=== PATIENT | female | born 1975 | race Caucasian/White ===

== ENCOUNTER 2016-05-12 22:37 | Inpatient (IN) ==
[2016-05-12] MEDS ORDERED: *HR* LORazepam 1 MG TABLET PO PRN (23:50)
[2016-05-12] MEDS ORDERED: Ibuprofen 400 MG TABLET PO PRN (23:50)
[2016-05-12] MEDS ORDERED: Mag Hydrox/Al Hydrox/Simeth 30 ML UDC PO PRN (23:50)
[2016-05-12] MEDS ORDERED: *HR* LORazepam 2 MG/ML VIAL IM PRN (23:50)
[2016-05-12] MEDS ORDERED: MOM Conc 10 ML UD.LIQ PO PRN (23:50)
[2016-05-13] MEDS: Haloperidol Lactate 5 MG/ML VIAL IM PRN (02:50)
[2016-05-13] MEDS: traZODone 50 MG TABLET PO PRN ×2 (03:26→20:46)
[2016-05-13] MEDS ORDERED: Naloxone 0.4 MG/ML INJ IVP PRN (03:43)
[2016-05-13] MEDS ORDERED: *HR* LORazepam 2 MG/ML VIAL IM PRN (03:46)
[2016-05-13 04:52] LABS: Basophils # 0.1 K/mcL (0.0-0.2); Basophils % 0.9 %; Eosinophils # 0.3 K/mcL (0.0-0.6); Eosinophils % 4.1 %; Hematocrit 38.7 % (35.3-44.9); Hemoglobin 12.7 g/dL (11.5-15.4); Immature Granulocytes % 0.3 % (0-4); Lymphocytes # 2.6 K/mcL (0.6-4.6); Lymphocytes % 37.6 %; Mean Corpuscular HGB Conc 32.8 g/dL (31.6-35.5); Mean Corpuscular Hemoglobin 28.9 pg (28.0-33.3); Mean Corpuscular Volume 88.2 fL (83.0-100.0); Mean Platelet Volume 9.3 fL (9.4-12.4); Monocytes # 0.5 K/mcL (0.0-1.3); Monocytes % 7.7 %; Neutrophils # 3.4 K/mcL (1.6-8.9); Platelet Count 182 K/mcL (140-400); Red Blood Count 4.39 M/mcL (3.82-4.97); Red Cell Distribution Width 13.5 % (11.5-14.5); Segmented Neutrophils % 49.4 %
[2016-05-13 05:04] LABS: Alanine Aminotransferase 10 Units/L (0-55); Albumin 3.3 g/dL (3.5-5.0); Albumin/Globulin Ratio 1.1 (1.1-2.2); Alkaline Phosphatase 36 Units/L (38-126); Aspartate Amino Transferase 14 Units/L (5-34); BUN/Creatinine Ratio 13 (6-26); Bilirubin,Total 0.3 mg/dL (0.2-1.2); Blood Urea Nitrogen 14 mg/dL (7-20); Calcium 8.8 mg/dL (8.6-10.8); Carbon Dioxide 17 mEq/L (19-29); Chloride 113 mEq/L (98-109); Creatine Kinase 57 Units/L (29-168); Globulin 3.1 g/dL (2.4-3.5); Glucose 101 mg/dL (70-99); Osmolality,Calculated 291 (280-300); Potassium 3.7 mEq/L (3.5-4.5); Sodium 140 mEq/L (136-145); Total Protein 6.4 g/dL (6.0-8.3); eGFR For African Americans > 60 (> 60); eGFR For Non-African Americans 58 (> 60)
[2016-05-13 05:24] LABS: Thyroid Stimulating Hormone 1.315 mcIU/mL (0.350-4.840)
[2016-05-13 05:54] LABS: Bilirubin,Urine Negative (Negative); Blood,Urine Trace (Negative); Clarity,Urine Cloudy (Clear); Color,Urine Yellow (Yellow); Glucose,Urine (UA) Normal (Normal); Ketones,Urine Negative (Negative); Leukocyte Esterase,Urine Large (Negative); Nitrite,Urine Negative (Negative); Protein,Urine Trace mg/dL (Neg-Trace); Specific Gravity,Urine 1.024 (1.010-1.025); Urobilinogen,Urine Normal (Normal)
[2016-05-13 05:57] LABS: Bacteria,Urine Moderate per hpf (None-Few); Squamous Epithelial Cell,Urine Many per lpf (None-Few); WBC,Urine TNTC per hpf (0-3)
[2016-05-13 06:03] LABS: Amphetamine Screen,Urine Negative ng/mL (Cutoff=1000); Barbiturate Screen,Urine Negative ng/mL (Cutoff=200); Benzodiazepines Screen,Urine Positive ng/mL (Cutoff=200); Cannabinoid Screen,Urine Negative ng/mL (Cutoff = 50); Cocaine Screen,Urine Negative ng/mL (Cutoff= 300); Opiate Screen,Urine Negative ng/mL (Cutoff=300); Phencyclidine Screen,Urine Positive ng/mL (Cutoff=25)
[2016-05-13 06:13] LABS: Mucus,Urine Moderate (Few)
[2016-05-13 06:15] LABS: Prolactin 12.59 ng/mL (5.18-26.53)
[2016-05-13] MEDS: Vitamin B Complex/Vit C/Vit E 1 EACH TABLET PO SCH (08:58)
[2016-05-13] MEDS: Nicotine 21 MG PATCH.TD24 TD SCH (08:58)
[2016-05-13] MEDS: clonazePAM 1 MG TABLET PO SCH ×3 (08:59→20:46)
[2016-05-13] MEDS: Folic Acid 1 MG TABLET PO SCH (08:59)
[2016-05-13] MEDS: Thiamine (B-1) 100 MG TABLET PO SCH (08:59)
[2016-05-13] MEDS: hydrOXYzine pamoate 25 MG CAPSULE PO PRN (10:17)
--- NOTE | 2016-05-13 11:52 | Psychiatry History & Physical ---
Date of Encounter: 05/13/16 Time of Encounter: 12:30 History of Present Illness Patient Stated Chief Complaint: suicidal Medicare Admission Attestation: For traditional Medicare patients the provided hospital inpatient services are reasonable and necessary and in the case of services not specified as inpatient -only under 42 CFR 419.22 (n), that they are appropriately provided as inpatient services in accordance 42 CFR 412.3. For [facility] the patient may reasonably be expected to be discharged or transferred to a hospital within 96 hours after admission to the Critical [facility]. Admitted From: Emergency Dept History of Present Illness: Ms. Pak is a 41 year old female with long history of psychiatric treatment for major depression bipolar and PTSD and substance abuse. Patient presented to emergency room with suicidal ideation and depression she stressed out by several stressors including mother's ill with cancer and she is having some family issues difficulties . She was reporting poor sleep also complained that she was given Wellbutrin by a psychiatrist and she did not tolerate it and she really recommended her mortgage more depressed. Also has a history of seizures versus pseudoseizures and she believes that she has been detained to take her medication as ordered. Patient had multiple psychiatric admissions and outpatient treatments she attempted suicide" attempt record over 50 times since she was a teenager also after admission to 180 patient attempted to strangle herself with a pillowcase and she was saved and evaluated medically and she is without any complications when she was asked why he did this she has a simplistic with "because I do not want to live. Then she said I cannot live without my mother she does everything for me. Past Med Surg Social Fam HX - Past Medical History Medical history: asthma, COPD, DVT, pulmonary embolus, other - Past Psychiatric History Psychiatric history: Reports: anxiety, bipolar, depression, PTSD, prior suicide attempt, previous psychiatric hospitalization Family psychiatric history: Unknown Family History of Suicide: Unknown - Past Surgical History Surgical History: hysterectomy, other - Social History Smoking Status: Current every day smoker Smokeless Tobacco Status: No Alcohol use: none Drug use: none - Family History Mother Living Status: Still Living Hx Family Respiratory Disorders: Yes (lung cancer) Father Living Status: Hx Family Respiratory Disorders: Yes (lung cancer) Medications & Allergies Albuterol Sulfate [Proair Respiclick] 2 puff IH Q4H PRN 03/25/15 [History] Beclomethasone Diprop 80mcg [QVAR 80 mcg] 1 puff IH BIDR PRN 03/25/15 [History] ClonazePAM [Klonopin] 1 mg PO BID 03/25/15 [History] Haloperidol [Haldol] 10 mg PO BID 03/25/15 [History] HydrOXYzine Pamoate 50 mg PO TID 03/25/15 [History] Levothyroxine [Synthroid] 150 mcg PO QAM 03/25/15 [History] Prazosin [Minipress] 1 mg PO HS 03/25/15 [History] Quetiapine Fumarate [Seroquel] 800 mg PO HS 03/25/15 [History] Sertraline [Zoloft] 50 mg PO BID 03/25/15 [History] Topiramate [Topamax] 200 mg PO BID 03/25/15 [History] SUMAtriptan Succinate [Imitrex] 6 mg SQ PRN PRN 12/21/15 [History] Allergies duloxetine [From Cymbalta] Allergy (Verified 03/25/15 22:16) Difficulty Breathing Hives moxifloxacin [From Avelox] Allergy (Verified 03/25/15 22:16) Hives Penicillins Allergy (Verified 03/25/15 22:16) Difficulty Breathing Hives Review of Systems Psychiatric: Reports: depression, anxiety, abnormal sleep pattern, suicidal ideation, hopelessness, mood swings Mental Status Exam Patient orientation: Yes Person, Yes Time, Yes Place Level of alertness: Alert Patient appearance: Appropriate, Well Groomed Behavior: calm, cooperative, guarded Psychomotor activity: Normal Eye contact: Maintains Eye Contact Mood description: Depressed, Anxious, Labile, Irritable Affect description: congruent with mood, full range, blunted Speech pattern: Normal rate, Normal rhythm, Normal tone, Limited Speech volume: Normal Thought process: Linear, Goal Oriented Thought content: Yes Suicidal ideation, Yes Preoccupation Perceptual disturbances: No Auditory hallucinations, No Visual hallucinations Attention span: Unable to Focus Memory description: Grossly Intact Patient reliability: Not Reliable Historian Intelligence estimate: Average Judgment: Fair Insight: Partial Results - Vital Signs Vital signs: Temp Pulse Resp BP 98.2 F 84 14 107/75 05/12/16 22:37 05/12/16 22:37 05/12/16 22:37 05/12/16 22:37 - Drug Levels and Toxicology Drug Levels and Toxicology: Drug Levels and Toxicity 05/13/16 04:00 Urine Opiates Screen Negative Ur Barbiturates Screen Negative Ur Phencyclidine Scrn Positive H Ur Amphetamines Screen Negative U Benzodiazepines Scrn Positive H Urine Cocaine Screen Negative U Marijuana (THC) Screen Negative - Labs Labs: Laboratory Last Values WBC 6.9 K/mcL (4.3-11.1) 05/13/16 04:29 RBC 4.39 M/mcL (3.82-4.97) 05/13/16 04:29 Hgb 12.7 g/dL (11.5-15.4) 05/13/16 04:29 Hct 38.7 % (35.3-44.9) 05/13/16 04:29 MCV 88.2 fL (83.0-100.0) 05/13/16 04:29 MCH 28.9 pg (28.0-33.3) 05/13/16 04:29 MCHC 32.8 g/dL (31.6-35.5) 05/13/16 04:29 RDW 13.5 % (11.5-14.5) 05/13/16 04:29 Plt Count 182 K/mcL (140-400) 05/13/16 04:29 MPV 9.3 fL (9.4-12.4) L 05/13/16 04:29 Immature Gran % 0.3 % (0-4) 05/13/16 04:29 Seg Neutrophils % 49.4 % 05/13/16 04:29 Lymphocytes % 37.6 % 05/13/16 04:29 Monocytes % 7.7 % 05/13/16 04:29 Eosinophils % 4.1 % 05/13/16 04:29 Basophils % 0.9 % 05/13/16 04:29 Neutrophils # 3.4 K/mcL (1.6-8.9) 05/13/16 04:29 Lymphocytes # 2.6 K/mcL (0.6-4.6) 05/13/16 04:29 Monocytes # 0.5 K/mcL (0.0-1.3) 05/13/16 04:29 Eosinophils # 0.3 K/mcL (0.0-0.6) 05/13/16 04:29 Basophils # 0.1 K/mcL (0.0-0.2) 05/13/16 04:29 Sodium 140 mEq/L (136-145) 05/13/16 04:29 Potassium 3.7 mEq/L (3.5-4.5) 05/13/16 04:29 Chloride 113 mEq/L (98-109) H 05/13/16 04:29 Carbon Dioxide 17 mEq/L (19-29) L 05/13/16 04:29 BUN 14 mg/dL (7-20) 05/13/16 04:29 Creatinine 1.04 mg/dL (0.57-1.11) 05/13/16 04:29 Est GFR ( Amer) > 60 (> 60) 05/13/16 04:29 Est GFR (Non-Af Amer) 58 (> 60) L 05/13/16 04:29 BUN/Creatinine Ratio 13 (6-26) 05/13/16 04:29 Glucose 101 mg/dL (70-99) H 05/13/16 04:29 Calculated Osmolality 291 (280-300) 05/13/16 04:29 Calcium 8.8 mg/dL (8.6-10.8) 05/13/16 04:29 Total Bilirubin 0.3 mg/dL (0.2-1.2) 05/13/16 04:29 AST 14 Units/L (5-34) 05/13/16 04:29 ALT 10 Units/L (0-55) 05/13/16 04:29 Alkaline Phosphatase 36 Units/L (38-126) L 05/13/16 04:29 Creatine Kinase 57 Units/L (29-168) 05/13/16 04:29 Serum Total Protein 6.4 g/dL (6.0-8.3) 05/13/16 04:29 Albumin 3.3 g/dL (3.5-5.0) L 05/13/16 04:29 Globulin 3.1 g/dL (2.4-3.5) 05/13/16 04:29 Albumin/Globulin Ratio 1.1 (1.1-2.2) 05/13/16 04:29 TSH 1.315 mcIU/mL (0.350-4.840) 05/13/16 04:29 Prolactin 12.59 ng/mL (5.18-26.53) 05/13/16 04:29 Random Cortisol 5.8 mcg/dl 05/13/16 04:29 Urine Color Yellow (Yellow) 05/13/16 04:00 Urine Clarity Cloudy (Clear) A 05/13/16 04:00 Urine pH 6.0 pH Units (5.0-8.0) 05/13/16 04:00 Ur Specific [place] 1.024 (1.010-1.025) 05/13/16 04:00 Urine Protein Trace mg/dL (Neg-Trace) 05/13/16 04:00 Urine Glucose (UA) Normal mg/dL (Normal) 05/13/16 04:00 Urine Ketones Negative mg/dL (Negative) 05/13/16 04:00 Urine Blood Trace (Negative) H 05/13/16 04:00 Urine Nitrite Negative (Negative) 05/13/16 04:00 Urine Bilirubin Negative (Negative) 05/13/16 04:00 Urine Urobilinogen Normal mg/dL (Normal) 05/13/16 04:00 Ur Leukocyte Esterase Large (Negative) H 05/13/16 04:00 Urine Microscopic RBC 5-15 per hpf (0-3) H 05/13/16 04:00 Urine Microscopic WBC TNTC per hpf (0-3) H 05/13/16 04:00 Ur Squamous Epith Cells Many per lpf (None-Few) H 05/13/16 04:00 Urine Bacteria Moderate per hpf (None-Few) H 05/13/16 04:00 Hyaline Casts Test Not Performed 05/13/16 04:00 Urine Mucus Moderate (Few) H 05/13/16 04:00 Ur Culture Indicated? YES (NO) A 05/13/16 04:00 Urine Opiates Screen Negative ng/mL (Lzbibx=395) 05/13/16 04:00 Ur Barbiturates Screen Negative ng/mL (Qtbdgn=582) 05/13/16 04:00 Ur Phencyclidine Scrn Positive ng/mL (Cutoff=25) H 05/13/16 04:00 Ur Amphetamines Screen Negative ng/mL (Fgncll=2406) 05/13/16 04:00 U Benzodiazepines Scrn Positive ng/mL (Mdrwgz=286) H 05/13/16 04:00 Urine Cocaine Screen Negative ng/mL (Cutoff= 300) 05/13/16 04:00 U Marijuana (THC) Screen Negative ng/mL (Cutoff = 50) 05/13/16 04:00 - Impressions Impressions Chest X-Ray 05/13/16 08:00 IMPRESSION: No acute cardiopulmonary process. D/ / 05/13/2016 09:05:52 Anna Zavaleta MD / [facility] Interpreting Provider: Anna Zavaleta MD Head CT 05/13/16 08:00 IMPRESSION: No acute intracranial abnormality. D/ / Kristen Nayak MD / Kristen Nayak MD Interpreting Provider: Kristen Nayak MD Assessment and Plan (1) Bipolar 1 disorder Current visit: No Status: Chronic Plan: Admit inpatient for safety and stabilization, Close observation, Suicide Precautions per unit protocol, Encourage participation in unit milieu, Group Therapy, Monitor sleep, Monitor appetite Additional Plan: will discontinue wellbutrin.pt has history of seizures. Risks, benefits, side effects, alternatives discussed w/pt: Yes Patient agreeable to treatment: Yes
--- NOTE | 2016-05-13 11:54 | Internal Medicine Consult Note ---
Date of Encounter: 05/13/16 Time of Encounter: 11:49 Internal Medicine - CN: HPI - Data of Consult Patient: new to practice Requesting Physician: Rick Metz MD - Consult Narrative Reason for consult: seizure like activity History of present illness: Ms. Pak is a 41 year old female with history of pesudo seizures, followed by Dr. Rice , neurology as outpatient. hospitalist service has been consulted for seizure-like activity that was noted last night. As per the description of the night nurse, patient was found in the room around 2 AM at night where she was found to have jerking movements of her bilateral arms and was found cyanotic as she had tied her neck with the pillow cover. After the nursing untied her neck, she was able to come back to her baseline and was fully conscious and oriented to time this and person. rafy abnormal movement lasted for ~3mins as per rafy nurse. She did not have any loss of consciousness or no bowel and bladder incontinence. As per the patient and these episodes, and the once a week, brought about by anxiety and stress and is not on any medications given the nature of pseudo seizures. Patient evaluated at the bedside this morning, denies any complaints, no dizziness, headache or abnormal movements. neurology has been consulted.CT head was done that is negative for any acute pathology. - Constitutional Constitutional: as per HPI - EENT Ears: as per HPI Nose, mouth and throat: as per HPI - Breasts Breasts: as per HPI - Cardiovascular Cardiovascular ROS IM: as per HPI - Respiratory Respiratory: as per HPI - Gastrointestinal Gastrointestinal: as per HPI - Genitourinary Genitourinary: as per HPI Menstruation: as per HPI - Musculoskeletal Musculoskeletal ROS IM: as per HPI - Integumentary Integumentary IM: as per HPI - Neurological Neurological ROS: as per HPI - Psychiatric Psychiatric: as per HPI - Endocrine Endocrine IM: as per HPI - Hematologic/Lymphatic Hematologic/Lymphatic: as per HPI Past Med Surg Social Fam HX - Past Medical History Medical history: asthma, COPD, DVT, pulmonary embolus, other Psychiatric history: anxiety, bipolar, depression - Past Surgical History Surgical History: hysterectomy, other - Social History Smoking Status: Current every day smoker Smokeless Tobacco Status: No Alcohol use: none Drug use: none - Family History Mother Living Status: Still Living Hx Family Respiratory Disorders: Yes (lung cancer) Father Living Status: Hx Family Respiratory Disorders: Yes (lung cancer) Internal Medicine - CN: Meds Albuterol Sulfate [Proair Respiclick] 2 puff IH Q4H PRN 03/25/15 [History] Beclomethasone Diprop 80mcg [QVAR 80 mcg] 1 puff IH BIDR PRN 03/25/15 [History] ClonazePAM [Klonopin] 1 mg PO BID 03/25/15 [History] Haloperidol [Haldol] 10 mg PO BID 03/25/15 [History] HydrOXYzine Pamoate 50 mg PO TID 03/25/15 [History] Levothyroxine [Synthroid] 150 mcg PO QAM 03/25/15 [History] Prazosin [Minipress] 1 mg PO HS 03/25/15 [History] Quetiapine Fumarate [Seroquel] 800 mg PO HS 03/25/15 [History] Sertraline [Zoloft] 50 mg PO BID 03/25/15 [History] Topiramate [Topamax] 200 mg PO BID 03/25/15 [History] SUMAtriptan Succinate [Imitrex] 6 mg SQ PRN PRN 12/21/15 [History] Allergies duloxetine [From Cymbalta] Allergy (Verified 03/25/15 22:16) Difficulty Breathing Hives moxifloxacin [From Avelox] Allergy (Verified 03/25/15 22:16) Hives Penicillins Allergy (Verified 03/25/15 22:16) Difficulty Breathing Hives Internal Medicine - CN: Exam - Constitutional Vitals: Temp Pulse Resp BP 98.2 F 84 14 107/75 05/12/16 22:37 05/12/16 22:37 05/12/16 22:37 05/12/16 22:37 General appearance IM: Present: disheveled, A&O X 3, no acute distress Exam: neck- supple chest- b/l clear,n o added sounds CVS-s1 and s2, no m/r/g abd-soft, non tender, bs are present ext- no edema neuro- no focal deficits, alert and orientedx3. Internal Medicine - CN: Reslt - Labs CBC & Chem 7: 05/13/16 04:29 05/13/16 04:29 Labs: Short CBC 05/13/16 Range/Units 04:29 WBC 6.9 (4.3-11.1) K/mcL Hgb 12.7 (11.5-15.4) g/dL Hct 38.7 (35.3-44.9) % Plt Count 182 (140-400) K/mcL Neutrophils # 3.4 (1.6-8.9) K/mcL BMP 05/13/16 04:29 Sodium 140 Potassium 3.7 Chloride 113 H Carbon Dioxide 17 L BUN 14 Creatinine 1.04 Glucose 101 H Calcium 8.8 Liver Function 05/13/16 Range/Units 04:29 Total Bilirubin 0.3 (0.2-1.2) mg/dL AST 14 (5-34) Units/L ALT 10 (0-55) Units/L Alkaline Phosphatase 36 L (38-126) Units/L Albumin 3.3 L (3.5-5.0) g/dL Urine 05/13/16 Range/Units 04:00 Urine Color Yellow (Yellow) Urine Clarity Cloudy A (Clear) Urine pH 6.0 (5.0-8.0) pH Units Ur Specific [place] 1.024 (1.010-1.025) Urine Protein Trace (Neg-Trace) mg/dL Urine Glucose (UA) Normal (Normal) mg/dL - Impressions Impressions Chest X-Ray 05/13/16 08:00 IMPRESSION: No acute cardiopulmonary process. D/ / 05/13/2016 09:05:52 Anna Zavaleta MD / [facility] Interpreting Provider: Anna Zavaleta MD Head CT 05/13/16 08:00 IMPRESSION: No acute intracranial abnormality. D/ / Kristen Nayak MD / Kristen Nayak MD Interpreting Provider: Kristen Nayak MD - Assessment and Plan (1) Pseudoseizure Current Visit: Yes Status: Acute Assessment and plan: the episode last night was most likely 2/2 pseudoseizure. as per the patient she attempted to kill herself and was extremely anxious and stressful last night which is most likely the cause of her pseudo seizure. patinet follows with Dr. Rice as OP as is not on any meds. at the time of my assesment, patient is back to her baseline CT head is negative for any acute pathology. neurology has been consulted. will follow recommendtaion for any further intervention at this time. no new medication at this time. continue one to one observation for suicide precautions. rest of the management as per primary service. (2) Suicidal ideation Current Visit: Yes Status: Acute Consult Discharge Plan - Plan Referrals: NO,PCP [Primary Care Provider] -
--- NOTE | 2016-05-13 15:52 | Neurology - Consult Note ---
<Pablo Marin - Last Filed: 05/13/16 16:05> Date of Encounter: 05/13/16 Time of Encounter: 15:49 Assessment and Plan (1) Pseudoseizure Current Visit: Yes Status: Acute - history of pseudoseizure, follows as an outpatient with Dr. Rice, not on medication - recently started on Wellbutrin and otherwise has been taking regular medications without any alterations - she admits to 1-2/week psuedoseizures - per documentation from nurse recall around 2AM this morning seizure-like activity occurred after trying to hang herself with pillowcase, she had jerking movements but no urinary incontinence or tongue trauma, unfortunately patient unable to recall event - currently has no physical complaints, paresthesia, neck pain, or difficulty in breathing. Gait was observed and normal. Muscle strength normal. Equal pulses and anterior cervical neck appears normal without any expanding hematoma or mass - EEG performed and reviewed with Dr. Montano, viewed as normal without epileptic activity - recommend follow up with Dr. Rice and psychiatrist after discharge History of Present Illness Chief complaint: Seizure HPI: Ms. Pak is a 41 year old female history depression, bipolar, migraines, and pseudoseizures admitted to 1A unit for suicidal ideation. Patient was found after attempting to hang herself with pillowcase in her 1A room to exhibit seizure like activity. Per documentation it was described as bilateral jerky movements with stiffening that was reported to have lasted 3 minutes. She denies any physical complaints. She would not found to have any urinary incontinence or trauma such as tongue laceration. Denies any paresthesias or neck pain. She has migraines and follows with Dr. Rice where she receives Imitrex injections. EEG in the past revealed no epileptic seizure activity. Recently started on Wellbutrin 1 month ago for psychiatric illness and may be contributing to her current SI. Otherwise no new medications that would lower seizure threshold. Denies recent illness, travel, changes in medications. Past Med Surg Social Fam HX - Past Medical History Medical history: asthma, COPD, DVT, pulmonary embolus, other Psychiatric history: anxiety, bipolar, depression, PTSD, prior suicide attempt, previous psychiatric hospitalization - Past Surgical History Surgical History: hysterectomy, other - Social History Smoking Status: Current every day smoker Smokeless Tobacco Status: No Alcohol use: none Drug use: none - Family History Mother Living Status: Still Living Hx Family Respiratory Disorders: Yes (lung cancer) Father Living Status: Hx Family Respiratory Disorders: Yes (lung cancer) Medications and Allergies Albuterol Sulfate [Proair Respiclick] 2 puff IH Q4H PRN 03/25/15 [History] Beclomethasone Diprop 80mcg [QVAR 80 mcg] 1 puff IH BIDR PRN 03/25/15 [History] ClonazePAM [Klonopin] 1 mg PO BID 03/25/15 [History] Haloperidol [Haldol] 10 mg PO BID 03/25/15 [History] HydrOXYzine Pamoate 50 mg PO TID 03/25/15 [History] Levothyroxine [Synthroid] 150 mcg PO QAM 03/25/15 [History] Prazosin [Minipress] 1 mg PO HS 03/25/15 [History] Quetiapine Fumarate [Seroquel] 800 mg PO HS 03/25/15 [History] Sertraline [Zoloft] 50 mg PO BID 03/25/15 [History] Topiramate [Topamax] 200 mg PO BID 03/25/15 [History] SUMAtriptan Succinate [Imitrex] 6 mg SQ PRN PRN 12/21/15 [History] Allergies duloxetine [From Cymbalta] Allergy (Verified 03/25/15 22:16) Difficulty Breathing Hives moxifloxacin [From Avelox] Allergy (Verified 03/25/15 22:16) Hives Penicillins Allergy (Verified 03/25/15 22:16) Difficulty Breathing Hives All Systems: A 10-system review of systems was performed and is negative for pertinent findings except as documented above in the HPI. - Constitutional Constitutional ROS IM: no fever(s) - Cardiovascular Cardiovascular ROS IM: as per HPI - Respiratory Respiratory IM: as per HPI - Gastrointestinal Gastrointestinal: as per HPI - Genitourinary Genitourinary ROS: as per HPI - Musculoskeletal Musculoskeletal ROS IM: as per HPI - Integumentary Integumentary IM: as per HPI - Neurological Neurological ROS: headache(s), no abnormal gait, no abnormal hearing, no dizziness, no syncope - Psychiatric Psychiatric general PM: depression, suicidal ideation Physical Examination - Vital Signs Vital Signs: Initial Vital Signs Temp Pulse Resp BP 98.2 F 84 14 107/75 05/12/16 22:37 05/12/16 22:37 05/12/16 22:37 05/12/16 22:37 - Constitutional General appearance: comfortable - Neurologic Sensorimotor examination: intact Detailed motor examination: grossly full strength in all extremities, full strength in all major muscle groups Motor examination - right side: 5/5: deltoids, biceps, triceps, wrist flexion, wrist extension, roll reclaimer, hip flexors, tibialis Anterior, quadriceps, toe extension (EHL), plantarflexion Motor examination - left side: 5/5: deltoids, biceps, triceps, wrist flexion, wrist extension, hip flexors, roll reclaimer, quadriceps, tibialis Anterior, toe extension (EHL), plantarflexion Detailed sensory examination: intact, light touch Reflex and gait examination: intact Mental Status Examination: awake, alert, oriented to person, oriented to place, oriented to time, follows commands appropriately, answers questions appropriately, no aphasia Cranial nerve examination: PERRL, EOMI, visual gordon intact, corneal reflexes brisk symmetrically, sensory to face intact, mastication intact, no facial asymmetry is present, no dysarthria, hearing is intact symmetrically, soft palate elevates bilaterally upon phonation, flexes SCM and trapezius muscles symmetrically with full power, tongue protrudes midline, no atrophy or facial fasiculations present Results - Laboratory Findings CBC and BMP: 05/13/16 04:29 05/13/16 04:29 Abnormal lab findings: Abnormal lab results MPV 9.3 fL (9.4-12.4) L 05/13/16 04:29 Chloride 113 mEq/L (98-109) H 05/13/16 04:29 Carbon Dioxide 17 mEq/L (19-29) L 05/13/16 04:29 Est GFR (Non-Af Amer) 58 (> 60) L 05/13/16 04:29 Glucose 101 mg/dL (70-99) H 05/13/16 04:29 Alkaline Phosphatase 36 Units/L (38-126) L 05/13/16 04:29 Albumin 3.3 g/dL (3.5-5.0) L 05/13/16 04:29 Urine Clarity Cloudy (Clear) A 05/13/16 04:00 Urine Blood Trace (Negative) H 05/13/16 04:00 Ur Leukocyte Esterase Large (Negative) H 05/13/16 04:00 Urine Microscopic RBC 5-15 per hpf (0-3) H 05/13/16 04:00 Urine Microscopic WBC TNTC per hpf (0-3) H 05/13/16 04:00 Ur Squamous Epith Cells Many per lpf (None-Few) H 05/13/16 04:00 Urine Bacteria Moderate per hpf (None-Few) H 05/13/16 04:00 Urine Mucus Moderate (Few) H 05/13/16 04:00 Ur Culture Indicated? YES (NO) A 05/13/16 04:00 Ur Phencyclidine Scrn Positive ng/mL (Cutoff=25) H 05/13/16 04:00 U Benzodiazepines Scrn Positive ng/mL (Wyimoj=667) H 05/13/16 04:00 Consult Discharge Plan - Plan Referrals: [facility] [Outside] - 05/18/16 10:00 am (The above appointment is with [facility] for counseling. You will also see [facility] psychiatric prescriber, on 05/25/2016 @ 4:00pm.) <Jose A Montano E - Last Filed: 05/13/16 18:16> Date of Encounter: 05/13/16 Time of Encounter: 18:07 Assessment and Plan (1) Pseudoseizure Current Visit: Yes Status: Acute Case was discussed with Dr. Marin. I agree with his impressions and plan as stated, History of Present Illness HPI: Ms. Pak is a 41 year old female with a known history of pseudoseizure seen for the same. She was admitted for suicidal ideations, and an actual suicidal attempt last night. She is back to her normal baseline. The case was discussed with Dr. Marin. She was seen and examined independently. I agree with his history as stated. All Systems: A 10-system review of systems was performed and is negative for pertinent findings except as documented above in the HPI. Physical Examination - Vital Signs Vital Signs: Initial Vital Signs Temp Pulse Resp BP 98.2 F 84 14 107/75 05/12/16 22:37 05/12/16 22:37 05/12/16 22:37 05/12/16 22:37 Results - Laboratory Findings CBC and BMP: 05/13/16 04:29 05/13/16 04:29 Abnormal lab findings: Abnormal lab results MPV 9.3 fL (9.4-12.4) L 05/13/16 04:29 Chloride 113 mEq/L (98-109) H 05/13/16 04:29 Carbon Dioxide 17 mEq/L (19-29) L 05/13/16 04:29 Est GFR (Non-Af Amer) 58 (> 60) L 05/13/16 04:29 Glucose 101 mg/dL (70-99) H 05/13/16 04:29 Alkaline Phosphatase 36 Units/L (38-126) L 05/13/16 04:29 Albumin 3.3 g/dL (3.5-5.0) L 05/13/16 04:29 Urine Clarity Cloudy (Clear) A 05/13/16 04:00 Urine Blood Trace (Negative) H 05/13/16 04:00 Ur Leukocyte Esterase Large (Negative) H 05/13/16 04:00 Urine Microscopic RBC 5-15 per hpf (0-3) H 05/13/16 04:00 Urine Microscopic WBC TNTC per hpf (0-3) H 05/13/16 04:00 Ur Squamous Epith Cells Many per lpf (None-Few) H 05/13/16 04:00 Urine Bacteria Moderate per hpf (None-Few) H 05/13/16 04:00 Urine Mucus Moderate (Few) H 05/13/16 04:00 Ur Culture Indicated? YES (NO) A 05/13/16 04:00 Ur Phencyclidine Scrn Positive ng/mL (Cutoff=25) H 05/13/16 04:00 U Benzodiazepines Scrn Positive ng/mL (Dmhwbt=920) H 05/13/16 04:00
--- NOTE | 2016-05-13 15:57 | EEG/EMG/Oth Biometrics Report ---
EEG Procedure Report EEG Procedure: Routine EEG Procedure Note: This is a report of a 21 channel bipolar and referential montage EEG. A posterior dominant rhythm of 9-9-1/2 Hz moderate voltage alpha frequencies identified symmetrically in the posterior head regions. This rhythm attenuates symmetrically with eye opening. Superimposed beta frequencies are identified in the anterior leads symmetrically. Hyperventilation is not performed in the recording. Periods of drowsiness and stage II sleep are identified as reference by dropout of the posterior dominant rhythm and emergence of vertex activity, K complexes, and sleep spindles. Photic stimulation is performed and does not produce a driving response. EKG rhythm strip reveals what appears to be a left bundle branch block, with low -voltage potentials at 70 beats per minute. Impressions: This EEG recording is within normal limits. There is no evidence of epileptiform activity identified during the study. Comment: A normal EEG does not preclude a diagnosis of seizures or epilepsy. If the clinical suspicion for seizure activity is high, serial EEGs or perhaps a prolonged recording may increase the yield. Please correlate clinically. The documentation in the history of HPI and plan were at least partially created by [employer] recognition technology by Dr. Montano. Errors in grammar, wording or other phrases may exist. If errors are found after the documentation signed, they will be addressed individually in the addendum section of this document when appropriate.
[2016-05-13] MEDS ORDERED: traZODone 50 MG TABLET PO ONE (23:00)
[2016-05-14] MEDS: traZODone 50 MG TABLET PO PRN (01:15)
[2016-05-14] MEDS: Haloperidol Lactate 5 MG/ML VIAL IM PRN (02:31)
[2016-05-14] MEDS ORDERED: SUMAtriptan 6 MG/0.5 ML SQ PRN (09:00)
[2016-05-14] MEDS: clonazePAM 1 MG TABLET PO SCH ×2 (09:33→15:43)
[2016-05-14] MEDS: Nicotine 21 MG PATCH.TD24 TD SCH ×2 (09:35→13:51)
[2016-05-14] MEDS: Folic Acid 1 MG TABLET PO SCH (09:35)
[2016-05-14] MEDS: Vitamin B Complex/Vit C/Vit E 1 EACH TABLET PO SCH (09:35)
[2016-05-14] MEDS: Thiamine (B-1) 100 MG TABLET PO SCH (09:36)
--- NOTE | 2016-05-14 12:55 | Psychiatry Progress Note ---
Date of Encounter: 05/14/16 Time of Encounter: 12:54 Subjective Interval history: Patient is here for follow-up. Nursing staff continue to monitor patient's safety. She was seen by neurology consult and had an EEG reported none. Epileptic seizure. Or pseudoseizures. She continued to report suicidal ideation her mood is slightly improving she complain of poor sleep . her home medication are being verified by the nursing staff. Review of Systems Psychiatric: Reports: depression, anxiety, abnormal sleep pattern, suicidal ideation, hopelessness, mood swings Objective: Exam Patient orientation: Yes Person, Yes Time, Yes Place Level of alertness: Alert Patient appearance: Appropriate, Well Groomed Behavior: calm, cooperative, guarded Psychomotor activity: Normal Eye contact: Maintains Eye Contact Mood description: Depressed, Anxious, Labile, Irritable Affect description: congruent with mood, full range, blunted Speech pattern: Normal rate, Normal rhythm, Normal tone, Limited Speech volume: Normal Thought process: Linear, Goal Oriented Thought content: Yes Suicidal ideation, Yes Preoccupation Perceptual disturbances: No Auditory hallucinations, No Visual hallucinations Judgment: Fair Insight: Partial Results - Vital Signs Vital Signs: Temp Pulse Resp BP 97.8 F 76 16 102/65 05/14/16 09:00 05/14/16 09:00 05/14/16 09:00 05/14/16 09:00 - Impressions ITS Impressions Chest X-Ray 05/13/16 08:00 IMPRESSION: No acute cardiopulmonary process. D/ / 05/13/2016 09:05:52 Anna Zavaleta MD / [facility] Interpreting Provider: Anna Zavaleta MD Head CT 05/13/16 08:00 IMPRESSION: No acute intracranial abnormality. D/ / Kristen Nayak MD / Kristen Nayak MD Interpreting Provider: Kristen Nayak MD Assessment and Plan (1) Bipolar 1 disorder Current visit: No Status: Chronic Risks, benefits, side effects, alternatives discussed w/pt: Yes Patient agreeable to treatment: Yes Consult Discharge Plan - Plan Referrals: [facility] [Outside] - 05/18/16 10:00 am (The above appointment is with Stevenson for counseling. You will also see Cuong psychiatric prescriber, on 05/25/2016 @ 4:00pm.)
[2016-05-14] MEDS ORDERED: clonazePAM 0.5 MG TABLET PO PRN (15:32)
[2016-05-15] MEDS: Topiramate 100 MG TABLET PO SCH (08:27)
[2016-05-15] MEDS: Nicotine 21 MG PATCH.TD24 TD SCH (08:27)
[2016-05-15] MEDS: Thiamine (B-1) 100 MG TABLET PO SCH (08:28)
[2016-05-15] MEDS: Vitamin B Complex/Vit C/Vit E 1 EACH TABLET PO SCH (08:28)
[2016-05-15] MEDS: Folic Acid 1 MG TABLET PO SCH (08:28)
--- NOTE | 2016-05-15 10:42 | Psychiatry Progress Note ---
Date of Encounter: 05/15/16 Time of Encounter: 10:15 Subjective Interval history: Patient is seen for follow-up. Nursing staff reports she slept 8 hours. Her medication were ordered and adjusted including Seroquel and Topamax. She refuses to participate in activities and seclude herself in her room. She continued to voice suicidal ideation. Mood and affect are improving. She is compliant with medication and anxious about discharge. Review of Systems Psychiatric: Reports: depression, anxiety, abnormal sleep pattern, suicidal ideation, hopelessness Objective: Exam Patient orientation: Yes Person, Yes Time, Yes Place Level of alertness: Alert Patient appearance: Appropriate, Well Groomed Behavior: calm, cooperative, guarded Psychomotor activity: Normal Eye contact: Maintains Eye Contact Mood description: Depressed, Anxious, Labile Affect description: congruent with mood, full range Speech pattern: Normal rate, Normal rhythm, Normal tone, Limited Speech volume: Normal Thought process: Linear, Goal Oriented Thought content: Yes Suicidal ideation, Yes Preoccupation Perceptual disturbances: No Auditory hallucinations, No Visual hallucinations Judgment: Fair Insight: Partial Results - Vital Signs Vital Signs: Temp Pulse Resp BP 98.2 F 85 16 103/70 05/15/16 08:52 05/15/16 08:52 05/15/16 08:52 05/15/16 08:52 - Impressions ITS Impressions Chest X-Ray 05/13/16 08:00 IMPRESSION: No acute cardiopulmonary process. D/ / 05/13/2016 09:05:52 Anna Zavaleta MD / [facility] Interpreting Provider: Anna Zavaleta MD Head CT 05/13/16 08:00 IMPRESSION: No acute intracranial abnormality. D/ / Kristen Nayak MD / Kristen Nayak MD Interpreting Provider: Kristen Nayak MD Assessment and Plan (1) Bipolar 1 disorder Current visit: No Status: Chronic Plan: Continue hospitalization, Close observation, Suicide Precautions per unit protocol, Encourage participation in unit milieu, Group Therapy, Monitor sleep, Monitor appetite Risks, benefits, side effects, alternatives discussed w/pt: Yes Patient agreeable to treatment: Yes Consult Discharge Plan - Plan Referrals: [facility] [Outside] - 05/18/16 10:00 am (The above appointment is with Stevenson for counseling. You will also see Cuong psychiatric prescriber, on 05/25/2016 @ 4:00pm.)
[2016-05-15] MEDS: hydrOXYzine pamoate 25 MG CAPSULE PO PRN (21:49)
[2016-05-15] MEDS: traZODone 50 MG TABLET PO PRN (23:28)
[2016-05-16] MEDS: Nicotine 21 MG PATCH.TD24 TD SCH (08:17)
[2016-05-16] MEDS: Folic Acid 1 MG TABLET PO SCH (08:17)
[2016-05-16] MEDS: Vitamin B Complex/Vit C/Vit E 1 EACH TABLET PO SCH (08:17)
[2016-05-16] MEDS: Topiramate 100 MG TABLET PO SCH (08:18)
[2016-05-16] MEDS: Thiamine (B-1) 100 MG TABLET PO SCH (08:18)
--- NOTE | 2016-05-16 12:42 | Psychiatry Progress Note ---
Date of Encounter: 05/16/16 Time of Encounter: 02:00 Subjective Interval history: pt seen for follow up. She is denying suicidal ideation or poor sleep improved and participate in activities and interested in discharge. Review of Systems Psychiatric: Reports: depression, anxiety, abnormal sleep pattern Objective: Exam Patient orientation: Yes Person, Yes Time, Yes Place Level of alertness: Alert Patient appearance: Appropriate, Well Groomed Behavior: calm, cooperative, guarded Psychomotor activity: Normal Eye contact: Maintains Eye Contact Mood description: Depressed, Anxious, Labile Affect description: congruent with mood, full range Speech pattern: Normal rate, Normal rhythm, Normal tone, Limited Speech volume: Normal Thought process: Linear, Goal Oriented Thought content: Yes Preoccupation Perceptual disturbances: No Auditory hallucinations, No Visual hallucinations Judgment: Fair Insight: Partial Results - Vital Signs Vital Signs: Temp Pulse Resp BP 98 F 91 16 103/71 05/16/16 09:00 05/16/16 09:00 05/16/16 09:00 05/16/16 09:00 - Impressions ITS Impressions Chest X-Ray 05/13/16 08:00 IMPRESSION: No acute cardiopulmonary process. D/ / 05/13/2016 09:05:52 Anna Zavaleta MD / [facility] Interpreting Provider: Anna Zavaleta MD Head CT 05/13/16 08:00 IMPRESSION: No acute intracranial abnormality. D/ / Kristen Nayak MD / Kristen Nayak MD Interpreting Provider: Kristen Nayak MD Assessment and Plan (1) Bipolar 1 disorder Status: Chronic Plan: Continue hospitalization, Close observation, Suicide Precautions per unit protocol, Encourage participation in unit milieu, Group Therapy, Monitor sleep, Monitor appetite Risks, benefits, side effects, alternatives discussed w/pt: Yes Patient agreeable to treatment: Yes (2) Suicidal ideation Status: Acute Plan: Continue hospitalization, Close observation, Encourage participation in unit milieu, Group Therapy, Monitor sleep, Monitor appetite Risks, benefits, side effects, alternatives discussed w/pt: Yes Patient agreeable to treatment : Yes Consult Discharge Plan - Plan Instructions: Mood Disorders (DC) Referrals: [facility] [Outside] - 05/25/16 4:00 pm (The above appointment is with Cuong psychiatric prescriber. You tamir also see Graham for counseling on 06/01/2016 @ 4:00pm.) Prescriptions: Quetiapine Fumarate [Seroquel] 25 mg PO 0800,1400 #60 tablet Quetiapine Fumarate [Seroquel] 600 mg PO HS #30 tablet Sertraline [Zoloft] 100 mg PO HS #30 tablet
--- NOTE | 2016-05-16 13:09 | Psychiatry Progress Note ---
Date of Encounter: 05/16/16 Time of Encounter: 13:00 Subjective Interval history: Patient seen for follow-up. Nurses have pressure continued to make statements about suicidal ideation otherwise she participates in activities and has been compliant with medication. She reports occasional insomnia and ask for Seroquel to be increased. She continued to endorse suicidal ideation and currently she is off one on one observation but continued to be monitored for suicidal precautions. Review of Systems Psychiatric: Reports: depression, anxiety, abnormal sleep pattern, suicidal ideation, hopelessness Objective: Exam Patient orientation: Yes Person, Yes Time, Yes Place Level of alertness: Alert Patient appearance: Appropriate, Well Groomed Behavior: calm, cooperative, guarded Psychomotor activity: Normal Eye contact: Maintains Eye Contact Mood description: Depressed, Anxious, Labile Affect description: congruent with mood, full range Speech pattern: Normal rate, Normal rhythm, Normal tone, Limited Speech volume: Normal Thought process: Linear, Goal Oriented Thought content: Yes Suicidal ideation, Yes Preoccupation Perceptual disturbances: No Auditory hallucinations, No Visual hallucinations Judgment: Fair Insight: Partial Results - Vital Signs Vital Signs: Temp Pulse Resp BP 98 F 91 16 103/71 05/16/16 09:00 05/16/16 09:00 05/16/16 09:00 05/16/16 09:00 - Impressions ITS Impressions Chest X-Ray 05/13/16 08:00 IMPRESSION: No acute cardiopulmonary process. D/ / 05/13/2016 09:05:52 Anna Zavaleta MD / [facility] Interpreting Provider: Anna Zavaleta MD Head CT 05/13/16 08:00 IMPRESSION: No acute intracranial abnormality. D/ / Kristen Nayak MD / Kris[facility] Nayak MD Interpreting Provider: Kristen Nayak MD Assessment and Plan (1) Bipolar 1 disorder Current visit: No Status: Chronic Plan: Continue hospitalization, Close observation, Suicide Precautions per unit protocol, Encourage participation in unit milieu, Group Therapy, Monitor sleep, Monitor appetite Risks, benefits, side effects, alternatives discussed w/pt: Yes Patient agreeable to treatment: Yes Consult Discharge Plan - Plan Referrals: [facility] [Outside] - 05/18/16 10:00 am (The above appointment is with Stevenson for counseling. You will also see Cuong psychiatric prescriber, on 05/25/2016 @ 4:00pm.)
[2016-05-16] MEDS: hydrOXYzine pamoate 25 MG CAPSULE PO PRN (20:29)
[2016-05-17] MEDS: traZODone 50 MG TABLET PO PRN (01:21)
[2016-05-17] MEDS: Nicotine 21 MG PATCH.TD24 TD SCH (08:24)
[2016-05-17] MEDS: Vitamin B Complex/Vit C/Vit E 1 EACH TABLET PO SCH (08:25)
[2016-05-17] MEDS: Folic Acid 1 MG TABLET PO SCH (08:25)
[2016-05-17] MEDS: Thiamine (B-1) 100 MG TABLET PO SCH (08:25)
[2016-05-17] MEDS: Topiramate 100 MG TABLET PO SCH (08:26)
[2016-05-17] MEDS: hydrOXYzine pamoate 25 MG CAPSULE PO PRN (15:39)
[2016-05-17 16:37] LABS: Bilirubin,Urine Negative (Negative); Blood,Urine Negative (Negative); Clarity,Urine Clear (Clear); Color,Urine Yellow (Yellow); Glucose,Urine (UA) Normal (Normal); Ketones,Urine Negative (Negative); Leukocyte Esterase,Urine Large (Negative); Nitrite,Urine Negative (Negative); Protein,Urine Negative (Neg-Trace); Specific Gravity,Urine 1.015 (1.010-1.025); Urobilinogen,Urine Normal (Normal)
[2016-05-17 16:41] LABS: Bacteria,Urine Few per hpf (None-Few); Hyaline Casts,Urine None Seen per lpf (None-Few); RBC,Urine 0-3 per hpf (0-3); Squamous Epithelial Cell,Urine Many per lpf (None-Few); WBC,Urine 15-30 per hpf (0-3)
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
[2016-05-18] MEDS: Nicotine 21 MG PATCH.TD24 TD SCH (08:19)
[2016-05-18] MEDS: Vitamin B Complex/Vit C/Vit E 1 EACH TABLET PO SCH (08:20)
[2016-05-18] MEDS: Folic Acid 1 MG TABLET PO SCH (08:20)
[2016-05-18] MEDS: Thiamine (B-1) 100 MG TABLET PO SCH (08:20)
[2016-05-18] MEDS: Topiramate 100 MG TABLET PO SCH (08:20)
[2016-05-18] MEDS: hydrOXYzine pamoate 25 MG CAPSULE PO PRN ×3 (09:53→22:00)
--- NOTE | 2016-05-18 12:50 | Psychiatry Progress Note ---
Date of Encounter: 05/18/16 Time of Encounter: 12:30 Subjective Interval history: Ms. Pak told me today "I slept pretty good last night". She denied being suicidal. She stated that she was having no problems with the Haldol having been stopped as well as all the Klonopin PRN being stopped. She stated she still felt a little anxious during the day and that the low dose of Vistaril helped some but was wanting to talk again about a possible low dose of Seroquel during the day to help the agitation and/or anxiety. I talked her previously about this and repeated what I said in regards to taking 25 mg of Seroquel one or 2 times during the day. Seroquel helps to relax her at night and sleep better and she is hopeful it will help her anxiety during the day and not make her to sedated. She stated that she would like to try that to see if it helped further with the anxiety. She denied any auditory/visual hallucinations. She stated she still had sporadic thoughts of suicide but had no plan. She denied any homicidal ideation. Her depression is getting better. She is interacting more on the unit and eating appropriately; not feeling hopeless and helpless. We discussed possible discharge plans in the next 24 to 48 hours. She said she would like to try the adjustment in the Seroquel first and then plan for discharge. Note: I also discussed with her the urinary symptoms she was having and reviewed with her, her urine analysis. It was nitrite negative and had been sent for culture and sensitivity, but it appeared she did not have a urinary tract infection. We will wait further for the C&S results. Plan: Add a low dose Seroquel 25 mg po q 0800' and q1400' targeting her agitation and anxiety during the day. Review of Systems Psychiatric: Reports: depression, anxiety Objective: Exam Patient orientation: Yes Person, Yes Time, Yes Place Level of alertness: Alert Patient appearance: Appropriate, Well Groomed Behavior: cooperative Psychomotor activity: Abnormal movements (mild hand tremor bilateral still present but less prominant) Eye contact: Maintains Eye Contact Mood description: Anxious, Other (hypervigilant in thought regarding anxiety) Affect description: congruent with mood, full range Speech pattern: Normal rate, Normal rhythm, Normal tone, Appropriate Speech volume: Normal Thought process: Linear, Goal Oriented Judgment: Fair Insight: Partial (Improving) Results - Vital Signs Vital Signs: Temp Pulse Resp BP 98.6 F 91 16 103/72 05/18/16 08:15 05/18/16 08:15 05/18/16 08:15 05/18/16 08:15 - Labs Labs: Laboratory Results - last 24 hr 05/17/16 16:25 Urine Color Yellow Urine Clarity Clear Urine pH 7.0 Ur Specific [place] 1.015 Urine Protein Negative Urine Glucose (UA) Normal Urine Ketones Negative Urine Blood Negative Urine Nitrite Negative Urine Bilirubin Negative Urine Urobilinogen Normal Ur Leukocyte Esterase Large H Urine Microscopic RBC 0-3 Urine Microscopic WBC 15-30 H Ur Squamous Epith Cells Many H Urine Bacteria Few Hyaline Casts None Seen Ur Culture Indicated? YES A - Impressions ITS Impressions Chest X-Ray 05/13/16 08:00 IMPRESSION: No acute cardiopulmonary process. D/ / 05/13/2016 09:05:52 Anna Zavaleta MD / [facility] Interpreting Provider: Anna Zavaleta MD Head CT 05/13/16 08:00 IMPRESSION: No acute intracranial abnormality. D/ / Kristen Nayak MD / Kristen Nayak MD Interpreting Provider: Kristen Nayak MD Assessment and Plan (1) Benzodiazepine withdrawal Current visit: Yes Status: Acute Plan: Close observation Risks, benefits, side effects, alternatives discussed w/pt: Yes (2) Bipolar 1 disorder Current visit: Yes Status: Chronic Plan: Continue hospitalization, Close observation, Suicide Precautions per unit protocol, Encourage participation in unit milieu, Group Therapy, Monitor sleep, Monitor appetite Risks, benefits, side effects, alternatives discussed w/pt: Yes (Continue medication adjustments) Patient agreeable to treatment: Yes Consult Discharge Plan - Plan Referrals: [facility] [Outside] - 05/18/16 10:00 am (The above appointment is with Cuong, psychiatric prescriber, on 05/25/2016 @ 4:00pm. You tamir also see Graham for counseling on 06/01/2016 @ 4:00pm.)
[2016-05-19] MEDS: Topiramate 100 MG TABLET PO SCH (08:00)
[2016-05-19] MEDS: hydrOXYzine pamoate 25 MG CAPSULE PO PRN ×2 (08:01→20:14)
[2016-05-19] MEDS: Folic Acid 1 MG TABLET PO SCH (08:01)
[2016-05-19] MEDS: Nicotine 21 MG PATCH.TD24 TD SCH (08:01)
[2016-05-19] MEDS: Thiamine (B-1) 100 MG TABLET PO SCH (08:01)
[2016-05-19] MEDS: Vitamin B Complex/Vit C/Vit E 1 EACH TABLET PO SCH (08:01)
--- NOTE | 2016-05-19 14:17 | Psychiatry Progress Note ---
Date of Encounter: 05/19/16 Time of Encounter: 13:35 Subjective Interval history: I asked the patient how she was feeling today. She told me "I am anxious about going home". I ask her why she was anxious about going home and she told me that things are managed better here and she had people to talk to all the time. She denied that there were any safety issues at home. She just understood that there is more of a support system here. In regards to the addition of the Seroquel low dose, that she is now taking in the morning in the mid-afternoon, she told me that it helped a great deal with her anxiety and agitation. She said that she took it with the Vistaril and together they did a very good job. She felt much better during the day, better able to function and no sedation. She stated she slept well last night. She is eating fine. Her depression and anxiety have lifted considerably, "its all much better". She stated she still had passive suicidal thoughts, but had no intention or desire to act on them. I asked her what helped when she had those infrequent thoughts, she stated that she went and talked to nursing or the recreational therapist and that helped. I asked her when she got home and had those thoughts what she would do, she stated that she would talk to her therapist outpatient or she would go to one of her children's homes, or to her friends and talk to them so she would not be alone. I discussed further her discharge plans being set for tomorrow, and her follow up appointments. She will be given a 30 day supply of medications. She said that she was ready to go and understood she was going and she would be fine. Review of Systems Psychiatric: Reports: depression, anxiety Objective: Exam Patient orientation: Yes Person, Yes Time, Yes Place Level of alertness: Alert Patient appearance: Appropriate, Well Groomed Behavior: cooperative Psychomotor activity: Normal (No hand tremor) Eye contact: Maintains Eye Contact Mood description: Anxious Affect description: congruent with mood, full range Speech pattern: Normal rate, Normal rhythm, Normal tone, Appropriate Speech volume: Normal Thought process: Linear, Goal Oriented Judgment: Good Insight: Partial (Improving) Results - Vital Signs Vital Signs: Temp Pulse Resp BP 98.6 F 81 16 102/71 05/19/16 09:00 05/19/16 09:00 05/19/16 09:00 05/19/16 09:00 - Labs Labs: Laboratory Results - last 24 hr 05/19/16 11:46 POC Glucose 100 H - Impressions ITS Impressions Chest X-Ray 05/13/16 08:00 IMPRESSION: No acute cardiopulmonary process. D/ / 05/13/2016 09:05:52 Anna Zavaleta MD / [facility] Interpreting Provider: Anna Zavaleta MD Head CT 05/13/16 08:00 IMPRESSION: No acute intracranial abnormality. D/ / Kristen Nayak MD / Kristen Nayak MD Interpreting Provider: Kristen Nayak MD Assessment and Plan (1) Benzodiazepine withdrawal Current visit: Yes Status: Acute Plan: Close observation Risks, benefits, side effects, alternatives discussed w/pt: Yes (2) Bipolar 1 disorder Current visit: Yes Status: Chronic Plan: Continue hospitalization, Close observation, Suicide Precautions per unit protocol, Encourage participation in unit milieu, Group Therapy, Monitor sleep, Monitor appetite Risks, benefits, side effects, alternatives discussed w/pt: Yes (Continue medication adjustments) Patient agreeable to treatment: Yes Consult Discharge Plan - Plan Referrals: [facility] [Outside] - 05/18/16 10:00 am (The above appointment is with Cuong psychiatric prescriber, on 05/25/2016 @ 4:00pm. You tamir also see Graham for counseling on 06/01/2016 @ 4:00pm.)
[2016-05-20] MEDS: hydrOXYzine pamoate 25 MG CAPSULE PO PRN ×2 (00:47→12:22)
[2016-05-20] MEDS: traZODone 50 MG TABLET PO PRN (00:47)
[2016-05-20] MEDS: Topiramate 100 MG TABLET PO SCH (08:28)
[2016-05-20] MEDS: Nicotine 21 MG PATCH.TD24 TD SCH (08:29)
[2016-05-20] MEDS: Vitamin B Complex/Vit C/Vit E 1 EACH TABLET PO SCH (08:29)
[2016-05-20] MEDS: Thiamine (B-1) 100 MG TABLET PO SCH (08:29)
[2016-05-20] MEDS: Folic Acid 1 MG TABLET PO SCH (08:29)
[2016-05-20 08:36] VITALS: BP 107/72
--- NOTE | 2016-05-20 11:22 | Discharge Summary ---
Date of Encounter: 05/20/16 Time of Encounter: 11:00 Diagnosis - Discharge Diagnosis (1) Benzodiazepine withdrawal Status: Acute Qualifiers: Complication of substance-induced condition: uncomplicated Qualified Code(s ): F13.230 - Sedative, hypnotic or anxiolytic dependence with withdrawal, uncomplicated (2) Bipolar 1 disorder Status: Chronic Medications - Discharge Medications Prescriptions: Quetiapine Fumarate [Seroquel] 25 mg PO 0800,1400 #60 tablet Quetiapine Fumarate [Seroquel] 600 mg PO HS #30 tablet Sertraline [Zoloft] 100 mg PO HS #30 tablet Levothyroxine [Synthroid] 150 mcg PO QAM 03/25/15 [History] SUMAtriptan Succinate [Imitrex] 6 mg SQ PRN PRN 12/21/15 [History] Albuterol Sulfate [Albuterol Inhaler] 2 puff IH [id number] PRN #0 inhaler 05/20/16 [Rx] HydrOXYzine Pamoate 25 mg PO TID PRN #0 capsule 05/20/16 [Rx] Prazosin [Minipress] 1 mg PO HS capsule 05/20/16 [Rx] Quetiapine Fumarate [Seroquel] 25 mg PO 0800,1400 #60 tablet 05/20/16 [Rx] Quetiapine Fumarate [Seroquel] 600 mg PO HS #30 tablet 05/20/16 [Rx] Sertraline [Zoloft] 100 mg PO HS #30 tablet 05/20/16 [Rx] Topiramate [Topamax] 200 mg PO DAILY tablet 05/20/16 [Rx] Allergies duloxetine [From Cymbalta] Allergy (Verified 03/25/15 22:16) Difficulty Breathing Hives moxifloxacin [From Avelox] Allergy (Verified 03/25/15 22:16) Hives Penicillins Allergy (Verified 03/25/15 22:16) Difficulty Breathing Hives Results Procedures and tests throughout hospitalization: Completed Lab Orders Category Date Time Status Complete Blood Count [HEME] AM 0400 Lab 05/13/16 04:29 Completed Comprehensive Metabolic Panel AM 0400 Lab 05/13/16 04:29 Completed Cortisol,Random AM 0400 Lab 05/13/16 04:29 Completed Prolactin AM 0400 Lab 05/13/16 04:29 Completed Thyroid [place] AM 0400 Lab 05/13/16 04:29 Completed UA w. reflex culture [Urinalysis Reflex Cult & Micro] [ Lab 05/17/16 16:25 Completed URIN] Routine Urinalysis Reflex Cult & Micro [URIN] AM 0400 Lab 05/13/16 04:00 Completed cpk [Creatine Kinase] AM 0400 Lab 05/13/16 04:29 Completed rapid urine drug screen [Drug Screen, Urine] [UCHEM] AM Lab 05/13/16 04:00 Completed 0400 Completed Imaging Orders Category Date Time Status CT head/brain wo con [CT] Routine Cat Scan 05/13/16 08:00 Completed CXR, PA/Lateral [XR chest 2V] [XR] Routine Exams 05/13/16 08:00 Completed Completed Microbiology Orders Category Date Time Status Culture,Urine [RM] Routine Lab 05/13/16 04:00 Completed Culture,Urine [RM] Routine Lab 05/17/16 16:25 Completed Provider Date of admission: 05/12/16 22:37 Primary care physician: PCP NO Consults: 05/13/16 09:00 Consult to Neurology [CONS] Routine Consulting Provider: [facility] Reason for Consult: MDD/bipolar disorder with suicidal ideation and attempt presents with history 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 Please evaluate and advise. Time Notified: 03:40 Call Completed: No 05/13/16 14:12 Consult to Interpret Exam [CONS] Routine Consulting Provider: Bill Rice Consult to Interpret Exam: Interpret EEG Discharging clinician: Jose Wade Assessment and Plan - Patient/Caregiver Discharge Instructions Activity: resume usual activities as tolerated Diet: regular diet - Follow up Plan Follow up with: [facility] [Outside] - 05/25/16 4:00 pm (The above appointment is with [facility] psychiatric prescriber. You tamir also see Graham for counseling on 06/01/2016 @ 4:00pm.) Functional capacity at discharge: independent ambulation Overall status at discharge: Stable Disposition: Home, Self-Care Hospital Course Hospital course: Ms. Pak is a 41 year old female states that she is a little anxious about going home but feels better and more stable. Her mood and thoughts have greatly improved from when she was admitted. She denies any side effects of medications, she denies any suicidal or homicidal ideation, she denies any auditory/visual hallucinations. She states that the low-dose Seroquel during the day is helped with her anxiety. She does not feel sedated and is able to function appropriately. She is not having any issues or problems being off the Klonopin and is through any potential withdrawal that she may have been having. She states the adjustments with her medications, with the increase in Seroquel, has helped her mood and be able to sleep at night. She states the Vistaril 25 mg helps too with anxiety during the day. But she will talk to her outpatient doctor in follow up if the dose needs to be increased. She is currently taking Topamax one time a day instead of 2 times a day and feels fine with that. She denies any safety issues at home. She states that if she has thoughts of wanting to hurt yourself again, she will talk to somebody in her family or go see her outpatient therapist for an appointment before it gets too bad. She feels calm and not depressed, and is therefore not suicidal. She will work with her therapist outpatient basis to develop better coping skills to deal with her depression and anxiety as issues in life come up. Time spent discussing smoking cessation with patient: 3 to 10 minutes Does patient wish to continue nicotine replacement upon disc: No - Time Spent with Patient Total time spent providing and/or coordinating discharge services: 20 min Less than 30 minutes Quality - Multiple Antipsychotics Patient discharged on 2 or more antipsychotic medications: No Procedures - Procedures Procedures: Medication Management, Crisis Stabilization, Supportive Therapy Mental Status Exam - Mental Status Exam Patient orientation: Yes Person, Yes Time, Yes Place Level of alertness: Alert Patient appearance: Appropriate, Well Groomed Behavior: calm, cooperative Psychomotor activity: Normal (No hand tremor) Eye contact: Maintains Eye Contact Mood description: Anxious (mild) Affect description: congruent with mood, full range Speech pattern: Normal rate, Normal rhythm, Normal tone, Appropriate Speech Volume: Normal Thought process: Linear, Goal Oriented Thought Content: Yes Intact Perceptual Disturbances: Yes Auditory hallucinations, No Visual hallucinations Judgment: Good Insight: Partial (Improving)
== END 2016-05-20 13:25 | disposition home or self-care (01) | DRG 776 ==
LOC: SUATTDRO 22:37 → 1ANU 22:37
PROVIDERS: ADMIT Psychiatry & Neurology Psychiatry; ATTEND Psychiatry & Neurology Psychiatry

== ENCOUNTER 2017-07-28 19:23 | Inpatient (IN) ==
--- NOTE | 2017-07-28 20:36 | Emergency Department Note ---
Disposition Clinical Impression: Suicidal ideation, Tardive dyskinesia UTI (urinary tract infection) Qualifiers: Urinary tract infection type: site unspecified Hematuria presence: without hematuria Qualified Code(s): N39.0 - Urinary tract infection, site not specified Hypothyroid Qualifiers: Hypothyroidism type: unspecified Qualified Code(s): E03.9 - Hypothyroidism, unspecified Disposition: Admitted As Inpatient Condition: Fair Time of Disposition: 04:59 Psych HPI - General Chief Complaint: ED General Medical Stated Complaint: Thyroid Issue Time Seen by Provider: 07/28/17 20:12 Source: patient, family Mode of arrival: ambulatory Limitations: no limitations Nursing Notes Reviewed: Yes Vital Signs Reviewed: Yes - History of Present Illness HPI Narrative: 42-year-old female history of tardive dyskinesia on multiple psychiatric medications with thyroid disease presents for evaluation of "thyroid tissue". Patient states that she was seen in by her family who is concerned about her thyroid. Patient states that she has been severely depressed since the loss of her mother. Patient states that she has been noncompliant with her psychiatric medications and verbalizes that she does wish to kill herself. Patient currently denies any overdose. Patient denies any fevers. Patient has multiple complaints stating that she has had intermittent headache as well as abdominal pain. Patient also states she has been constipated. Patient states she has been losing weight and has had a decreased appetite. Patient states she has not been on her thyroid medications for proximally for months. Denies any alcohol or drugs. - Related Data Home Medications Medication Instructions Recorded Confirmed Levothyroxine [Synthroid] 125 mcg PO QAM 03/25/15 07/29/17 SUMAtriptan Succinate [Imitrex] 6 mg SQ PRN PRN 12/21/15 05/13/16 Previous Rx's Medication Instructions Recorded Albuterol Sulfate [Albuterol 2 puff IH [id number] PRN #0 inhaler 05/20/16 Inhaler] Prazosin [Minipress] 1 mg PO HS capsule 05/20/16 Quetiapine Fumarate [Seroquel] 25 mg PO 0800,1400 #60 tablet 05/20/16 Quetiapine Fumarate [Seroquel] 600 mg PO HS #30 tablet 05/20/16 Sertraline [Zoloft] 100 mg PO HS #30 tablet 05/20/16 Topiramate [Topamax] 200 mg PO DAILY tablet 05/20/16 hydrOXYzine pamoate [HydrOXYzine 25 mg PO TID PRN #0 capsule 05/20/16 Pamoate] Divalproex (24 HR) [Depakote ER 250 mg PO BID #60 tab.er.24h 07/17/16 (24 HR)] cephALEXin [Keflex] 500 mg PO BID 5 Days #10 capsule 03/05/17 Cefuroxime PO [Ceftin] 250 mg PO Q12HR #14 tablet 04/28/17 metroNIDAZOLE [Flagyl] 500 mg PO BID #10 tablet 04/28/17 HYDROcodone/Acet 5/325 mg [[place] 1 tab PO Q6H PRN #12 tab 04/29/17 5-325 mg] metroNIDAZOLE [Flagyl] 500 mg PO TID #30 tablet 04/29/17 Ciprofloxacin HCl [Cipro] 500 mg PO BID #20 tablet 05/07/17 Ondansetron ODT [Zofran ODT] 4 mg SL Q6HR PRN #30 tab.rapdis 05/07/17 Tramadol HCl [Ultram] 50 mg PO TID PRN #10 tab 05/07/17 metroNIDAZOLE [Flagyl] 500 mg PO BID #20 tablet 05/07/17 Allergies Allergy/AdvReac Type Severity Reaction Status Date / Time duloxetine [From Cymbalta] Allergy Difficulty Verified 07/28/17 19:38 Breathing moxifloxacin [From Avelox] Allergy Hives Verified 07/28/17 19:38 Penicillins Allergy Difficulty Verified 07/28/17 19:38 Breathing All systems ED: reviewed and negative except as stated. Constitutional: Denies: fever Cardiovascular: Denies: chest pain Respiratory: Reports: cough. Denies: dyspnea Gastrointestinal: Reports: abdominal pain, constipation. Denies: nausea, vomiting Past Medical History - Past Medical History Source: patient Medical history: Reports: asthma, COPD, DVT, pulmonary embolus Surgical history: Reports: hysterectomy, other Psychiatric history: Reports: anxiety, bipolar, depression, PTSD, prior suicide attempt, previous psychiatric hospitalization BIOLOGY LECTURER history: Reports: no BIOLOGY LECTURER history, bilateral tubal ligation - Social History Smoking Status: Current every day smoker Smokeless Tobacco Status: No Alcohol use: Reports: none Drug use: Reports: none Physical Exam - General Limitations: no limitations General appearance: alert, in no apparent distress, appears intoxicated, anxious , other (Tarda dyskinesia with dyskinesia movements of all extremities) - Head Head exam: atraumatic, normocephalic, normal inspection - Eye Eye exam: Present: normal appearance, PERRL, EOMI. Absent: miosis, mydriasis - ENT ENT exam: normal exam - Neck Neck exam: Present: normal inspection - Chest Chest inspection: Present: normal inspection, symmetric chest wall rise - Respiratory Respiratory exam: Present: normal lung sounds bilaterally - Cardiovascular Cardiovascular exam: Present: regular rate, normal rhythm. Absent: systolic murmur - Abdominal Exam Abdominal exam: Present: soft - Extremities Exam Extremities exam: Present: normal inspection - Back Exam Back exam: Present: normal inspection - Neurological Exam Neurological exam: Present: alert, oriented X3, CN II-XII intact - Skin Skin exam: Present: warm Course - Reevaluation(s) Reevaluation #1: Patient's resting comfortably. No acute distress. Patient's urine does show signs of urinary tract infection however looking back at the [facility] if the patient has had negative urine cultures in the past. Patient will be started on antibiotics until a negative urine culture. Time: 22:01 Reevaluation #2: Ordered the patient home [facility]. Time: 03:02 Reevaluation #3: Patient seen and reevaluated. Patient's dystonic reactions appear to improve slightly from initial triage. Patient states that she has been having these rapid movements for over a year which appear to intermittently get worse at times. Patient states that she has been having a cough but her breathing is at baseline. Patient has a hoarse voice with a dry mouth and tongue because she has difficulty closing her mouth and her tongue is always moving. Patient can carry on a conversation at bedside. Patient does not appear to be in any acute respiratory distress. However given the fact that the patient has been complaining of a cold a chest x-ray will be ordered. Time: 03:30 Additional Reevaluation(s): 0 436: Patient's resting comfortably. No needs at this time. Awaiting psychiatry's evaluation. - Consultations Consultation #1: 1a Notified. Time: 23:06 Consultation #2: Psychiatry nurses have been at bedside evaluating the patient. There are concerns about the patient's breathing however the patient's breathing is at baseline. Do not feel that we are going to be able to ultimately control the patient's movement disorder as this is chronic for over a year. Time: 03:33 Consultation #3: [facility] stated they will admit the patient. Time: 04:55 Vital Signs Temperature 98.1 F 07/28/17 19:38 Pulse Rate 123 07/28/17 19:38 Respiratory Rate 16 07/28/17 19:38 Blood Pressure 129/51 07/28/17 19:38 O2 Sat by Pulse Oximetry 97 07/28/17 19:38 Temperature 98.1 F 07/28/17 19:38 Pulse Rate 100 07/29/17 03:05 Respiratory Rate 18 07/29/17 03:05 Blood Pressure 128/60 07/29/17 03:05 O2 Sat by Pulse Oximetry 97 07/29/17 03:05 Oxygen Delivery Oxygen Delivery Room Air Psych - MDM Narrative Medical decision making narrative: Patient presents with multiple complaints. Patient states that she has a known diagnosis of thyroid disease. Patient states he has not been taking her thyroid medication. Patient was given her prescribed thyroid medication after confirmation from pharmacy of most recent dosing. States she has been noncompliant with her psychiatric meds in the past as well. Patient verbalizes that she is depressed with multiple family issues. Patient states that she does not care to live states that sometimes she takes more medications than she needs. States that she has not been eating and has had significant weight loss. Patient denies any drugs or alcohol. There was several concerns the patient is suicidal given her degree depression with anorexia. Patient has also been verbally combative with family members over the phone. With the patient permission, daughter was updated on plan of care. Patient was also noted to have a possible urinary tract infection. Patient was given Macrobid. Patient does have baseline dyskinesias. Patient was given antihistamine after ensuring that her QTC was not prolonged. Patient would benefit from psychiatric evaluation. Patient is pink slipped as there is concerns for suicidality with direct verbalization per the patient of intention to kill her self. Also concerns the patient is not caring for herself with noncompliant medications with disregard for her current health. - Lab Data Result diagrams: 07/28/17 21:13 07/28/17 21:13 Lab Results 07/28/17 07/28/17 07/28/17 Range/Units 20:51 20:51 20:51 WBC (4.3-11.1) K/mcL RBC (3.82-4.97) M/mcL Hgb (11.5-15.4) g/dL Hct (35.3-44.9) % MCV (83.0-100.0) fL MCH (28.0-33.3) pg MCHC (31.6-35.5) g/dL RDW (11.5-14.5) % Plt Count (140-400) K/mcL MPV (9.4-12.4) fL Immature Gran % (0-4) % Seg Neutrophils % % Lymphocytes % % Monocytes % % Eosinophils % % Basophils % % Neutrophils # (1.6-8.9) K/mcL Lymphocytes # (0.6-4.6) K/mcL Monocytes # (0.0-1.3) K/mcL Eosinophils # (0.0-0.6) K/mcL Basophils # (0.0-0.2) K/mcL Sodium (136-145) mEq/L Potassium (3.5-5.1) mEq/L Chloride (98-107) mEq/L Carbon Dioxide (23-29) mEq/L BUN (6-20) mg/dL Creatinine (0.60-1.20) mg/dL Est GFR ( Amer) (> 60) Est GFR (Non-Af Amer) (> 60) BUN/Creatinine Ratio (6-26) Glucose (70-105) mg/dL Calculated Osmolality (280-300) Calcium (8.6-10.3) mg/dL Total Bilirubin (0.3-1.0) mg/dL Direct Bilirubin (0.0-0.2) mg/dL Indirect Bilirubin (0.0-1.2) mg/dL AST (13-39) Units/L ALT (7-52) Units/L Alkaline Phosphatase (34-104) Units/L Serum Total Protein (6.4-8.9) g/dL Albumin (3.5-5.7) g/dL Globulin (2.4-3.5) g/dL Albumin/Globulin Ratio (1.1-2.2) Lipase (11-82) Units/L TSH (0.340-5.600) mcIU/mL Free T4 (0.70-2.00) ng/dl Total T3 (0.87-1.78) ng/mL Ur Specimen Adequacy See below A Urine Color Yellow (Yellow) Urine Clarity Turbid A (Clear) Urine pH 6.0 (5.0-8.0) pH Units Ur Specific [place] 1.028 H (1.010-1.025) Urine Protein 30 H (Neg-Trace) mg/dL Urine Glucose (UA) Normal (Normal) mg/dL Urine Ketones Negative (Negative) mg/dL Urine Blood Moderate H (Negative) Urine Nitrite Negative (Negative) Urine Bilirubin Negative (Negative) Urine Urobilinogen Normal (Normal) mg/dL Ur Leukocyte Esterase Moderate H (Negative) Urine Microscopic RBC 0-3 (0-3) per hpf Urine Microscopic WBC TNTC H (0-3) per hpf Ur Squamous Epith Cells Many H (None-Few) per lpf Urine Bacteria Moderate H (None-Few) per hpf Hyaline Casts Test Not Performed Urine Yeast Test Not Performed Ur Culture Indicated? NO. (NO) Urine Test Negative (Negative) Salicylates (15.0-30.0) mg/dL Urine Opiates Screen Negative (Tbsrfl=084) ng/mL Acetaminophen (10-20) mcg/mL Ur Barbiturates Screen Negative (Toitnp=292) ng/mL Valproic Acid (50-100) mcg/mL Ur Phencyclidine Scrn Negative (Cutoff=25) ng/mL Ur Amphetamines Screen Negative (Pqbsdv=3735) ng/mL U Benzodiazepines Scrn Negative (Jxuztz=378) ng/mL Urine Cocaine Screen Negative (Cutoff= 300) ng/mL U Marijuana (THC) Screen Negative (Cutoff = 50) ng/mL Ethyl Alcohol (Less than 10) mg/dL 07/28/17 07/28/17 07/28/17 Range/Units 21:13 21:13 21:13 WBC 7.7 (4.3-11.1) K/mcL RBC 3.83 (3.82-4.97) M/mcL Hgb 11.6 (11.5-15.4) g/dL Hct 35.1 L (35.3-44.9) % MCV 91.6 (83.0-100.0) fL MCH 30.3 (28.0-33.3) pg MCHC 33.0 (31.6-35.5) g/dL RDW 13.1 (11.5-14.5) % Plt Count 210 (140-400) K/mcL MPV 8.9 L (9.4-12.4) fL Immature Gran % 0.4 (0-4) % Seg Neutrophils % 52.2 % Lymphocytes % 33.2 % Monocytes % 7.7 % Eosinophils % 5.6 % Basophils % 0.9 % Neutrophils # 4.0 (1.6-8.9) K/mcL Lymphocytes # 2.6 (0.6-4.6) K/mcL Monocytes # 0.6 (0.0-1.3) K/mcL Eosinophils # 0.4 (0.0-0.6) K/mcL Basophils # 0.1 (0.0-0.2) K/mcL Sodium 136 (136-145) mEq/L Potassium 3.5 (3.5-5.1) mEq/L Chloride 111 H (98-107) mEq/L Carbon Dioxide 26 (23-29) mEq/L BUN 13 (6-20) mg/dL Creatinine 0.86 (0.60-1.20) mg/dL Est GFR ( Amer) > 60 (> 60) Est GFR (Non-Af Amer) > 60 (> 60) BUN/Creatinine Ratio 15 (6-26) Glucose 105 (70-105) mg/dL Calculated Osmolality 282 (280-300) Calcium 8.9 (8.6-10.3) mg/dL Total Bilirubin 0.3 (0.3-1.0) mg/dL Direct Bilirubin 0.1 (0.0-0.2) mg/dL Indirect Bilirubin 0.2 (0.0-1.2) mg/dL AST 18 (13-39) Units/L ALT 12 (7-52) Units/L Alkaline Phosphatase 29 L (34-104) Units/L Serum Total Protein 6.4 (6.4-8.9) g/dL Albumin 3.8 (3.5-5.7) g/dL Globulin 2.6 (2.4-3.5) g/dL Albumin/Globulin Ratio 1.5 (1.1-2.2) Lipase 9 L (11-82) Units/L TSH 55.620 H (0.340-5.600) mcIU/mL Free T4 0.47 L (0.70-2.00) ng/dl Total T3 0.81 L (0.87-1.78) ng/mL Ur Specimen Adequacy Urine Color (Yellow) Urine Clarity (Clear) Urine pH (5.0-8.0) pH Units Ur Specific [place] (1.010-1.025) Urine Protein (Neg-Trace) mg/dL Urine Glucose (UA) (Normal) mg/dL Urine Ketones (Negative) mg/dL Urine Blood (Negative) Urine Nitrite (Negative) Urine Bilirubin (Negative) Urine Urobilinogen (Normal) mg/dL Ur Leukocyte Esterase (Negative) Urine Microscopic RBC (0-3) per hpf Urine Microscopic WBC (0-3) per hpf Ur Squamous Epith Cells (None-Few) per lpf Urine Bacteria (None-Few) per hpf Hyaline Casts Urine Yeast Ur Culture Indicated? (NO) Urine Test (Negative) Salicylates (15.0-30.0) mg/dL Urine Opiates Screen (Zpxwlz=219) ng/mL Acetaminophen (10-20) mcg/mL Ur Barbiturates Screen (Bssrop=461) ng/mL Valproic Acid (50-100) mcg/mL Ur Phencyclidine Scrn (Cutoff=25) ng/mL Ur Amphetamines Screen (Zbbkmj=9309) ng/mL U Benzodiazepines Scrn (Tgusnv=569) ng/mL Urine Cocaine Screen (Cutoff= 300) ng/mL U Marijuana (THC) Screen (Cutoff = 50) ng/mL Ethyl Alcohol (Less than 10) mg/dL 07/28/17 Range/Units 21:13 WBC (4.3-11.1) K/mcL RBC (3.82-4.97) M/mcL Hgb (11.5-15.4) g/dL Hct (35.3-44.9) % MCV (83.0-100.0) fL MCH (28.0-33.3) pg MCHC (31.6-35.5) g/dL RDW (11.5-14.5) % Plt Count (140-400) K/mcL MPV (9.4-12.4) fL Immature Gran % (0-4) % Seg Neutrophils % % Lymphocytes % % Monocytes % % Eosinophils % % Basophils % % Neutrophils # (1.6-8.9) K/mcL Lymphocytes # (0.6-4.6) K/mcL Monocytes # (0.0-1.3) K/mcL Eosinophils # (0.0-0.6) K/mcL Basophils # (0.0-0.2) K/mcL Sodium (136-145) mEq/L Potassium (3.5-5.1) mEq/L Chloride (98-107) mEq/L Carbon Dioxide (23-29) mEq/L BUN (6-20) mg/dL Creatinine (0.60-1.20) mg/dL Est GFR ( Amer) (> 60) Est GFR (Non-Af Amer) (> 60) BUN/Creatinine Ratio (6-26) Glucose (70-105) mg/dL Calculated Osmolality (280-300) Calcium (8.6-10.3) mg/dL Total Bilirubin (0.3-1.0) mg/dL Direct Bilirubin (0.0-0.2) mg/dL Indirect Bilirubin (0.0-1.2) mg/dL AST (13-39) Units/L ALT (7-52) Units/L Alkaline Phosphatase (34-104) Units/L Serum Total Protein (6.4-8.9) g/dL Albumin (3.5-5.7) g/dL Globulin (2.4-3.5) g/dL Albumin/Globulin Ratio (1.1-2.2) Lipase (11-82) Units/L TSH (0.340-5.600) mcIU/mL Free T4 (0.70-2.00) ng/dl Total T3 (0.87-1.78) ng/mL Ur Specimen Adequacy Urine Color (Yellow) Urine Clarity (Clear) Urine pH (5.0-8.0) pH Units Ur Specific [place] (1.010-1.025) Urine Protein (Neg-Trace) mg/dL Urine Glucose (UA) (Normal) mg/dL Urine Ketones (Negative) mg/dL Urine Blood (Negative) Urine Nitrite (Negative) Urine Bilirubin (Negative) Urine Urobilinogen (Normal) mg/dL Ur Leukocyte Esterase (Negative) Urine Microscopic RBC (0-3) per hpf Urine Microscopic WBC (0-3) per hpf Ur Squamous Epith Cells (None-Few) per lpf Urine Bacteria (None-Few) per hpf Hyaline Casts Urine Yeast Ur Culture Indicated? (NO) Urine Test (Negative) Salicylates < 2.5 L (15.0-30.0) mg/dL Urine Opiates Screen (Nmajek=084) ng/mL Acetaminophen < 10 L (10-20) mcg/mL Ur Barbiturates Screen (Eaeywd=142) ng/mL Valproic Acid < 4 L (50-100) mcg/mL Ur Phencyclidine Scrn (Cutoff=25) ng/mL Ur Amphetamines Screen (Epsbgp=5101) ng/mL U Benzodiazepines Scrn (Vukonh=482) ng/mL Urine Cocaine Screen (Cutoff= 300) ng/mL U Marijuana (THC) Screen (Cutoff = 50) ng/mL Ethyl Alcohol < 10 (Less than 10) mg/dL - Radiology Data Radiology results reviewed: Yes I reviewed the patient's radiology results. Chest X-Ray 07/29/17 03:28 IMPRESSION: No pneumonia or any other acute cardiopulmonary abnormality. D/ / Dragan Pedersen / Dragan Pedersen Interpreting Provider: Dragan Pedersen - EKG Data EKG attestation: Yes I reviewed and interpreted this EKG. 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) DVT prophylaxis (Acute) Factor 5 Leiden mutation, heterozygous (Chronic) Pulmonary embolus (Acute) Bipolar 1 disorder (Chronic) Abdominal pain (Inactive) Abdominal pain (Inactive) Bacterial vaginitis (Inactive) Colitis (Inactive) Colitis (Inactive) Constipation (Inactive) Tardive dyskinesia (Inactive) Tremor of hands and face (Inactive) UTI (urinary tract infection) (Inactive) Urinary tract infection (Inactive) No Social History Section defined Any abnormal vital signs prior to transfer?: No Current Vitals: Last Vital Signs Temp 98.1 F 07/28/17 19:38 Pulse 100 07/29/17 03:05 Resp 18 07/29/17 03:05 BP 128/60 07/29/17 03:05 Pulse Ox 97 07/29/17 03:05 Is the patient intoxicated or cognitively impaired?: No Psychiatric Lab Panel: Drug Levels and Toxicity 07/28/17 07/28/17 20:51 21:13 Urine Opiates Screen Negative Acetaminophen < 10 L Ur Barbiturates Screen Negative Ur Phencyclidine Scrn Negative Ur Amphetamines Screen Negative U Benzodiazepines Scrn Negative Urine Cocaine Screen Negative U Marijuana (THC) Screen Negative Ethyl Alcohol < 10 Any abnormalities on the physical exam?: No Any abnormal labs?: No Abnormal Labs: Abnormal lab results Hct 35.1 % (35.3-44.9) L 07/28/17 21:13 MPV 8.9 fL (9.4-12.4) L 07/28/17 21:13 Chloride 111 mEq/L (98-107) H 07/28/17 21:13 Alkaline Phosphatase 29 Units/L (34-104) L 07/28/17 21:13 Lipase 9 Units/L (11-82) L 07/28/17 21:13 TSH 55.620 mcIU/mL (0.340-5.600) H 07/28/17 21:13 Free T4 0.47 ng/dl (0.70-2.00) L 07/28/17 21:13 Total T3 0.81 ng/mL (0.87-1.78) L 07/28/17 21:13 Ur Specimen Adequacy See below A 07/28/17 20:51 Urine Clarity Turbid (Clear) A 07/28/17 20:51 Ur Specific [place] 1.028 (1.010-1.025) H 07/28/17 20:51 Urine Protein 30 mg/dL (Neg-Trace) H 07/28/17 20:51 Urine Blood Moderate (Negative) H 07/28/17 20:51 Ur Leukocyte Esterase Moderate (Negative) H 07/28/17 20:51 Urine Microscopic WBC TNTC per hpf (0-3) H 07/28/17 20:51 Ur Squamous Epith Cells Many per lpf (None-Few) H 07/28/17 20:51 Urine Bacteria Moderate per hpf (None-Few) H 07/28/17 20:51 Salicylates < 2.5 mg/dL (15.0-30.0) L 07/28/17 21:13 Acetaminophen < 10 mcg/mL (10-20) L 07/28/17 21:13 Valproic Acid < 4 mcg/mL (50-100) L 07/28/17 21:13 Does the patient require durable medical equiptment?: No Is the patient ambulatory?: No Is the patient a fall risk?: No Has the patient been medically cleared?: Yes Any acute medical condition require Tx prior to transfer?: No S.B.A.R. - S.B.A.R. Situation: Demographics Background: Presenting Complaint Assessment: Vital Signs, Course and respsone to treatment, Patient/Family Expectation Recommendation: Barrier(s) to disposition, Recommendation based on pending studies, treatments, or consults S.B.A.R. Report Given to: 1A
[2017-07-28 21:04] LABS: Bilirubin,Urine Negative (Negative); Blood,Urine Moderate (Negative); Clarity,Urine Turbid (Clear); Color,Urine Yellow (Yellow); Glucose,Urine (UA) Normal (Normal); Ketones,Urine Negative (Negative); Leukocyte Esterase,Urine Moderate (Negative); Nitrite,Urine Negative (Negative); Protein,Urine 30 mg/dL (Neg-Trace); Specific Gravity,Urine 1.028 (1.010-1.025); Urobilinogen,Urine Normal (Normal)
[2017-07-28 21:06] LABS: Bacteria,Urine Moderate per hpf (None-Few); RBC,Urine 0-3 per hpf (0-3); Squamous Epithelial Cell,Urine Many per lpf (None-Few); WBC,Urine TNTC per hpf (0-3)
--- NOTE | 2017-07-28 21:12 | Emergency Department Note ---
Disposition Clinical Impression: Suicidal ideation, Tardive dyskinesia UTI (urinary tract infection) Qualifiers: Urinary tract infection type: site unspecified Hematuria presence: without hematuria Qualified Code(s): N39.0 - Urinary tract infection, site not specified Hypothyroid Qualifiers: Hypothyroidism type: unspecified Qualified Code(s): E03.9 - Hypothyroidism, unspecified Disposition: Admitted As Inpatient Condition: Fair Referrals: Edelmira Mann CNP [Primary Care Provider] - General Adult HPI - General Chief complaint: ED General Medical Stated complaint: Thyroid Issue Time Seen by Provider: 07/28/17 20:12 Source: patient, family Mode of arrival: ambulatory Limitations: no limitations - History of Present Illness Pain Scale: 7 - Related Data Home Medications Medication Instructions Recorded Confirmed Levothyroxine [Synthroid] 125 mcg PO QAM 03/25/15 07/29/17 SUMAtriptan Succinate [Imitrex] 6 mg SQ PRN PRN 12/21/15 05/13/16 Previous Rx's Medication Instructions Recorded Albuterol Sulfate [Albuterol 2 puff IH [id number] PRN #0 inhaler 05/20/16 Inhaler] Prazosin [Minipress] 1 mg PO HS capsule 05/20/16 Quetiapine Fumarate [Seroquel] 25 mg PO 0800,1400 #60 tablet 05/20/16 Quetiapine Fumarate [Seroquel] 600 mg PO HS #30 tablet 05/20/16 Sertraline [Zoloft] 100 mg PO HS #30 tablet 05/20/16 Topiramate [Topamax] 200 mg PO DAILY tablet 05/20/16 hydrOXYzine pamoate [HydrOXYzine 25 mg PO TID PRN #0 capsule 05/20/16 Pamoate] Divalproex (24 HR) [Depakote ER 250 mg PO BID #60 tab.er.24h 07/17/16 (24 HR)] cephALEXin [Keflex] 500 mg PO BID 5 Days #10 capsule 03/05/17 Cefuroxime PO [Ceftin] 250 mg PO Q12HR #14 tablet 04/28/17 metroNIDAZOLE [Flagyl] 500 mg PO BID #10 tablet 04/28/17 HYDROcodone/Acet 5/325 mg [[place] 1 tab PO Q6H PRN #12 tab 04/29/17 5-325 mg] metroNIDAZOLE [Flagyl] 500 mg PO TID #30 tablet 04/29/17 Ciprofloxacin HCl [Cipro] 500 mg PO BID #20 tablet 05/07/17 Ondansetron ODT [Zofran ODT] 4 mg SL Q6HR PRN #30 tab.rapdis 05/07/17 Tramadol HCl [Ultram] 50 mg PO TID PRN #10 tab 05/07/17 metroNIDAZOLE [Flagyl] 500 mg PO BID #20 tablet 05/07/17 Allergies Allergy/AdvReac Type Severity Reaction Status Date / Time duloxetine [From Cymbalta] Allergy Difficulty Verified 07/28/17 19:38 Breathing moxifloxacin [From Avelox] Allergy Hives Verified 07/28/17 19:38 Penicillins Allergy Difficulty Verified 07/28/17 19:38 Breathing Constitutional: Denies: fever Cardiovascular: Denies: chest pain Respiratory: Reports: cough. Denies: dyspnea Gastrointestinal: Reports: abdominal pain, constipation. Denies: nausea, vomiting Past Medical History - Past Medical History Medical history: Reports: asthma, COPD, DVT, pulmonary embolus Surgical history: Reports: hysterectomy, other Psychiatric history: Reports: anxiety, bipolar, depression, PTSD, prior suicide attempt, previous psychiatric hospitalization CUT OUT STITCHER history: Reports: no CUT OUT STITCHER history, bilateral tubal ligation - Social History Smoking Status: Current every day smoker Smokeless Tobacco Status: No Alcohol use: Reports: none Drug use: Reports: none Physical Exam - General Limitations: no limitations General appearance: alert, in no apparent distress, appears intoxicated, anxious , other (Tarda dyskinesia) Course Vital Signs Temperature 98.1 F 07/28/17 19:38 Pulse Rate 123 07/28/17 19:38 Respiratory Rate 16 07/28/17 19:38 Blood Pressure 129/51 07/28/17 19:38 O2 Sat by Pulse Oximetry 97 07/28/17 19:38 Temperature 98.1 F 07/28/17 19:38 Pulse Rate 100 07/29/17 03:05 Respiratory Rate 18 07/29/17 03:05 Blood Pressure 128/60 07/29/17 03:05 O2 Sat by Pulse Oximetry 97 07/29/17 03:05 Oxygen Delivery Oxygen Delivery Room Air Medical Decision Making - Lab Data Result diagrams: 07/28/17 21:13 07/28/17 21:13 Lab Results 07/28/17 07/28/17 07/28/17 Range/Units 20:51 20:51 20:51 WBC (4.3-11.1) K/mcL RBC (3.82-4.97) M/mcL Hgb (11.5-15.4) g/dL Hct (35.3-44.9) % MCV (83.0-100.0) fL MCH (28.0-33.3) pg MCHC (31.6-35.5) g/dL RDW (11.5-14.5) % Plt Count (140-400) K/mcL MPV (9.4-12.4) fL Immature Gran % (0-4) % Seg Neutrophils % % Lymphocytes % % Monocytes % % Eosinophils % % Basophils % % Neutrophils # (1.6-8.9) K/mcL Lymphocytes # (0.6-4.6) K/mcL Monocytes # (0.0-1.3) K/mcL Eosinophils # (0.0-0.6) K/mcL Basophils # (0.0-0.2) K/mcL Sodium (136-145) mEq/L Potassium (3.5-5.1) mEq/L Chloride (98-107) mEq/L Carbon Dioxide (23-29) mEq/L BUN (6-20) mg/dL Creatinine (0.60-1.20) mg/dL Est GFR ( Amer) (> 60) Est GFR (Non-Af Amer) (> 60) BUN/Creatinine Ratio (6-26) Glucose (70-105) mg/dL Calculated Osmolality (280-300) Calcium (8.6-10.3) mg/dL Total Bilirubin (0.3-1.0) mg/dL Direct Bilirubin (0.0-0.2) mg/dL Indirect Bilirubin (0.0-1.2) mg/dL AST (13-39) Units/L ALT (7-52) Units/L Alkaline Phosphatase (34-104) Units/L Serum Total Protein (6.4-8.9) g/dL Albumin (3.5-5.7) g/dL Globulin (2.4-3.5) g/dL Albumin/Globulin Ratio (1.1-2.2) Lipase (11-82) Units/L TSH (0.340-5.600) mcIU/mL Free T4 (0.70-2.00) ng/dl Total T3 (0.87-1.78) ng/mL Ur Specimen Adequacy See below A Urine Color Yellow (Yellow) Urine Clarity Turbid A (Clear) Urine pH 6.0 (5.0-8.0) pH Units Ur Specific [place] 1.028 H (1.010-1.025) Urine Protein 30 H (Neg-Trace) mg/dL Urine Glucose (UA) Normal (Normal) mg/dL Urine Ketones Negative (Negative) mg/dL Urine Blood Moderate H (Negative) Urine Nitrite Negative (Negative) Urine Bilirubin Negative (Negative) Urine Urobilinogen Normal (Normal) mg/dL Ur Leukocyte Esterase Moderate H (Negative) Urine Microscopic RBC 0-3 (0-3) per hpf Urine Microscopic WBC TNTC H (0-3) per hpf Ur Squamous Epith Cells Many H (None-Few) per lpf Urine Bacteria Moderate H (None-Few) per hpf Hyaline Casts Test Not Performed Urine Yeast Test Not Performed Ur Culture Indicated? NO. (NO) Urine Test Negative (Negative) Salicylates (15.0-30.0) mg/dL Urine Opiates Screen Negative (Ctyjje=265) ng/mL Acetaminophen (10-20) mcg/mL Ur Barbiturates Screen Negative (Icyrtj=564) ng/mL Valproic Acid (50-100) mcg/mL Ur Phencyclidine Scrn Negative (Cutoff=25) ng/mL Ur Amphetamines Screen Negative (Bdlsed=1964) ng/mL U Benzodiazepines Scrn Negative (Ixtjpz=348) ng/mL Urine Cocaine Screen Negative (Cutoff= 300) ng/mL U Marijuana (THC) Screen Negative (Cutoff = 50) ng/mL Ethyl Alcohol (Less than 10) mg/dL 07/28/17 07/28/17 07/28/17 Range/Units 21:13 21:13 21:13 WBC 7.7 (4.3-11.1) K/mcL RBC 3.83 (3.82-4.97) M/mcL Hgb 11.6 (11.5-15.4) g/dL Hct 35.1 L (35.3-44.9) % MCV 91.6 (83.0-100.0) fL MCH 30.3 (28.0-33.3) pg MCHC 33.0 (31.6-35.5) g/dL RDW 13.1 (11.5-14.5) % Plt Count 210 (140-400) K/mcL MPV 8.9 L (9.4-12.4) fL Immature Gran % 0.4 (0-4) % Seg Neutrophils % 52.2 % Lymphocytes % 33.2 % Monocytes % 7.7 % Eosinophils % 5.6 % Basophils % 0.9 % Neutrophils # 4.0 (1.6-8.9) K/mcL Lymphocytes # 2.6 (0.6-4.6) K/mcL Monocytes # 0.6 (0.0-1.3) K/mcL Eosinophils # 0.4 (0.0-0.6) K/mcL Basophils # 0.1 (0.0-0.2) K/mcL Sodium 136 (136-145) mEq/L Potassium 3.5 (3.5-5.1) mEq/L Chloride 111 H (98-107) mEq/L Carbon Dioxide 26 (23-29) mEq/L BUN 13 (6-20) mg/dL Creatinine 0.86 (0.60-1.20) mg/dL Est GFR ( Amer) > 60 (> 60) Est GFR (Non-Af Amer) > 60 (> 60) BUN/Creatinine Ratio 15 (6-26) Glucose 105 (70-105) mg/dL Calculated Osmolality 282 (280-300) Calcium 8.9 (8.6-10.3) mg/dL Total Bilirubin 0.3 (0.3-1.0) mg/dL Direct Bilirubin 0.1 (0.0-0.2) mg/dL Indirect Bilirubin 0.2 (0.0-1.2) mg/dL AST 18 (13-39) Units/L ALT 12 (7-52) Units/L Alkaline Phosphatase 29 L (34-104) Units/L Serum Total Protein 6.4 (6.4-8.9) g/dL Albumin 3.8 (3.5-5.7) g/dL Globulin 2.6 (2.4-3.5) g/dL Albumin/Globulin Ratio 1.5 (1.1-2.2) Lipase 9 L (11-82) Units/L TSH 55.620 H (0.340-5.600) mcIU/mL Free T4 0.47 L (0.70-2.00) ng/dl Total T3 0.81 L (0.87-1.78) ng/mL Ur Specimen Adequacy Urine Color (Yellow) Urine Clarity (Clear) Urine pH (5.0-8.0) pH Units Ur Specific [place] (1.010-1.025) Urine Protein (Neg-Trace) mg/dL Urine Glucose (UA) (Normal) mg/dL Urine Ketones (Negative) mg/dL Urine Blood (Negative) Urine Nitrite (Negative) Urine Bilirubin (Negative) Urine Urobilinogen (Normal) mg/dL Ur Leukocyte Esterase (Negative) Urine Microscopic RBC (0-3) per hpf Urine Microscopic WBC (0-3) per hpf Ur Squamous Epith Cells (None-Few) per lpf Urine Bacteria (None-Few) per hpf Hyaline Casts Urine Yeast Ur Culture Indicated? (NO) Urine Test (Negative) Salicylates (15.0-30.0) mg/dL Urine Opiates Screen (Grrpcd=860) ng/mL Acetaminophen (10-20) mcg/mL Ur Barbiturates Screen (Gcokem=889) ng/mL Valproic Acid (50-100) mcg/mL Ur Phencyclidine Scrn (Cutoff=25) ng/mL Ur Amphetamines Screen (Crwuir=9274) ng/mL U Benzodiazepines Scrn (Gqkgel=860) ng/mL Urine Cocaine Screen (Cutoff= 300) ng/mL U Marijuana (THC) Screen (Cutoff = 50) ng/mL Ethyl Alcohol (Less than 10) mg/dL 07/28/17 Range/Units 21:13 WBC (4.3-11.1) K/mcL RBC (3.82-4.97) M/mcL Hgb (11.5-15.4) g/dL Hct (35.3-44.9) % MCV (83.0-100.0) fL MCH (28.0-33.3) pg MCHC (31.6-35.5) g/dL RDW (11.5-14.5) % Plt Count (140-400) K/mcL MPV (9.4-12.4) fL Immature Gran % (0-4) % Seg Neutrophils % % Lymphocytes % % Monocytes % % Eosinophils % % Basophils % % Neutrophils # (1.6-8.9) K/mcL Lymphocytes # (0.6-4.6) K/mcL Monocytes # (0.0-1.3) K/mcL Eosinophils # (0.0-0.6) K/mcL Basophils # (0.0-0.2) K/mcL Sodium (136-145) mEq/L Potassium (3.5-5.1) mEq/L Chloride (98-107) mEq/L Carbon Dioxide (23-29) mEq/L BUN (6-20) mg/dL Creatinine (0.60-1.20) mg/dL Est GFR ( Amer) (> 60) Est GFR (Non-Af Amer) (> 60) BUN/Creatinine Ratio (6-26) Glucose (70-105) mg/dL Calculated Osmolality (280-300) Calcium (8.6-10.3) mg/dL Total Bilirubin (0.3-1.0) mg/dL Direct Bilirubin (0.0-0.2) mg/dL Indirect Bilirubin (0.0-1.2) mg/dL AST (13-39) Units/L ALT (7-52) Units/L Alkaline Phosphatase (34-104) Units/L Serum Total Protein (6.4-8.9) g/dL Albumin (3.5-5.7) g/dL Globulin (2.4-3.5) g/dL Albumin/Globulin Ratio (1.1-2.2) Lipase (11-82) Units/L TSH (0.340-5.600) mcIU/mL Free T4 (0.70-2.00) ng/dl Total T3 (0.87-1.78) ng/mL Ur Specimen Adequacy Urine Color (Yellow) Urine Clarity (Clear) Urine pH (5.0-8.0) pH Units Ur Specific [place] (1.010-1.025) Urine Protein (Neg-Trace) mg/dL Urine Glucose (UA) (Normal) mg/dL Urine Ketones (Negative) mg/dL Urine Blood (Negative) Urine Nitrite (Negative) Urine Bilirubin (Negative) Urine Urobilinogen (Normal) mg/dL Ur Leukocyte Esterase (Negative) Urine Microscopic RBC (0-3) per hpf Urine Microscopic WBC (0-3) per hpf Ur Squamous Epith Cells (None-Few) per lpf Urine Bacteria (None-Few) per hpf Hyaline Casts Urine Yeast Ur Culture Indicated? (NO) Urine Test (Negative) Salicylates < 2.5 L (15.0-30.0) mg/dL Urine Opiates Screen (Ftevsz=117) ng/mL Acetaminophen < 10 L (10-20) mcg/mL Ur Barbiturates Screen (Qtauyx=231) ng/mL Valproic Acid < 4 L (50-100) mcg/mL Ur Phencyclidine Scrn (Cutoff=25) ng/mL Ur Amphetamines Screen (Pvmuto=3458) ng/mL U Benzodiazepines Scrn (Qnynuc=361) ng/mL Urine Cocaine Screen (Cutoff= 300) ng/mL U Marijuana (THC) Screen (Cutoff = 50) ng/mL Ethyl Alcohol < 10 (Less than 10) mg/dL Attestation Statement - Attestation Attestation: I examined this patient and my medical decision-making was reviewed with the Resident Physician. I agree with the documented findings, disposition and treatment plan as described except to the extent set forth below. Patient to the ED with a chief complaint of suicidal ideation. Depression. Noncompliance with her psychiatric meds. Patient states her family was concerned about her thyroid. Patient has a history of antipsychotic medications causing dystonic reaction. On examination patient is anxious. Difficulty sitting still. Lungs clear. Plan. Medical clearance and evaluation by 1A. Patient with elevated TSH. T3 and T4 pending. T3 and T4 low. Consistent with hypothyroidism that she has diagnosed with but does not take her meds.
[2017-07-28 21:14] LABS: Amphetamine Screen,Urine Negative ng/mL (Cutoff=1000); Barbiturate Screen,Urine Negative ng/mL (Cutoff=200); Benzodiazepines Screen,Urine Negative ng/mL (Cutoff=200); Cannabinoid Screen,Urine Negative ng/mL (Cutoff = 50); Cocaine Screen,Urine Negative ng/mL (Cutoff= 300); Opiate Screen,Urine Negative ng/mL (Cutoff=300); Phencyclidine Screen,Urine Negative ng/mL (Cutoff=25)
[2017-07-28 21:35] LABS: Basophils # 0.1 K/mcL (0.0-0.2); Basophils % 0.9 %; Eosinophils # 0.4 K/mcL (0.0-0.6); Eosinophils % 5.6 %; Hematocrit 35.1 % (35.3-44.9); Hemoglobin 11.6 g/dL (11.5-15.4); Immature Granulocytes % 0.4 % (0-4); Lymphocytes # 2.6 K/mcL (0.6-4.6); Lymphocytes % 33.2 %; Mean Corpuscular Hemoglobin 30.3 pg (28.0-33.3); Mean Corpuscular Volume 91.6 fL (83.0-100.0); Mean Platelet Volume 8.9 fL (9.4-12.4); Monocytes # 0.6 K/mcL (0.0-1.3); Monocytes % 7.7 %; Platelet Count 210 K/mcL (140-400); Red Blood Count 3.83 M/mcL (3.82-4.97); Red Cell Distribution Width 13.1 % (11.5-14.5); Segmented Neutrophils % 52.2 %
[2017-07-28 22:00] LABS: Acetaminophen < 10 mcg/mL (10-20); Ethanol < 10 mg/dL (Less than 10); Salicylate < 2.5 mg/dL (15.0-30.0)
[2017-07-28] MEDS ORDERED: Nitrofurantoin (BID) 100 MG CAPSULE PO ONE (22:00)
[2017-07-28 22:02] LABS: Alanine Aminotransferase 12 Units/L (7-52); Albumin 3.8 g/dL (3.5-5.7); Albumin/Globulin Ratio 1.5 (1.1-2.2); Alkaline Phosphatase 29 Units/L (34-104); Aspartate Amino Transferase 18 Units/L (13-39); BUN/Creatinine Ratio 15 (6-26); Bilirubin,Direct 0.1 mg/dL (0.0-0.2); Bilirubin,Indirect 0.2 mg/dL (0.0-1.2); Bilirubin,Total 0.3 mg/dL (0.3-1.0); Blood Urea Nitrogen 13 mg/dL (6-20); Calcium 8.9 mg/dL (8.6-10.3); Carbon Dioxide 26 mEq/L (23-29); Chloride 111 mEq/L (98-107); Globulin 2.6 g/dL (2.4-3.5); Glucose 105 mg/dL (70-105); Lipase 9 Units/L (11-82); Osmolality,Calculated 282 (280-300); Potassium 3.5 mEq/L (3.5-5.1); Sodium 136 mEq/L (136-145); Total Protein 6.4 g/dL (6.4-8.9); eGFR For African Americans > 60 (> 60); eGFR For Non-African Americans > 60 (> 60)
[2017-07-28 22:45] LABS: Thyroid Stimulating Hormone 55.62 mcIU/mL (0.340-5.600)
[2017-07-28 22:58] LABS: Valproate < 4 mcg/mL (50-100)
[2017-07-29 00:02] LABS: Triiodothyronine (T3) Total 0.81 ng/mL (0.87-1.78)
[2017-07-29] MEDS ORDERED: diazePAM 5 MG TABLET PO ONE (04:54)
[2017-07-29] MEDS ORDERED: Mag Hydrox/Al Hydrox/Simeth 30 ML UDC PO PRN (06:25)
--- NOTE | 2017-07-29 14:30 | Psychiatry History & Physical ---
Date of Encounter: 07/29/17 Time of Encounter: 14:00 History of Present Illness Patient Stated Chief Complaint: I came in for my thyroid, I could by starving myself Medicare Admission Attestation: For traditional Medicare patients the provided hospital inpatient services are reasonable and necessary and in the case of services not specified as inpatient -only under 42 CFR 419.22 (n), that they are appropriately provided as inpatient services in accordance 42 CFR 412.3. For Critical Access Hospital the patient may reasonably be expected to be discharged or transferred to a hospital within 96 hours after admission to the Critical Access Hospital. Admitted From: Emergency Dept Plans for Post Hospital Care: Home History of Present Illness: Ms. Pak is a 42 year old female The patient is a 42-year-old white female who was admitted through the ER. I came for my thyroid. History of present illness: The patient has 3 kids and one step. Her and 2 grandsons that she has been worried about. For the past 4 months the patient has not taking her thyroid medicine. This is in strategy to stop eating and 10 not lose weight. The patient had her thyroid checked and was told that the TSH is normally at 3.7 but hers was at 47. She was told that she needed to start her thyroid medicine back. The patient reports multiple stressors over the past year. Her father her [id number] in 1 week ago her mother . The patient has anorexia nervosa primarily of the restrictor type. She denies binging purging or the use of laxatives in the recent past. The patient has low self-esteem low mood diminished interest guilt ruminations somatic concern decreased energy poor concentration poor memory weight loss and decreased sleep. Patient's ideal body weight she says is 100 pounds and she is 104. patient needs no meals and snacks throughout the day. the patient has a long history of anorexia nervosa and psychiatric disorder. the patient has a history of p [place], psychogenic nonepileptic form seizure activity. With an EEG being read as normal. The patient was told that the seizures were brought on by stress. The patient was last hospitalized in this hospital in 2017. She was discharged on the same medicines that she is on now. However this also included Haldol 10 mg twice a day. She has been on Haldol 10 mg twice a day for many years. Her psychiatric hospitalization records go back bout 20 years and involved multiple institutions. There is referred other documents for complete list. Within this period of time and since the most recent neurologic consultation the patient is developed tardive dyskinesia. Dr. Hutchins at [facility] prescribed Cogentin in increasing doses to try and treat this. The tardive dyskinesia socially disabling affecting breathing affecting movement and the patient was interviewed today in a hospital bed in the quiet room. 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 The patient had a counselor AMIN who she has not seen in quite a while. Past medical history: The patient reports multiple surgeries including hysterectomy. Illnesses the patient reports migraine headaches and has used Imitrex IM to help. Allergies include Cymbalta, moxifloxacin, penicillin and call her at all. Family history significant for sister was nervous breakdown patient's mother was reported to have OCD maternal grandmother may have had psychiatric disorder. There is no history of suicide patient's father might affect problems. Social history the patient been for 25 years. She completed 10th grade but did not work she attained [employer]. She is currently from her and she lives with her best friend and her best friend's son. The patient reports no use of drugs or alcohol. She reports no legal problems. Review of systems: The patient has blurry vision she has looked for her glasses. The patient wears dentures but these are not fitting well recently. She reports no trouble with hearing. The patient has shortness of breath this is a tightness in the chest but also a dyskinetic breathing. Associated with the TD. She has stomach pains at times she has not had a bowel movement several days. She has been on multiple laxatives in the past she reports that she has heart murmur. She reports that her joints are sore. She reports that she has balance problems. The patient has had the emergence of the movement disorders on Haldol 20 mg twice a day. She has not been treated with ginkgo biloba, vitamin E or. Pyridoxine. She has been taking melatonin 10 mg daily at bedtime for sleep. She has not been treated with i=Ingrezza, Austedo or Xenaxine or Amantadine. Formulation. This patient presents with severe TD. The movements if assessed on aims would be greater than 30. Consequently will begin some of the non-FDA approved treatments and will pursue FDA approved treatment. Limiting or avoiding anticholinergic agents may be helpful as they may worsen TD. The question becomes tenderness patient be managed with out and I psychotics. Given the long psychiatric history and ongoing psychiatric issues and the treatment refractory nature of her depression is necessary to continue antipsychotics. Seroquel is a second generation antipsychotic and associated with a lower overall risk for TD. Haldol is been placed as an allergy but it in first generation antipsychotics should be avoided unless the objective is to suppress TD like movements Past Med Surg Social Fam HX - Past Medical History Source: patient, old records reviewed Medical history: asthma, COPD, DVT, pulmonary embolus, seizures, thyroid disease - Past Psychiatric History Psychiatric history: Reports: depression, previous psychiatric hospitalization, other Family psychiatric history: Yes Family History of Suicide: None - Past Surgical History Surgical History: hysterectomy, other - Social History Smoking Status: Smoker, status unknown Smokeless Tobacco Status: No Alcohol use: none Drug use: none Occupational status: disabled Current living situation: Home - Independent Activity Level: Independent ambulation Recent Out of Country Travel Within the Last 8 Weeks: No Exposure or Possible Exposure to Illness During Travel: No - Family History Mother Living Status: Still Living Hx Family Respiratory Disorders: Yes (lung cancer) Father Living Status: Hx Family Respiratory Disorders: Yes (lung cancer) Medications & Allergies Levothyroxine [Synthroid] 125 mcg PO QAM 03/25/15 [History] Sertraline [Zoloft] 100 mg PO HS #30 tablet 05/20/16 [Rx] Benztropine Mesylate 2 mg PO TID 07/29/17 [History] Ezetimibe [Zetia] 10 mg PO DAILY 07/29/17 [History] Quetiapine Fumarate [Seroquel] 800 mg PO HS 07/29/17 [History] hydrOXYzine pamoate [HydrOXYzine Pamoate] 50 mg PO TID PRN 07/29/17 [History] 3 Allergy/AdvReac Type Severity Reaction Status Date / Time duloxetine [From Cymbalta] Allergy Difficulty Verified 07/28/17 19:38 Breathing moxifloxacin [From Avelox] Allergy Hives Verified 07/28/17 19:38 Penicillins Allergy Difficulty Verified 07/28/17 19:38 Breathing haloperidol [From Haldol] AdvReac Severe See Verified 07/29/17 07:45 Comments Review of Systems Constitutional: Reports: weight change Eyes: Reports: vision change Ears, Nose, Throat: Reports: dental pain Cardiovascular: Reports: dyspnea on exertion, other Respiratory: Reports: dyspnea Gastrointestinal: Reports: constipation Genitourinary female: Denies: urgency, dysuria, frequency, abnormal menses, dyspareunia Musculoskeletal: Reports: joint pain Integumentary: Denies: rash, lesions, pruritus Neurological: Reports: headache, abnormal gait Psychiatric: Reports: depression, abnormal sleep pattern, suicidal ideation, memory loss, hopelessness Endocrine: Denies: fatigue, heat or cold intolerance Hematologic/Lymphatic: Denies: easy bruising, lymphadenopathy Allergic/Immunologic: Denies: urticaria, itchy eyes Exam - HEENT Head exam IM: Present: atraumatic Eye exam IM: Present: EOMI, PERRL ENT exam IM: Present: mucous membranes dry, normal exam, normal external ear exam, normal oropharynx, TM's normal bilaterally - Neurological Neurological exam: Present: CN II-XII intact - Respiratory Respiratory exam IM: Present: respiratory distress - GI/Abdominal GI/Abdominal exam IM: Present: guarding, normal bowel sounds - Extremities Extremities exam IM: Present: full ROM, warm - Skin Skin exam IM: Present: abrasion - Constitutional Vitals: Temp Pulse Resp BP Pulse Ox 98.1 F 92 16 124/54 98 07/28/17 19:38 07/29/17 05:47 07/29/17 05:47 07/29/17 05:47 07/29/17 05:47 General appearance: age & developmentally appropriate, thin - Musculoskeletal Gait: unsteady Station: shaky Strength & Tone: abnormal extension - Psychiatric Patient Orientation: Yes Person, Yes Time, Yes Place, Yes Circumstance Level of alertness: Alert Behavior: calm Psychomotor activity: Normal Eye Contact: Maintains Eye Contact Mood Description: Depressed, Anxious Affect description: blunted, dysphoric Speech Volume: Normal Speech pattern: normal rate Language & Vocabulary: consistent with education Thought Process: Intact, Thought Blocking Thought Content: Yes Suicidal ideation, Yes Obsessive thoughts Attention Span Ability: Capable of Sustained Attention Memory Description: Grossly Intact Patient Reliability: Reliable Historian Fund of knowledge: Yes abstraction ability Intelligence Estimate: Average Judgment: Limited Insight: Minimal Results - Labs Labs: Laboratory Last Values WBC 7.7 K/mcL (4.3-11.1) 07/28/17 21:13 RBC 3.83 M/mcL (3.82-4.97) 07/28/17 21:13 Hgb 11.6 g/dL (11.5-15.4) 07/28/17 21:13 Hct 35.1 % (35.3-44.9) L 07/28/17 21:13 MCV 91.6 fL (83.0-100.0) 07/28/17 21:13 MCH 30.3 pg (28.0-33.3) 07/28/17 21:13 MCHC 33.0 g/dL (31.6-35.5) 07/28/17 21:13 RDW 13.1 % (11.5-14.5) 07/28/17 21:13 Plt Count 210 K/mcL (140-400) 07/28/17 21:13 MPV 8.9 fL (9.4-12.4) L 07/28/17 21:13 Immature Gran % 0.4 % (0-4) 07/28/17 21:13 Seg Neutrophils % 52.2 % 07/28/17 21:13 Lymphocytes % 33.2 % 07/28/17 21:13 Monocytes % 7.7 % 07/28/17 21:13 Eosinophils % 5.6 % 07/28/17 21:13 Basophils % 0.9 % 07/28/17 21:13 Neutrophils # 4.0 K/mcL (1.6-8.9) 07/28/17 21:13 Lymphocytes # 2.6 K/mcL (0.6-4.6) 07/28/17 21:13 Monocytes # 0.6 K/mcL (0.0-1.3) 07/28/17 21:13 Eosinophils # 0.4 K/mcL (0.0-0.6) 07/28/17 21:13 Basophils # 0.1 K/mcL (0.0-0.2) 07/28/17 21:13 Sodium 136 mEq/L (136-145) 07/28/17 21:13 Potassium 3.5 mEq/L (3.5-5.1) 07/28/17 21:13 Chloride 111 mEq/L (98-107) H 07/28/17 21:13 Carbon Dioxide 26 mEq/L (23-29) 07/28/17 21:13 BUN 13 mg/dL (6-20) 07/28/17 21:13 Creatinine 0.86 mg/dL (0.60-1.20) 07/28/17 21:13 Est GFR ( Amer) > 60 (> 60) 07/28/17 21:13 Est GFR (Non-Af Amer) > 60 (> 60) 07/28/17 21:13 BUN/Creatinine Ratio 15 (6-26) 07/28/17 21:13 Glucose 105 mg/dL (70-105) 07/28/17 21:13 Calculated Osmolality 282 (280-300) 07/28/17 21:13 Calcium 8.9 mg/dL (8.6-10.3) 07/28/17 21:13 Total Bilirubin 0.3 mg/dL (0.3-1.0) 07/28/17 21:13 Direct Bilirubin 0.1 mg/dL (0.0-0.2) 07/28/17 21:13 Indirect Bilirubin 0.2 mg/dL (0.0-1.2) 07/28/17 21:13 AST 18 Units/L (13-39) 07/28/17 21:13 ALT 12 Units/L (7-52) 07/28/17 21:13 Alkaline Phosphatase 29 Units/L (34-104) L 07/28/17 21:13 Serum Total Protein 6.4 g/dL (6.4-8.9) 07/28/17 21:13 Albumin 3.8 g/dL (3.5-5.7) 07/28/17 21:13 Globulin 2.6 g/dL (2.4-3.5) 07/28/17 21:13 Albumin/Globulin Ratio 1.5 (1.1-2.2) 07/28/17 21:13 Lipase 9 Units/L (11-82) L 07/28/17 21:13 TSH 55.620 mcIU/mL (0.340-5.600) H 07/28/17 21:13 Free T4 0.47 ng/dl (0.70-2.00) L 07/28/17 21:13 Total T3 0.81 ng/mL (0.87-1.78) L 07/28/17 21:13 Ur Specimen Adequacy See below A 04/06/18 20:51 Urine Color Yellow (Yellow) 07/28/17 20:51 Urine Clarity Turbid (Clear) A 07/28/17 20:51 Urine pH 6.0 pH Units (5.0-8.0) 07/28/17 20:51 Ur Specific [place] 1.028 (1.010-1.025) H 07/28/17 20:51 Urine Protein 30 mg/dL (Neg-Trace) H 07/28/17 20:51 Urine Glucose (UA) Normal mg/dL (Normal) 07/28/17 20:51 Urine Ketones Negative mg/dL (Negative) 07/28/17 20:51 Urine Blood Moderate (Negative) H 07/28/17 20:51 Urine Nitrite Negative (Negative) 07/28/17 20:51 Urine Bilirubin Negative (Negative) 07/28/17 20:51 Urine Urobilinogen Normal mg/dL (Normal) 07/28/17 20:51 Ur Leukocyte Esterase Moderate (Negative) H 07/28/17 20:51 Urine Microscopic RBC 0-3 per hpf (0-3) 07/28/17 20:51 Urine Microscopic WBC TNTC per hpf (0-3) H 07/28/17 20:51 Ur Squamous Epith Cells Many per lpf (None-Few) H 07/28/17 20:51 Urine Bacteria Moderate per hpf (None-Few) H 07/28/17 20:51 Hyaline Casts Test Not Performed 07/28/17 20:51 Urine Yeast Test Not Performed 07/28/17 20:51 Ur Culture Indicated? NO. (NO) 07/28/17 20:51 Urine Test Negative (Negative) 07/28/17 20:51 Salicylates < 2.5 mg/dL (15.0-30.0) L 07/28/17 21:13 Urine Opiates Screen Negative ng/mL (Fexwzx=701) 07/28/17 20:51 Acetaminophen < 10 mcg/mL (10-20) L 07/28/17 21:13 Ur Barbiturates Screen Negative ng/mL (Dwtjhu=808) 07/28/17 20:51 Valproic Acid < 4 mcg/mL (50-100) L 07/28/17 21:13 Ur Phencyclidine Scrn Negative ng/mL (Cutoff=25) 07/28/17 20:51 Ur Amphetamines Screen Negative ng/mL (Ewguam=4485) 07/28/17 20:51 U Benzodiazepines Scrn Negative ng/mL (Azxswh=909) 07/28/17 20:51 Urine Cocaine Screen Negative ng/mL (Cutoff= 300) 07/28/17 20:51 U Marijuana (THC) Screen Negative ng/mL (Cutoff = 50) 07/28/17 20:51 Ethyl Alcohol < 10 mg/dL (Less than 10) 07/28/17 21:13 Assessment and Plan (1) Major depressive disorder, recurrent severe without psychotic features Current visit: Yes Status: Acute (2) Anorexia nervosa, restricting type, extreme Current visit: Yes Status: Acute Plan: Admit inpatient for safety and stabilization, Close observation, Monitor sleep, Monitor appetite Risks, benefits, side effects, alternatives discussed w/pt: Yes Patient agreeable to treatment: Yes Plans for Post Hospital Care: Home Estimated Length of Stay (Days): 6 (3) Hypothyroidism Current visit: Yes Status: Acute Plan: Admit inpatient for safety and stabilization, Close observation, Suicide Precautions per unit protocol, Monitor sleep, Monitor appetite Risks, benefits , side effects, alternatives discussed w/pt: Yes Patient agreeable to treatment: Yes Plans for Post Hospital Care: Home Qualifiers: Hypothyroidism type: due to medication Qualified Code(s): E03.2 - Hypothyroidism due to medicaments and other exogenous substances (4) Suicidal ideation Current visit: Yes Status: Acute Plan: Admit inpatient for safety and stabilization, Suicide Precautions per unit protocol, Secure weapons Risks, benefits, side effects, alternatives discussed w/pt: Yes Patient agreeable to treatment: Yes Plans for Post Hospital Care: Home (5) Hypothyroid Current visit: Yes Status: Acute Plan: Admit inpatient for safety and stabilization, Monitor sleep, Monitor appetite Risks, benefits, side effects, alternatives discussed w/pt: Yes Patient agreeable to treatment: Yes Plans for Post Hospital Care: Home Qualifiers: Hypothyroidism type: unspecified Qualified Code(s): E03.9 - Hypothyroidism , unspecified (6) Tardive dyskinesia Current visit: Yes Status: Acute Plan: Admit inpatient for safety and stabilization, Group Therapy, Monitor sleep , Monitor appetite Risks, benefits, side effects, alternatives discussed w/pt : Yes Patient agreeable to treatment: Yes
[2017-07-29] MEDS: clonazePAM 0.5 MG TABLET PO SCH ×2 (16:01→20:33)
[2017-07-29] MEDS: Melatonin 3 MG TABLET PO SCH (20:36)
[2017-07-30] MEDS: Pyridoxine (B-6) 50 MG TABLET PO SCH (08:39)
[2017-07-30] MEDS: MOM Conc 10 ML UD.LIQ PO SCH (08:39)
[2017-07-30] MEDS: clonazePAM 0.5 MG TABLET PO SCH ×3 (08:40→22:41)
[2017-07-30] MEDS ORDERED: Benzocaine 20% 9 GM GEL..GRAM. TP PRN (10:56)
--- NOTE | 2017-07-30 11:19 | Psychiatry Progress Note ---
Date of Encounter: 07/30/17 Time of Encounter: 10:30 Subjective Interval history: the patient has remained in a separate room with a padded bed rail this is due to the multiple choreiform movements of tardive dyskinesia. The patient has developed dental sores over the lower alveolar ridge. This is made her dentures fit poorly. She also has some pain located in the right masseter muscle. The patient has been on the unit. Her family member brought her some fast food which the patient ate and then immediately went and purged after they left. During this process she had her head on the toilet fixture. This was treated with bacitracin. The patient reports continuing low mood she notes that in the past she has been treated with 35 ECT she does not want to have the ECT because a "master". The patient reports that she has had tardive dyskinesia for the past year. These movements have limited her going outside she finds very distressing. As part of today's evaluation the patient completed the aims. This is the abnormal involuntary movement scale. The patient's total score was 33. It is important to note that her movements go away when she is able to fall sleep. And they are severely distressing. The patient has been wearing dentures but it is not clear the dental pain or dysfunction has led to weight loss. The patient was given information on the medicine and Ingrezza (valbenezine) that she agreed to sign the consent for the further company [employer]. To contact her. She also gave out alternative contact information. Her primary insurer is [employer]. Policy number and other contact information for her insurance provider were also included on the form. The patient and I discussed the treatment guidelines of 2013. To briefly summarize. The patient is currently on clonazepam and has had some improvement in the last 24 hours albeit minimal. She will start amantadine 100 mg twice a day this might help with choreiform movements. The medicine ginkgo biloba is not available in the [employer] formulary. The patient is failed Cogentin at high doses or the patient still reports some difficulty with vision and conjugate gaze. The patient will be started on vitamin E and vitamin B6. These do not show evidence and the guidelines but may be helpful on her likely to be well tolerated. The patient continues to focus on an ideal body weight of 100 pounds. I have told her that she should be weighed kilograms and that her target weight should be 47.5 kg. We do the calculations. This would be above 100 pounds would have the patient focus on a different number. The patient has had therapy she has been eating disorder clinics she has had multiple medicines. The patient reports being on antipsychotics often on through her young adult life. Patient had evidence of a UTI. I will order a culture and sensitivity. The patient's TSH was 55 and T4 and free T4 were low. He has been prescribed Synthroid. I examined the oral cavity with the dentures out. There is recurrent tongue movement lingual dyskinesia. There is an irritated alveolar ridge without significant lesion. I will prescribe ora lube for this. The patient had a 4 mm scabbed area over the vertex of the scalp. It is in the midline. There is no infection bleeding or swelling. Bacitracin can continue. I am hesitant to prescribe medicines to increase appetite. The patient focuses not on appetite but rather on grief associated with the loss for mother. She has a body image disturbance and states that her belly looks as if she is on her thighs her too big.. She does not seem to respond to reassurance or reason regarding appetite and nutrition. Review of Systems Constitutional: Reports: weight change Ears, Nose, Throat: Reports: dental pain Respiratory: Reports: other (less respiratory dyskinesia) Gastrointestinal: Reports: constipation Genitourinary female: Reports: dysuria Musculoskeletal: Reports: myalgia Neurological: Reports: memory loss, abnormal gait Psychiatric: Reports: depression, abnormal sleep pattern, suicidal ideation, change in appetite, memory loss, hopelessness Results - Vital Signs Vital Signs: Temp Pulse Resp BP Pulse Ox 98.1 F 90 16 111/68 98 07/30/17 08:26 07/30/17 08:26 07/30/17 08:26 07/30/17 08:26 07/29/17 05:47 - Drug Levels and Toxicology Drug Levels and Toxicology: Urinalysis WBc TNTC TSH 55 Assessment and Plan (1) Major depressive disorder, recurrent severe without psychotic features Current visit: Yes Status: Acute Plan: Continue hospitalization, Close observation, Encourage participation in unit milieu Risks, benefits, side effects, alternatives discussed w/pt: Yes Patient agreeable to treatment: Yes (2) Anorexia nervosa, restricting type, extreme Current visit: Yes Status: Acute Plan: Group Therapy, Monitor sleep, Monitor appetite Risks, benefits, side effects, alternatives discussed w/pt: Yes Patient agreeable to treatment: Yes (3) Hypothyroidism Current visit: Yes Status: Acute Plan: Continue hospitalization, Close observation, Monitor appetite Risks, benefits, side effects, alternatives discussed w/pt: Yes Patient agreeable to treatment: Yes Qualifiers: Hypothyroidism type: due to medication Qualified Code(s): E03.2 - Hypothyroidism due to medicaments and other exogenous substances (4) Suicidal ideation Current visit: Yes Status: Acute Plan: Continue hospitalization, Monitor appetite, Secure weapons, Family/ Supportive other meeting Risks, benefits, side effects, alternatives discussed w/pt: Yes Patient agreeable to treatment: Yes (5) Hypothyroid Current visit: Yes Status: Acute Plan: Continue hospitalization, Encourage participation in unit milieu, Monitor appetite Risks, benefits, side effects, alternatives discussed w/pt: Yes Patient agreeable to treatment: Yes Qualifiers: Hypothyroidism type: unspecified Qualified Code(s): E03.9 - Hypothyroidism , unspecified (6) Tardive dyskinesia Current visit: Yes Status: Acute Plan: Continue hospitalization, Other Risks, benefits, side effects, alternatives discussed w/pt: Yes Patient agreeable to treatment: Yes Consult Discharge Plan - Plan Referrals: Edelmira Mann [facility] [Primary Care Provider] - Psychiatry Exam - Constitutional Vitals: Temp Pulse Resp BP Pulse Ox 98.1 F 90 16 111/68 98 07/30/17 08:26 07/30/17 08:26 07/30/17 08:26 07/30/17 08:26 07/29/17 05:47 General appearance: well-groomed, malnourished, thin - Musculoskeletal Gait: other Station: shaky Strength & Tone: abnormal extension, abnormal flexion - Psychiatric Patient Orientation: Yes Person, Yes Time, Yes Place, Yes Circumstance Level of alertness: Alert Behavior: anxious Psychomotor activity: Abnormal movements Eye Contact: Maintains Eye Contact Mood Description: Depressed Affect description: congruent with mood, dysphoric Speech Volume: Soft/Quiet Speech pattern: normal rate Language & Vocabulary: consistent with education Thought Content: Yes Obsessive thoughts, Yes Thought broadcasting Perceptual Disturbances: No Auditory hallucinations, No Visual hallucinations Attention Span Ability: Capable of Sustained Attention Memory Description: Grossly Intact Patient Reliability: Reliable Historian Fund of knowledge: Yes average Intelligence Estimate: Average Judgment: Poor Insight: Minimal
[2017-07-30] MEDS ORDERED: Ondansetron 4 MG/2 ML VIAL IVP PRN (20:19)
[2017-07-30] MEDS ORDERED: diazePAM 10 MG/2 ML SYRINGE IVP ONE (20:37)
--- NOTE | 2017-07-30 20:41 | Internal Medicine Consult Note ---
Date of Encounter: 07/30/17 Time of Encounter: 20:39 - Assessment and plan (1) Hematemesis Current Visit: Yes Status: Acute Assessment and plan: The patient's hematemesis likely from significant induced vomiting possibly causing a Kasia-Gauthier tear. We will ask GI to see the patient. Nothing by mouth after midnight. Per nursing staff the episode was only minimal streak of blood. Patient is stable. STAT labs now. Check CT abd/pelvis Qualifiers: Nausea presence: unspecified Qualified Code(s): K92.0 - Hematemesis (2) Severe protein-calorie malnutrition Current Visit: Yes Status: Acute Assessment and plan: I have placed a consult to dietary. (3) Hypothyroid Current Visit: Yes Status: Acute Assessment and plan: Patient is not compliant. She is on oral Synthroid for now. Not sure how much she is absorbing given the induced vomiting. She will need to have repeat thyroid testing in 4-6 weeks. Consider IV thyroid supplementation. Qualifiers: Hypothyroidism type: unspecified Qualified Code(s): E03.9 - Hypothyroidism , unspecified (4) Suicidal ideation Current Visit: Yes Status: Acute Assessment and plan: Management per psych (5) Tardive dyskinesia Current Visit: Yes Status: Acute Assessment and plan: Management per psych - Time Spent With Patient Total time spent is greater than 50% in coordination of care (as documented) at patient's floor/unit and/or counseling patient: Internal Medicine - CN: HPI - Data of Consult Patient: new to practice Consult date: 07/30/17 Requesting Physician: Dieudonne Lopez - Consult Narrative Reason for consult: vomiting blood History of present illness: Ms. Pak is a 42 year old female with a history of anorexia nervosa, severe depression, hypothyroidism, noncompliance was been admitted under the psychiatrist service on 1 a due to significant depression from her mother's as well as significant hypothyroidism due to noncompliance. Please note that the patient is not able to give history due to evidence of significant EPS symptoms which are managed by psychiatry. I was called about the patient by her nurse who had talked to the psychiatrist who had requested a stat consult to the hospitalist as the patient was noted to have streaks of blood in her vomitus. From what I understand from the nursing staff as the patient sits throughout the day thinking that she is overweight and wants to get 100 pounds and because of that she induces herself to vomit and sometime this evening she was noted to have the bloody vomitus. She also points to her abdomen in pain. She is hemodynamically stable. She is afebrile. The patient is severely malnourished with a BMI of 17. She does not eat all day. When she presented to the ED she was noted to have low thyroid numbers with elevated TSH. She has not used her thyroid medications for 4 months or so. Past Med Surg Social Fam HX - Past Medical History Medical history: asthma, COPD, DVT, pulmonary embolus, seizures, thyroid disease Psychiatric history: depression, previous psychiatric hospitalization, other - Past Surgical History Surgical History: hysterectomy, other - Social History Smoking Status: Smoker, status unknown Smokeless Tobacco Status: No Alcohol use: none Drug use: none - Family History Mother Living Status: Still Living Hx Family Respiratory Disorders: Yes (lung cancer) Father Living Status: Hx Family Respiratory Disorders: Yes (lung cancer) ROS unobtainable: due to mental status Internal Medicine - CN: Meds Levothyroxine [Synthroid] 125 mcg PO QAM 03/25/15 [History] Sertraline [Zoloft] 100 mg PO HS #30 tablet 05/20/16 [Rx] Benztropine Mesylate 2 mg PO TID 07/29/17 [History] Ezetimibe [Zetia] 10 mg PO DAILY 07/29/17 [History] Quetiapine Fumarate [Seroquel] 800 mg PO HS 07/29/17 [History] hydrOXYzine pamoate [HydrOXYzine Pamoate] 50 mg PO TID PRN 07/29/17 [History] 3 Allergy/AdvReac Type Severity Reaction Status Date / Time duloxetine [From Cymbalta] Allergy Difficulty Verified 07/28/17 19:38 Breathing moxifloxacin [From Avelox] Allergy Hives Verified 07/28/17 19:38 Penicillins Allergy Difficulty Verified 07/28/17 19:38 Breathing haloperidol [From Haldol] AdvReac Severe See Verified 07/29/17 07:45 Comments Internal Medicine - CN: Exam - Constitutional Vitals: Temp Pulse Resp BP Pulse Ox 98.1 F 90 16 111/68 98 07/30/17 08:26 07/30/17 08:26 07/30/17 08:26 07/30/17 08:26 07/29/17 05:47 Exam: GEN: Patient has cordiform movements. HEENT: AT, NC, No cyanosis, oral mucosa is moist, No JVD Lymphatics: No lymphadenoapthy Eyes: Extrocular muscles intact, anicteric CVS:RRR. S1, S2, No m/r/g RESP: CTAB ABD: Soft, NT, ND, +BS EXT: No edema, No rashes, 2+ DP NEURO: The patient has generalized body movements consistent with cordiform movements. She is unable to stay still. Internal Medicine - CN: Reslt - Labs CBC & Chem 7: 07/28/17 21:13 07/28/17 21:13 Consult Discharge Plan - Plan Referrals: Edelmira Mann VICTIM WITNESS ADMINISTRATOR [Primary Care Provider] -
[2017-07-30] MEDS ORDERED: 0.9 % Sodium Chloride 1,000 ML IVC SCH (20:45)
[2017-07-30] MEDS: diazePAM 5 MG TABLET PO PRN (20:53)
[2017-07-30 20:54] LABS: Basophils # 0.1 K/mcL (0.0-0.2); Eosinophils # 0.4 K/mcL (0.0-0.6); Eosinophils % 4.8 %; Hematocrit 36.2 % (35.3-44.9); Immature Granulocytes % 0.3 % (0-4); Lymphocytes # 2.1 K/mcL (0.6-4.6); Lymphocytes % 27.1 %; Mean Corpuscular HGB Conc 33.1 g/dL (31.6-35.5); Mean Corpuscular Hemoglobin 30.5 pg (28.0-33.3); Mean Corpuscular Volume 91.9 fL (83.0-100.0); Mean Platelet Volume 8.9 fL (9.4-12.4); Monocytes # 0.7 K/mcL (0.0-1.3); Monocytes % 8.7 %; Neutrophils # 4.5 K/mcL (1.6-8.9); Platelet Count 215 K/mcL (140-400); Red Blood Count 3.94 M/mcL (3.82-4.97); Red Cell Distribution Width 13.2 % (11.5-14.5); Segmented Neutrophils % 58.1 %
[2017-07-30 21:05] LABS: INR 1.2; Prothrombin Time 12.8 Seconds (9.4-12.1)
[2017-07-30 21:21] LABS: Alanine Aminotransferase 13 Units/L (7-52); Albumin/Globulin Ratio 1.7 (1.1-2.2); Alkaline Phosphatase 28 Units/L (34-104); Aspartate Amino Transferase 23 Units/L (13-39); BUN/Creatinine Ratio 17 (6-26); Bilirubin,Total 0.3 mg/dL (0.3-1.0); Blood Urea Nitrogen 16 mg/dL (6-20); Calcium 9.5 mg/dL (8.6-10.3); Carbon Dioxide 27 mEq/L (23-29); Chloride 107 mEq/L (98-107); Globulin 2.4 g/dL (2.4-3.5); Glucose 108 mg/dL (70-105); Magnesium 2.3 mg/dL (1.6-2.6); Osmolality,Calculated 294 (280-300); Phosphorous 3.5 mg/dL (2.7-4.5); Potassium 4.1 mEq/L (3.5-5.1); Sodium 141 mEq/L (136-145); Total Protein 6.4 g/dL (6.4-8.9); eGFR For African Americans > 60 (> 60); eGFR For Non-African Americans > 60 (> 60)
[2017-07-30] MEDS ORDERED: Ondansetron ODT 4 MG TAB.RAPDIS PO PRN (21:21)
[2017-07-30] MEDS: Melatonin 3 MG TABLET PO SCH (22:39)
[2017-07-31] MEDS ORDERED: Pantoprazole 40 MG VIAL IVP SCH (06:00)
[2017-07-31] MEDS: clonazePAM 0.5 MG TABLET PO SCH ×3 (09:31→20:37)
[2017-07-31] MEDS: Pyridoxine (B-6) 50 MG TABLET PO SCH (09:31)
[2017-07-31] MEDS: MOM Conc 10 ML UD.LIQ PO SCH (09:31)
[2017-07-31 09:54] LABS: Basophils # 0.1 K/mcL (0.0-0.2); Eosinophils # 0.3 K/mcL (0.0-0.6); Eosinophils % 5.8 %; Hemoglobin 12.2 g/dL (11.5-15.4); Immature Granulocytes % 0.4 % (0-4); Lymphocytes # 1.7 K/mcL (0.6-4.6); Lymphocytes % 34.5 %; Mean Corpuscular HGB Conc 32.1 g/dL (31.6-35.5); Mean Corpuscular Volume 93.4 fL (83.0-100.0); Mean Platelet Volume 8.8 fL (9.4-12.4); Monocytes # 0.4 K/mcL (0.0-1.3); Monocytes % 8.8 %; Neutrophils # 2.5 K/mcL (1.6-8.9); Platelet Count 194 K/mcL (140-400); Red Blood Count 4.07 M/mcL (3.82-4.97); Red Cell Distribution Width 13.2 % (11.5-14.5); Segmented Neutrophils % 49.5 %
[2017-07-31 10:09] LABS: Alanine Aminotransferase 12 Units/L (7-52); Albumin 3.6 g/dL (3.5-5.7); Albumin/Globulin Ratio 1.4 (1.1-2.2); Alkaline Phosphatase 27 Units/L (34-104); Aspartate Amino Transferase 19 Units/L (13-39); BUN/Creatinine Ratio 19 (6-26); Bilirubin,Total 0.3 mg/dL (0.3-1.0); Blood Urea Nitrogen 16 mg/dL (6-20); Calcium 9.2 mg/dL (8.6-10.3); Carbon Dioxide 32 mEq/L (23-29); Chloride 108 mEq/L (98-107); Globulin 2.5 g/dL (2.4-3.5); Glucose 84 mg/dL (70-105); Osmolality,Calculated 292 (280-300); Potassium 3.8 mEq/L (3.5-5.1); Sodium 141 mEq/L (136-145); Total Protein 6.1 g/dL (6.4-8.9); eGFR For African Americans > 60 (> 60); eGFR For Non-African Americans > 60 (> 60)
[2017-07-31 10:12] LABS: BUN/Creatinine Ratio 19 (6-26); Blood Urea Nitrogen 16 mg/dL (6-20); Calcium 9.4 mg/dL (8.6-10.3); Carbon Dioxide 33 mEq/L (23-29); Chloride 109 mEq/L (98-107); Glucose 84 mg/dL (70-105); Magnesium 2.3 mg/dL (1.6-2.6); Osmolality,Calculated 292 (280-300); Potassium 3.8 mEq/L (3.5-5.1); Sodium 141 mEq/L (136-145); eGFR For African Americans > 60 (> 60); eGFR For Non-African Americans > 60 (> 60)
--- NOTE | 2017-07-31 11:58 | Psychiatry Progress Note ---
Date of Encounter: 07/31/17 Time of Encounter: 11:51 Subjective Interval history: Client states she is severely depressed. Multiple losses in the last year. Claims her mother a week ago. Wants to end her life by starvation and being noncompliant with thyroid medication. Unclear how well thyroid medication is even working given her induced vomiting. Seen by hospitalist and GI follow-up recommended. Awaiting recommendations from GI. Client is on multiple mental health medications but their efficacy is also likely diminished given her noncompliance, malabsorption, and self-induced vomiting. Severe Borderline Personality Disorder. Per staff she has a history of pseudoseizures so bad she has been intubated on 1A as the code response team did not know if her seizure activity was genuine or not and client ended up getting so much Ativan she lost her airway. Will be difficult to treat. Has tried multiple programs in the past with limited success. Needs somewhere residential. Would not rule out a detention facility at this point given how her physical health has declined over the years. Unable to care for her basic needs in her current state. Review of Systems Constitutional: Reports: weakness, weight change Eyes: Denies: eye pain, vision change Ears, Nose, Throat: Denies: ear pain, throat pain, dental pain, hearing loss, congestion Cardiovascular: Denies: chest pain, palpitations, dyspnea on exertion Respiratory: Denies: cough, dyspnea, wheezes Gastrointestinal: Reports: abdominal pain, vomiting, hematemisis Musculoskeletal: Reports: myalgia Neurological: Reports: weakness Psychiatric: Reports: depression, abnormal sleep pattern, suicidal ideation, change in appetite, memory loss, hopelessness Results - Vital Signs Vital Signs: Temp Pulse Resp BP Pulse Ox 97.6 F 72 16 95/64 98 07/31/17 09:00 07/31/17 09:00 07/31/17 09:00 07/31/17 09:00 07/29/17 05:47 - Labs Labs: Laboratory Results - last 24 hr 07/30/17 07/30/17 07/30/17 20:41 20:41 20:41 WBC 7.7 RBC 3.94 Hgb 12.0 Hct 36.2 MCV 91.9 MCH 30.5 MCHC 33.1 RDW 13.2 Plt Count 215 MPV 8.9 L Immature Gran % 0.3 Seg Neutrophils % 58.1 Lymphocytes % 27.1 Monocytes % 8.7 Eosinophils % 4.8 Basophils % 1.0 Neutrophils # 4.5 Lymphocytes # 2.1 Monocytes # 0.7 Eosinophils # 0.4 Basophils # 0.1 PT 12.8 H INR 1.2 Sodium 141 Potassium 4.1 Chloride 107 Carbon Dioxide 27 BUN 16 Creatinine 0.92 Est GFR ( Amer) > 60 Est GFR (Non-Af Amer) > 60 BUN/Creatinine Ratio 17 Glucose 108 H Calculated Osmolality 294 Calcium 9.5 Phosphorus 3.5 Magnesium 2.3 Total Bilirubin 0.3 AST 23 ALT 13 Alkaline Phosphatase 28 L Serum Total Protein 6.4 Albumin 4.0 Globulin 2.4 Albumin/Globulin Ratio 1.7 07/31/17 07/31/17 07/31/17 09:17 09:17 09:17 WBC 5.0 RBC 4.07 Hgb 12.2 Hct 38.0 MCV 93.4 MCH 30.0 MCHC 32.1 RDW 13.2 Plt Count 194 MPV 8.8 L Immature Gran % 0.4 Seg Neutrophils % 49.5 Lymphocytes % 34.5 Monocytes % 8.8 Eosinophils % 5.8 Basophils % 1.0 Neutrophils # 2.5 Lymphocytes # 1.7 Monocytes # 0.4 Eosinophils # 0.3 Basophils # 0.1 PT INR Sodium 141 141 Potassium 3.8 3.8 Chloride 108 H 109 H Carbon Dioxide 32 H 33 H BUN 16 16 Creatinine 0.86 0.85 Est GFR ( Amer) > 60 > 60 Est GFR (Non-Af Amer) > 60 > 60 BUN/Creatinine Ratio 19 19 Glucose 84 84 Calculated Osmolality 292 292 Calcium 9.2 9.4 Phosphorus Magnesium 2.3 Total Bilirubin 0.3 AST 19 ALT 12 Alkaline Phosphatase 27 L Serum Total Protein 6.1 L Albumin 3.6 Globulin 2.5 Albumin/Globulin Ratio 1.4 - Impressions ITS Impressions Abdomen/Pelvis CT 07/30/17 21:41 IMPRESSION: 1. No acute findings within the abdomen or pelvis. No evidence of obstructive uropathy. Mild diffuse colonic stool burden with no acute inflammatory changes. 2. No CT evidence of appendicitis. 3. Previous cholecystectomy and hysterectomy. D/ / 07/30/2017 22:37:10 Suresh Castellanos MD / stephy Interpreting Provider: Suresh Castellanos MD Assessment and Plan (1) Major depressive disorder, recurrent severe without psychotic features Current visit: Yes Status: Acute Plan: Continue hospitalization, Close observation, Suicide Precautions per unit protocol, Encourage participation in unit milieu, Group Therapy, Monitor sleep, Monitor appetite Risks, benefits, side effects, alternatives discussed w/pt: Yes Patient agreeable to treatment: Yes (2) Anorexia nervosa, restricting type, extreme Current visit: Yes Status: Acute Plan: Continue hospitalization, Close observation, Suicide Precautions per unit protocol, Encourage participation in unit milieu, Group Therapy, Monitor sleep, Monitor appetite Risks, benefits, side effects, alternatives discussed w/pt: Yes Patient agreeable to treatment: Yes Consult Discharge Plan - Plan Referrals: Edelmira Mann EQUIPMENT MAINTENANCE TECH [Advanced Practice Nurse] - Psychiatry Exam - Constitutional Vitals: Temp Pulse Resp BP Pulse Ox 97.6 F 72 16 95/64 98 07/31/17 09:00 07/31/17 09:00 07/31/17 09:00 07/31/17 09:00 07/29/17 05:47 General appearance: age & developmentally appropriate, well-groomed, well- nourished - Musculoskeletal Gait: unsteady Station: shaky Strength & Tone: mild weakness - Psychiatric Patient Orientation: Yes Person, Yes Time, Yes Place Level of alertness: Alert Behavior: anxious Psychomotor activity: Abnormal movements Eye Contact: Minimal Contact Mood Description: Depressed Affect description: congruent with mood Speech Volume: Normal Speech pattern: normal rate, normal rhythm, normal tone, fluent, spontaneous Language & Vocabulary: consistent with education Thought Process: Linear Thought Content: Yes Suicidal ideation, No Homicidal ideation, No Overt delusions Perceptual Disturbances: No Auditory hallucinations, No Visual hallucinations Attention Span Ability: Capable of Focused Attention Memory Description: Grossly Intact Patient Reliability: Questionable Historian Fund of knowledge: Yes abstraction ability, Yes aware of current events Intelligence Estimate: Average Judgment: Limited Insight: Partial
--- NOTE | 2017-07-31 13:28 | Gastroenterology Consult Note ---
<Jose A Poole - Last Filed: 07/31/17 13:26> Date of Encounter: 07/31/17 Time of Encounter: 12:20 - Assessment and plan (1) Constipation Current Visit: Yes Status: Acute Assessment and plan: Recommend daily fiber supplement. Can add in Miralax up to BID. Qualifiers: Constipation type: unspecified constipation type Qualified Code(s): K59.00 - Constipation, unspecified (2) Hematemesis Current Visit: Yes Status: Acute Assessment and plan: Likely secondary to small Kasia-Gauthier tear due to vomiting. Hgb is stable, if Hgb drops will consider EGD. Qualifiers: Nausea presence: unspecified Qualified Code(s): K92.0 - Hematemesis - Time Spent With Patient Total time spent is greater than 50% in coordination of care (as documented) at patient's floor/unit and/or counseling patient: GI History of Present Illness - Data of Consult Patient: new to practice Consult date: 07/31/17 Requesting Physician: Dieudonne Lopez - Consult Narrative Reason for consult: Hematemesis History of present illness: Ms. Pak is a 42 year old female with PMHx of asthma, COPD, DVT, PE, seizures , hypothyroidism, severe depression, anorexia nervosa was admitted under the psychiatrist service due to significant depression from her mother's as well as significant hypothyroidism due to noncompliance. We have been consulted to evaluate hematemesis. The patient sits throughout the day thinking that she is overweight and wants to get 100 pounds and because of that she induces herself to vomit and she was noted to have the bloody vomitus. Hgb on admission was 11.6 and yesterday Hgb 12. CT A/P with no acute findings. She also reports constipation having one bowel movement per week. She denies melena or hematochezia. Procedures: EGD and colonoscopy 3 weeks ago at [facility], normal per patient report. NSAIDs: None Anticoagulation: None Past Med Surg Social Fam HX - Past Medical History Medical history: asthma, COPD, DVT, pulmonary embolus, seizures, thyroid disease Psychiatric history: depression, previous psychiatric hospitalization, other - Past Surgical History Surgical History: hysterectomy, other - Social History Smoking Status: Smoker, status unknown Smokeless Tobacco Status: No Alcohol use: none Drug use: none - Family History Mother Living Status: Still Living Hx Family Respiratory Disorders: Yes (lung cancer) Father Living Status: Hx Family Respiratory Disorders: Yes (lung cancer) - Gastrointestinal Gastrointestinal: Present: as per HPI - Constitutional Constitutional: as per HPI - EENT Eyes: as per HPI Ears: Present: as per HPI Nose, mouth and throat: Present: as per HPI - Cardiovascular Cardiovascular ROS: Present: as per HPI - Respiratory Respiratory IM: Present: as per HPI - Genitourinary Genitourinary: Absent: change in color - Neurological ROS Neurological GI: Present: as per HPI - Hematologic/Lymphatic Hematologic/Lymphatic pediatric: Present: as per HPI - Musculoskeletal Musculoskeletal ROS GI: Present: as per HPI - Integumentary Integumentary GI: Present: as per HPI - Psychiatric ROS Psychiatric GI: Present: as per HPI - Endocrine Endocrine IM: Present: as per HPI - Constitutional Vitals: Temp Pulse Resp BP Pulse Ox 97.6 F 72 16 95/64 98 07/31/17 09:00 07/31/17 09:00 07/31/17 09:00 07/31/17 09:00 07/29/17 05:47 General appearance: Present: cooperative, A&O X 3, no acute distress, thin, answers questions appropriately Exam: Generalized body movements - Head Head exam: Present: atraumatic, normocephalic - Eye Eye exam: Present: normal appearance, sclera anicteric - ENT ENT exam: Present: mucous membranes moist - Neck Neck exam general surgery: Present: normal inspection, trachea midline - Respiratory Respiratory exam: Present: CTAB. Absent: rales, rhonchi - Cardiovascular Cardiovascular exam: Present: RRR, +S1, +S2 - GI/Abdominal GI/Abdominal exam: Present: soft, no peritoneal signs. Absent: distended, firm , guarding, tenderness - Rectal Rectal exam: Present: deferred - Extremities Exam Extremities exam: Present: warm - Neurological Exam Neurological exam: Present: no focal deficits - Psychiatric Psychiatric exam: Present: normal affect, normal mood - Skin Skin exam: Present: dry, intact, normal color, warm Results - Labs CBC & Chem 7: 07/31/17 09:17 07/31/17 09:17 Labs: Last Result Calcium 9.4 mg/dL (8.6-10.3) 07/31/17 09:17 Salicylates < 2.5 mg/dL (15.0-30.0) L 07/28/17 21:13 Urine Opiates Screen Negative ng/mL (Qgfifo=995) 07/28/17 20:51 Entire Visit Hgb 12.2 g/dL (11.5-15.4) 07/31/17 09:17 Hct 38.0 % (35.3-44.9) 07/31/17 09:17 PT 12.8 Seconds (9.4-12.1) H 07/30/17 20:41 Total Bilirubin 0.3 mg/dL (0.3-1.0) 07/31/17 09:17 AST 19 Units/L (13-39) 07/31/17 09:17 ALT 12 Units/L (7-52) 07/31/17 09:17 Lipase 9 Units/L (11-82) L 07/28/17 21:13 Acetaminophen < 10 mcg/mL (10-20) L 07/28/17 21:13 - ABG ABG results: PT/INR, D-dimer PT 12.8 Seconds (9.4-12.1) H 07/30/17 20:41 - Impressions Impressions Abdomen/Pelvis CT 07/30/17 21:41 IMPRESSION: 1. No acute findings within the abdomen or pelvis. No evidence of obstructive uropathy. Mild diffuse colonic stool burden with no acute inflammatory changes. 2. No CT evidence of appendicitis. 3. Previous cholecystectomy and hysterectomy. D/ / 07/30/2017 22:37:10 Surehs Castellanos MD / stephy Interpreting Provider: Suresh Castellanos MD Consult Discharge Plan - Plan Referrals: Edelmira Mann, HAT BLOCKER [Advanced Practice Nurse] - <Celso Salomon - Last Filed: 07/31/17 15:15> Date of Encounter: 07/31/17 Time of Encounter: 14:00 - Time Spent With Patient Total time spent is greater than 50% in coordination of care (as documented) at patient's floor/unit and/or counseling patient: GI History of Present Illness - Data of Consult Requesting Physician: Dieudonne Lopez - Consult Narrative History of present illness: Ms. Pak is a 42 year old female - Constitutional Vitals: Temp Pulse Resp BP Pulse Ox 97.6 F 72 16 95/64 98 07/31/17 09:00 07/31/17 09:00 07/31/17 09:00 07/31/17 09:00 07/29/17 05:47 Results - Labs CBC & Chem 7: 07/31/17 09:17 07/31/17 09:17 Labs: Last Result Calcium 9.4 mg/dL (8.6-10.3) 07/31/17 09:17 Salicylates < 2.5 mg/dL (15.0-30.0) L 07/28/17 21:13 Urine Opiates Screen Negative ng/mL (Qjxchx=025) 07/28/17 20:51 Entire Visit Hgb 12.2 g/dL (11.5-15.4) 07/31/17 09:17 Hct 38.0 % (35.3-44.9) 07/31/17 09:17 PT 12.8 Seconds (9.4-12.1) H 07/30/17 20:41 Total Bilirubin 0.3 mg/dL (0.3-1.0) 07/31/17 09:17 AST 19 Units/L (13-39) 07/31/17 09:17 ALT 12 Units/L (7-52) 07/31/17 09:17 Lipase 9 Units/L (11-82) L 07/28/17 21:13 Acetaminophen < 10 mcg/mL (10-20) L 07/28/17 21:13 - ABG ABG results: PT/INR, D-dimer PT 12.8 Seconds (9.4-12.1) H 07/30/17 20:41 - Impressions Impressions Abdomen/Pelvis CT 07/30/17 21:41 IMPRESSION: 1. No acute findings within the abdomen or pelvis. No evidence of obstructive uropathy. Mild diffuse colonic stool burden with no acute inflammatory changes. 2. No CT evidence of appendicitis. 3. Previous cholecystectomy and hysterectomy. D/ / 07/30/2017 22:37:10 Suresh Castellanos MD / stephy Interpreting Provider: Suresh Castellanos MD - Attending Attestation I have personally performed a face to face evaluation on this patient. I have reviewed and agree with the care plan. History and Exam by me shows: Patient seen no more hematemesis. Hemoglobin is stable does complain of chronic abdominal pain but abdominal exam is unremarkable and CT scan is also negative. Recommendation: Follow H&H no need for EGD
--- NOTE | 2017-07-31 14:42 | Event Note ---
Date of Encounter: 07/31/17 Time of Encounter: 14:41 GI will evaluate patient today. No further recommendations from medicine at this time. We will sign off. Call us with any questions.
[2017-07-31] MEDS: Melatonin 3 MG TABLET PO SCH (20:39)
[2017-07-31] MEDS: traZODone 50 MG TABLET PO PRN (20:40)
[2017-08-01] MEDS: Pyridoxine (B-6) 50 MG TABLET PO SCH (09:18)
[2017-08-01] MEDS: clonazePAM 0.5 MG TABLET PO SCH ×3 (09:19→20:51)
[2017-08-01] MEDS: MOM Conc 10 ML UD.LIQ PO SCH (09:21)
--- NOTE | 2017-08-01 13:22 | Psychiatry Progress Note ---
Date of Encounter: 08/01/17 Time of Encounter: 12:30 Subjective Interval history: Patient is seen for follow-up. Case discussed was treatment team. Patient needed assistance from the staff to ambulate and come into the office to see me. She is reported to have a history of tardive dyskinesia, unknown duration. She was avoidant eye contact withdrawn, answer a few questions. Occupied with her body image and weight, she think she is too fat. Admit to noncompliance to medication. She was crying and could not continue her visits. She was helped with the staff back to her room. Review of Systems Psychiatric: Reports: depression, abnormal sleep pattern, suicidal ideation, change in appetite, memory loss, hopelessness Results - Vital Signs Vital Signs: Temp Pulse Resp BP Pulse Ox 98.5 F 50 18 106/59 98 08/01/17 09:00 08/01/17 09:00 08/01/17 09:00 08/01/17 09:00 07/29/17 05:47 - Impressions ITS Impressions Abdomen/Pelvis CT 07/30/17 21:41 IMPRESSION: 1. No acute findings within the abdomen or pelvis. No evidence of obstructive uropathy. Mild diffuse colonic stool burden with no acute inflammatory changes. 2. No CT evidence of appendicitis. 3. Previous cholecystectomy and hysterectomy. D/ / 07/30/2017 22:37:10 Suresh Castellanos MD / stephy Interpreting Provider: Suresh Castellanos MD Assessment and Plan (1) Major depressive disorder, recurrent severe without psychotic features Current visit: Yes Status: Acute Plan: Continue hospitalization, Close observation, Suicide Precautions per unit protocol, Encourage participation in unit milieu, Group Therapy, Monitor sleep, Monitor appetite Risks, benefits, side effects, alternatives discussed w/pt: Yes Patient agreeable to treatment: Yes (2) Anorexia nervosa, restricting type, extreme Current visit: Yes Status: Acute Plan: Continue hospitalization, Close observation, Suicide Precautions per unit protocol, Encourage participation in unit milieu, Group Therapy, Monitor sleep, Monitor appetite Risks, benefits, side effects, alternatives discussed w/pt: Yes Patient agreeable to treatment: Yes Consult Discharge Plan - Plan Referrals: Edelmira Mann, BULL DRIVER [Advanced Practice Nurse] - Psychiatry Exam - Constitutional Vitals: Temp Pulse Resp BP Pulse Ox 98.5 F 50 18 106/59 98 08/01/17 09:00 08/01/17 09:00 08/01/17 09:00 08/01/17 09:00 07/29/17 05:47 General appearance: well-groomed, malnourished, thin - Musculoskeletal Gait: unsteady, other (Tardive dyskinesia) Station: relaxed Strength & Tone: flaccid, cog wheel - Psychiatric Patient Orientation: Yes Person, Yes Time, Yes Place Level of alertness: Alert Behavior: calm, cooperative Psychomotor activity: Abnormal movements (tardive dyskinesia) Eye Contact: No Eye Contact Mood Description: Depressed, Irritable Affect description: constricted, tearful Speech Volume: Soft/Quiet Speech pattern: normal rate, normal rhythm, normal tone, limited Language & Vocabulary: consistent with education Thought Process: Linear, Goal Oriented Thought Content: Yes Suicidal ideation, No Homicidal ideation, No Overt delusions, Yes Preoccupation (Body image distortion, thinks she is fat, BMI 17.5 ), Yes Somatic delusion, Yes Obsessive thoughts Perceptual Disturbances: No Auditory hallucinations, No Visual hallucinations Attention Span Ability: Unable to Focus Memory Description: Grossly Intact Patient Reliability: Reliable Historian Fund of knowledge: Yes abstraction ability, Yes aware of current events Intelligence Estimate: Average Judgment: Limited Insight: Partial
[2017-08-01] MEDS: hydrOXYzine pamoate 25 MG CAPSULE PO PRN ×2 (19:38→20:51)
[2017-08-01] MEDS: traZODone 50 MG TABLET PO PRN (20:51)
[2017-08-01] MEDS: Melatonin 3 MG TABLET PO SCH (20:51)
--- NOTE | 2017-08-01 22:34 | Electrocardiograph Report ---
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
[2017-08-02] MEDS: Pyridoxine (B-6) 50 MG TABLET PO SCH (09:38)
[2017-08-02] MEDS: MOM Conc 10 ML UD.LIQ PO SCH (09:38)
[2017-08-02] MEDS: clonazePAM 0.5 MG TABLET PO SCH ×3 (09:38→20:24)
--- NOTE | 2017-08-02 15:57 | Psychiatry Progress Note ---
Date of Encounter: 08/02/17 Time of Encounter: 15:40 Subjective Interval history: Patient was seen for follow-up. Case discussed was treatment team. Patient was seen with nursing staff. I was notified by social group worker that patient reported to family that she would kill herself if discharged from the hospital. At this time patient was probated in order for treatment and hospitalization to continue. Patient is refusing scheduled medication, noncompliant with activities or groups, oppositional and attention seeking. She continue to be emotional and crying missing her mother and refusing to accept any coping skills. Review of Systems Psychiatric: Reports: depression, abnormal sleep pattern, suicidal ideation, change in appetite, memory loss, hopelessness Results - Vital Signs Vital Signs: Temp Pulse Resp BP Pulse Ox 97.6 F 81 16 106/71 98 08/02/17 08:46 08/02/17 08:46 08/02/17 08:46 08/02/17 08:46 07/29/17 05:47 - Impressions ITS Impressions Abdomen/Pelvis CT 07/30/17 21:41 IMPRESSION: 1. No acute findings within the abdomen or pelvis. No evidence of obstructive uropathy. Mild diffuse colonic stool burden with no acute inflammatory changes. 2. No CT evidence of appendicitis. 3. Previous cholecystectomy and hysterectomy. D/ / 07/30/2017 22:37:10 Suresh Castellanos MD / stephy Interpreting Provider: Suresh Castellanos MD Assessment and Plan (1) Major depressive disorder, recurrent severe without psychotic features Current visit: Yes Status: Acute Plan: Continue hospitalization, Close observation, Suicide Precautions per unit protocol, Encourage participation in unit milieu, Group Therapy, Monitor sleep, Monitor appetite Risks, benefits, side effects, alternatives discussed w/pt: Yes Patient agreeable to treatment: Yes (2) Anorexia nervosa, restricting type, extreme Current visit: Yes Status: Acute Plan: Continue hospitalization, Close observation, Suicide Precautions per unit protocol, Encourage participation in unit milieu, Group Therapy, Monitor sleep, Monitor appetite Risks, benefits, side effects, alternatives discussed w/pt: Yes Patient agreeable to treatment: Yes Consult Discharge Plan - Plan Referrals: [facility] [Outside] (The above appointment is with Cuong Pinto for outpatient psychiatric assessment and medication management services. You will also see her counselor,Graham, on 08/22/2017 at 3:00 PM. Office staff will contact you if the cancellation occurs that would allow you to be seen sooner. Additionally, case management services will be assigned after meeting with your psychiatric prescriber.) Edelmira Mann, COMMUNITY MENTAL HEALTH SOCIAL WORKER [Advanced Practice Nurse] - 08/04/17 11:00 am (The above appointment is with Edelmira Mann for primary healthcare and medication management services. ) Psychiatry Exam - Constitutional Vitals: Temp Pulse Resp BP Pulse Ox 97.6 F 81 16 106/71 98 08/02/17 08:46 08/02/17 08:46 08/02/17 08:46 08/02/17 08:46 07/29/17 05:47 General appearance: age & developmentally appropriate, well-groomed, well- nourished - Musculoskeletal Gait: unsteady, ataxic Station: stooped, posturing Strength & Tone: normal for patient - Psychiatric Patient Orientation: Yes Person, Yes Time, Yes Place Level of alertness: Alert Behavior: calm, cooperative, guarded Psychomotor activity: Increased Eye Contact: Minimal Contact Mood Description: Euthymic/stable Affect description: congruent with mood, labile Speech Volume: Normal Speech pattern: normal rate, normal rhythm, normal tone, fluent, spontaneous Language & Vocabulary: consistent with education Thought Process: Linear, Goal Oriented Thought Content: No Suicidal ideation, No Homicidal ideation, No Overt delusions Perceptual Disturbances: No Auditory hallucinations, No Visual hallucinations Attention Span Ability: Capable of Focused Attention Memory Description: Grossly Intact Patient Reliability: Reliable Historian Fund of knowledge: Yes abstraction ability, Yes aware of current events Intelligence Estimate: Average Judgment: Limited Insight: Partial
[2017-08-02] MEDS: hydrOXYzine pamoate 25 MG CAPSULE PO PRN (20:21)
[2017-08-02] MEDS: traZODone 50 MG TABLET PO PRN (20:24)
[2017-08-02] MEDS: Melatonin 3 MG TABLET PO SCH (20:28)
[2017-08-03] MEDS: clonazePAM 0.5 MG TABLET PO SCH ×3 (09:07→20:58)
[2017-08-03] MEDS: Pyridoxine (B-6) 50 MG TABLET PO SCH (09:07)
[2017-08-03] MEDS: MOM Conc 10 ML UD.LIQ PO SCH (09:09)
[2017-08-03 12:09] LABS: Alanine Aminotransferase 13 Units/L (7-52); Albumin/Globulin Ratio 1.7 (1.1-2.2); Alkaline Phosphatase 28 Units/L (34-104); Aspartate Amino Transferase 23 Units/L (13-39); BUN/Creatinine Ratio 15 (6-26); Bilirubin,Total 0.3 mg/dL (0.3-1.0); Blood Urea Nitrogen 13 mg/dL (6-20); Calcium 9.5 mg/dL (8.6-10.3); Carbon Dioxide 28 mEq/L (23-29); Chloride 108 mEq/L (98-107); Globulin 2.3 g/dL (2.4-3.5); Glucose 95 mg/dL (70-105); Osmolality,Calculated 296 (280-300); Potassium 4.5 mEq/L (3.5-5.1); Sodium 143 mEq/L (136-145); Total Protein 6.3 g/dL (6.4-8.9); eGFR For African Americans > 60 (> 60); eGFR For Non-African Americans > 60 (> 60)
[2017-08-03 12:35] LABS: Bilirubin,Urine Negative (Negative); Blood,Urine Negative (Negative); Clarity,Urine Turbid (Clear); Color,Urine Yellow (Yellow); Glucose,Urine (UA) Normal (Normal); Ketones,Urine Negative (Negative); Leukocyte Esterase,Urine Moderate (Negative); Nitrite,Urine Negative (Negative); Protein,Urine Negative (Neg-Trace); Urobilinogen,Urine Normal (Normal)
[2017-08-03 12:37] LABS: Bacteria,Urine None Seen per hpf (None-Few); Hyaline Casts,Urine None Seen per lpf (None-Few); Squamous Epithelial Cell,Urine Many per lpf (None-Few)
[2017-08-03 13:59] LABS: Amorphous Sediment,Urine Many (Few)
--- NOTE | 2017-08-03 15:48 | Psychiatry Progress Note ---
Date of Encounter: 08/03/17 Time of Encounter: 15:00 Subjective Interval history: Patient seen for follow-up with nursing staff. Case discussed with the treatment team. I reviewed notes by criminal justice social worker and an nursing staff. Staff report patient continued to refuse medication on and off and refusing and fluids taking fluids occasionally indicated low protein and low total protein and low electrolytes are still within normal limits except chlorides. Discussed with patient ways to to help herself grieve the loss of her mother but honor her memory . We discussed was her positive coping with loss of loved ones. I also discussed was alert the consequences of starvation that may lead to medical hospitalization and other medical interventions. I encouraged patient to accept protein supplements or try it. She continues to endorse hopelessness and suicidal ideation. Review of Systems Psychiatric: Reports: depression, abnormal sleep pattern, suicidal ideation, change in appetite, memory loss, hopelessness Results - Vital Signs Vital Signs: Temp Pulse Resp BP Pulse Ox 97.2 F L 76 16 94/54 98 08/03/17 09:00 08/03/17 09:00 08/03/17 09:00 08/03/17 09:00 07/29/17 05:47 - Labs Labs: Laboratory Results - last 24 hr 08/03/17 08/03/17 11:39 12:00 Sodium 143 Potassium 4.5 Chloride 108 H Carbon Dioxide 28 BUN 13 Creatinine 0.89 Est GFR ( Amer) > 60 Est GFR (Non-Af Amer) > 60 BUN/Creatinine Ratio 15 Glucose 95 Calculated Osmolality 296 Calcium 9.5 Total Bilirubin 0.3 AST 23 ALT 13 Alkaline Phosphatase 28 L Serum Total Protein 6.3 L Albumin 4.0 Globulin 2.3 L Albumin/Globulin Ratio 1.7 Urine Color Yellow Urine Clarity Turbid A Urine pH 7.0 Ur Specific Murray 1.020 Urine Protein Negative Urine Glucose (UA) Normal Urine Ketones Negative Urine Blood Negative Urine Nitrite Negative Urine Bilirubin Negative Urine Urobilinogen Normal Ur Leukocyte Esterase Moderate H Urine Microscopic WBC 5-15 H Ur Squamous Epith Cells Many H Amorphous Sediment Many H Urine Bacteria None Seen Hyaline Casts None Seen Ur Culture Indicated? NO. - Impressions ITS Impressions Abdomen/Pelvis CT 07/30/17 21:41 IMPRESSION: 1. No acute findings within the abdomen or pelvis. No evidence of obstructive uropathy. Mild diffuse colonic stool burden with no acute inflammatory changes. 2. No CT evidence of appendicitis. 3. Previous cholecystectomy and hysterectomy. D/ / 07/30/2017 22:37:10 Suresh Castellanos MD / stephy Interpreting Provider: Suresh Castellanos MD Assessment and Plan (1) Major depressive disorder, recurrent severe without psychotic features Current visit: Yes Status: Acute Plan: Continue hospitalization, Close observation, Suicide Precautions per unit protocol, Encourage participation in unit milieu, Group Therapy, Monitor sleep, Monitor appetite Additional Plan: Will order TSH. Admission TSH was 55+ Risks, benefits, side effects, alternatives discussed w/pt: Yes Patient agreeable to treatment: Yes (2) Anorexia nervosa, restricting type, extreme Current visit: Yes Status: Acute Plan: Continue hospitalization, Close observation, Suicide Precautions per unit protocol, Encourage participation in unit milieu, Group Therapy, Monitor sleep, Monitor appetite Risks, benefits, side effects, alternatives discussed w/pt: Yes Patient agreeable to treatment: Yes Consult Discharge Plan - Plan Referrals: [facility] [Outside] - 08/09/17 4:30 pm (The above appointment is with Cuong Pinto for outpatient psychiatric assessment and medication management services. You will also see her counselor, Graham, on 2017 at 3:00 PM. Office staff will contact you if the cancellation occurs that would allow you to be seen sooner. Additionally, case management services will be assigned after meeting with your psychiatric prescriber.) Edelmira Mann CNP [Advanced Practice Nurse] - 08/11/17 11:20 am (The above appointment is with Edelmira Mann for primary healthcare and medication management services. ) Psychiatry Exam - Constitutional Vitals: Temp Pulse Resp BP Pulse Ox 97.2 F L 76 16 94/54 98 08/03/17 09:00 08/03/17 09:00 08/03/17 09:00 08/03/17 09:00 07/29/17 05:47 General appearance: age & developmentally appropriate, well-groomed, malnourished, thin - Musculoskeletal Gait: normal Station: relaxed Strength & Tone: normal for patient - Psychiatric Patient Orientation: Yes Person, Yes Time, Yes Place Level of alertness: Alert Behavior: calm, cooperative, guarded Psychomotor activity: Slowed Eye Contact: Minimal Contact Mood Description: Euthymic/stable, Depressed Affect description: congruent with mood, constricted, tearful Speech Volume: Normal Speech pattern: normal rate, normal rhythm, normal tone, fluent, spontaneous Language & Vocabulary: consistent with education Thought Process: Linear, Goal Oriented Thought Content: Yes Suicidal ideation, No Homicidal ideation, No Overt delusions Perceptual Disturbances: No Auditory hallucinations, No Visual hallucinations Attention Span Ability: Capable of Focused Attention Memory Description: Grossly Intact Patient Reliability: Reliable Historian Fund of knowledge: Yes abstraction ability, Yes aware of current events Intelligence Estimate: Average Judgment: Limited Insight: Partial
[2017-08-03] MEDS: Melatonin 3 MG TABLET PO SCH (20:57)
[2017-08-04] MEDS: MOM Conc 10 ML UD.LIQ PO SCH (09:30)
[2017-08-04] MEDS: clonazePAM 0.5 MG TABLET PO SCH ×3 (09:31→20:40)
[2017-08-04] MEDS: Pyridoxine (B-6) 50 MG TABLET PO SCH (09:31)
--- NOTE | 2017-08-04 15:44 | Psychiatry Progress Note ---
Date of Encounter: 08/04/17 Time of Encounter: 15:30 Subjective Interval history: Patient seen for follow-up with nursing staff. She is steady on her feet and not showing any dyskinetic movements. She is dressed and groomed appropriately she will continue to be endorsing suicidal ideation and starving herself to . She continued to induce vomiting after taking any food or liquids. She was advised that if her electrolyte balance shows deficiency and problems that she may need medical attention to stabilize her electrolytes and other vital functions. She is showing no interest in therapy or treatment continued to be focused on her wish to delusional and her mother. I shared with the nursing staff that placement in [facility] may be explored during her probation hearing in view of her lack of cooperation or response to treatment. Review of Systems Psychiatric: Reports: depression, abnormal sleep pattern, suicidal ideation, change in appetite, memory loss, hopelessness Results - Vital Signs Vital Signs: Temp Pulse Resp BP Pulse Ox 97.4 F L 93 16 94/70 98 08/04/17 09:00 08/04/17 09:00 08/04/17 09:00 08/04/17 09:00 07/29/17 05:47 - Labs Labs: Laboratory Results - last 24 hr 08/03/17 08/03/17 11:39 16:21 Sodium 143 Potassium 4.5 Chloride 108 H Carbon Dioxide 28 BUN 13 Creatinine 0.89 Est GFR ( Amer) > 60 Est GFR (Non-Af Amer) > 60 BUN/Creatinine Ratio 15 Glucose 95 Calculated Osmolality 296 Calcium 9.5 Total Bilirubin 0.3 AST 23 ALT 13 Alkaline Phosphatase 28 L Serum Total Protein 6.3 L Albumin 4.0 Globulin 2.3 L Albumin/Globulin Ratio 1.7 TSH Cancelled 8.940 H - Impressions ITS Impressions Abdomen/Pelvis CT 07/30/17 21:41 IMPRESSION: 1. No acute findings within the abdomen or pelvis. No evidence of obstructive uropathy. Mild diffuse colonic stool burden with no acute inflammatory changes. 2. No CT evidence of appendicitis. 3. Previous cholecystectomy and hysterectomy. D/ / 07/30/2017 22:37:10 Suresh Castellanos MD / stephy Interpreting Provider: Suresh Castellanos MD Assessment and Plan (1) Major depressive disorder, recurrent severe without psychotic features Current visit: Yes Status: Acute Plan: Continue hospitalization, Close observation, Suicide Precautions per unit protocol, Encourage participation in unit milieu, Group Therapy, Monitor sleep, Monitor appetite Risks, benefits, side effects, alternatives discussed w/pt: Yes Patient agreeable to treatment: Yes (2) Anorexia nervosa, restricting type, extreme Current visit: Yes Status: Acute Plan: Continue hospitalization, Close observation, Suicide Precautions per unit protocol, Encourage participation in unit milieu, Group Therapy, Monitor sleep, Monitor appetite Additional Plan: Patient is encouraged to accept protein supplements. Staff were observed patient for one hour after intake to prevent induce vomiting. Risks, benefits, side effects, alternatives discussed w/pt: Yes Patient agreeable to treatment: Yes Consult Discharge Plan - Plan Referrals: [facility] [Outside] - 08/09/17 4:30 pm (The above appointment is with Cuong Pinto for outpatient psychiatric assessment and medication management services. You will also see her counselor, Graham, on 2017 at 3:00 PM. Office staff will contact you if the cancellation occurs that would allow you to be seen sooner. Additionally, case management services will be assigned after meeting with your psychiatric prescriber.) Edelmira Mann CNP [Advanced Practice Nurse] - 08/11/17 11:20 am (The above appointment is with Edelmira Mann for primary healthcare and medication management services. ) Psychiatry Exam - Constitutional Vitals: Temp Pulse Resp BP Pulse Ox 97.4 F L 93 16 94/70 98 08/04/17 09:00 08/04/17 09:00 08/04/17 09:00 08/04/17 09:00 07/29/17 05:47 General appearance: age & developmentally appropriate, well-groomed, malnourished, thin - Musculoskeletal Gait: normal Station: relaxed Strength & Tone: normal for patient - Psychiatric Patient Orientation: Yes Person, Yes Time, Yes Place Level of alertness: Alert Behavior: calm, cooperative Psychomotor activity: Slowed Eye Contact: Minimal Contact Mood Description: Depressed Affect description: congruent with mood, constricted Speech Volume: Soft/Quiet Speech pattern: normal rate, normal rhythm, normal tone, fluent, spontaneous Language & Vocabulary: consistent with education Thought Process: Linear, Goal Oriented Thought Content: Yes Suicidal ideation, No Homicidal ideation, No Overt delusions, Yes Somatic delusion, Yes Obsessive thoughts Perceptual Disturbances: No Auditory hallucinations, No Visual hallucinations Attention Span Ability: Capable of Focused Attention Memory Description: Grossly Intact Patient Reliability: Reliable Historian Fund of knowledge: Yes abstraction ability, Yes aware of current events Intelligence Estimate: Average Judgment: Limited Insight: Partial
[2017-08-04] MEDS: Melatonin 3 MG TABLET PO SCH (20:40)
[2017-08-05] MEDS: clonazePAM 0.5 MG TABLET PO SCH ×3 (09:38→22:24)
[2017-08-05] MEDS: MOM Conc 10 ML UD.LIQ PO SCH (09:38)
[2017-08-05] MEDS: Pyridoxine (B-6) 50 MG TABLET PO SCH (09:39)
--- NOTE | 2017-08-05 13:34 | Psychiatry Progress Note ---
Date of Encounter: 08/05/17 Time of Encounter: 13:31 Subjective Interval history: Patient was discussed with the nursing staff and records were reviewed. [facility]. Staff report patient continued to refuse to eat or drink, but inconsistently she consumed protein supplements ensure. Refuse other meals, continued to endorse suicidal ideation and plan to starve herself to . She was advised on changes in her labs due to malnutrition including low-protein and electrolyte changes but she would not respond to the dose discussions. No movements disorder noted today and yesterday and patient is steady on her feet. Review of Systems Psychiatric: Reports: depression, abnormal sleep pattern, suicidal ideation, change in appetite, memory loss, hopelessness Results - Vital Signs Vital Signs: Temp Pulse Resp BP Pulse Ox 96.2 F L 88 16 106/71 98 08/05/17 09:00 08/05/17 09:00 08/05/17 09:00 08/05/17 09:00 07/29/17 05:47 - Impressions ITS Impressions Abdomen/Pelvis CT 07/30/17 21:41 IMPRESSION: 1. No acute findings within the abdomen or pelvis. No evidence of obstructive uropathy. Mild diffuse colonic stool burden with no acute inflammatory changes. 2. No CT evidence of appendicitis. 3. Previous cholecystectomy and hysterectomy. D/ / 07/30/2017 22:37:10 Suresh Castellanos MD / stephy Interpreting Provider: Suresh Castellanos MD Assessment and Plan (1) Major depressive disorder, recurrent severe without psychotic features Current visit: Yes Status: Acute Plan: Continue hospitalization, Close observation, Suicide Precautions per unit protocol, Encourage participation in unit milieu, Group Therapy, Monitor sleep, Monitor appetite Additional Plan: [facility] in view of the patient refusing all treatments and continuation of suicidal ideation and attempts to starve herself. Risks, benefits, side effects, alternatives discussed w/pt: Yes Patient agreeable to treatment: Yes (2) Anorexia nervosa, restricting type, extreme Current visit: Yes Status: Acute Plan: Continue hospitalization, Close observation, Suicide Precautions per unit protocol, Encourage participation in unit milieu, Group Therapy, Monitor sleep, Monitor appetite Risks, benefits, side effects, alternatives discussed w/pt: Yes Patient agreeable to treatment: Yes Consult Discharge Plan - Plan Referrals: [facility] [Outside] - 08/09/17 4:30 pm (The above appointment is with Cuong Pinto for outpatient psychiatric assessment and medication management services. You will also see her counselor, Graham, on 2017 at 3:00 PM. Office staff will contact you if the cancellation occurs that would allow you to be seen sooner. Additionally, case management services will be assigned after meeting with your psychiatric prescriber.) Edelmira Mann CNP [Advanced Practice Nurse] - 08/11/17 11:20 am (The above appointment is with Edelmira Mann for primary healthcare and medication management services. ) Psychiatry Exam - Constitutional Vitals: Temp Pulse Resp BP Pulse Ox 96.2 F L 88 16 106/71 98 08/05/17 09:00 08/05/17 09:00 08/05/17 09:00 08/05/17 09:00 07/29/17 05:47 General appearance: age & developmentally appropriate, well-groomed, malnourished, thin Additional observations: Patient was seen earlier today in the dining room socializing with other patients, she was steady on her feet and able to manage independently , she was not lethargic or agitated. - Musculoskeletal Gait: normal Station: relaxed Strength & Tone: normal for patient - Psychiatric Patient Orientation: Yes Person, Yes Time, Yes Place Level of alertness: Alert Behavior: calm, cooperative Psychomotor activity: Normal Eye Contact: Maintains Eye Contact Mood Description: Euthymic/stable Affect description: congruent with mood, full range Speech Volume: Normal Speech pattern: normal rate, normal rhythm, normal tone, fluent, spontaneous Language & Vocabulary: consistent with education Thought Process: Linear, Goal Oriented Thought Content: Yes Suicidal ideation, No Homicidal ideation, No Overt delusions Perceptual Disturbances: No Auditory hallucinations, No Visual hallucinations Attention Span Ability: Capable of Focused Attention Memory Description: Grossly Intact Patient Reliability: Reliable Historian Fund of knowledge: Yes abstraction ability, Yes aware of current events Intelligence Estimate: Average Judgment: Limited Insight: Partial
[2017-08-05 14:38] LABS: Alanine Aminotransferase 16 Units/L (7-52); Albumin 4.2 g/dL (3.5-5.7); Albumin/Globulin Ratio 1.4 (1.1-2.2); Alkaline Phosphatase 32 Units/L (34-104); Aspartate Amino Transferase 27 Units/L (13-39); BUN/Creatinine Ratio 13 (6-26); Bilirubin,Total 0.4 mg/dL (0.3-1.0); Blood Urea Nitrogen 13 mg/dL (6-20); Calcium 9.9 mg/dL (8.6-10.3); Carbon Dioxide 26 mEq/L (23-29); Chloride 108 mEq/L (98-107); Glucose 93 mg/dL (70-105); Osmolality,Calculated 296 (280-300); Potassium 4.8 mEq/L (3.5-5.1); Sodium 143 mEq/L (136-145); Total Protein 7.2 g/dL (6.4-8.9); eGFR For African Americans > 60 (> 60); eGFR For Non-African Americans 58 (> 60)
[2017-08-05] MEDS: Melatonin 3 MG TABLET PO SCH (23:09)
[2017-08-06] MEDS: MOM Conc 10 ML UD.LIQ PO SCH (08:43)
[2017-08-06] MEDS: clonazePAM 0.5 MG TABLET PO SCH ×3 (08:43→20:40)
[2017-08-06] MEDS: Pyridoxine (B-6) 50 MG TABLET PO SCH (08:43)
--- NOTE | 2017-08-06 13:53 | Psychiatry Progress Note ---
Date of Encounter: 08/06/17 Time of Encounter: 13:48 Subjective Interval history: Patient was seen for follow-up with nursing staff. Case discussed with nursing staff and patient. Staff report patient is showing some improvement her oral intake is increasing including protein supplements and partial meals and fluids , induces vomiting was not observed in the last 24 hours. However patient continued to endorse suicidal ideation and starvation to . Today she is more interactive, more expressive, affect is bright, not crying and asking questions. She was educated about treatment plan and parameters that we track including food and fluid intake, daily weights, medication compliance and participation in groups and activities. Review of Systems Psychiatric: Reports: depression, abnormal sleep pattern, suicidal ideation, change in appetite, memory loss, hopelessness Results - Vital Signs Vital Signs: Temp Pulse Resp BP Pulse Ox 98.7 F 94 16 99/66 98 08/06/17 09:00 08/06/17 09:00 08/06/17 09:00 08/06/17 09:00 07/29/17 05:47 - Labs Labs: Laboratory Results - last 24 hr 08/05/17 13:34 Sodium 143 Potassium 4.8 Chloride 108 H Carbon Dioxide 26 BUN 13 Creatinine 1.03 Est GFR ( Amer) > 60 Est GFR (Non-Af Amer) 58 L BUN/Creatinine Ratio 13 Glucose 93 Calculated Osmolality 296 Calcium 9.9 Total Bilirubin 0.4 AST 27 ALT 16 Alkaline Phosphatase 32 L Serum Total Protein 7.2 Albumin 4.2 Globulin 3.0 Albumin/Globulin Ratio 1.4 - Impressions ITS Impressions Abdomen/Pelvis CT 07/30/17 21:41 IMPRESSION: 1. No acute findings within the abdomen or pelvis. No evidence of obstructive uropathy. Mild diffuse colonic stool burden with no acute inflammatory changes. 2. No CT evidence of appendicitis. 3. Previous cholecystectomy and hysterectomy. D/ / 07/30/2017 22:37:10 Suresh Castellanos MD / stephy Interpreting Provider: Suresh Castellanos MD Assessment and Plan (1) Major depressive disorder, recurrent severe without psychotic features Current visit: Yes Status: Acute Plan: Continue hospitalization, Close observation, Suicide Precautions per unit protocol, Encourage participation in unit milieu, Group Therapy, Monitor sleep, Monitor appetite Risks, benefits, side effects, alternatives discussed w/pt: Yes Patient agreeable to treatment: Yes (2) Anorexia nervosa, restricting type, extreme Current visit: Yes Status: Acute Plan: Continue hospitalization, Close observation, Suicide Precautions per unit protocol, Encourage participation in unit milieu, Group Therapy, Monitor sleep, Monitor appetite Risks, benefits, side effects, alternatives discussed w/pt: Yes Patient agreeable to treatment: Yes Consult Discharge Plan - Plan Referrals: [facility] [Outside] - 08/09/17 4:30 pm (The above appointment is with Cuong Pinto for outpatient psychiatric assessment and medication management services. You will also see her counselor, Graham, on 2017 at 3:00 PM. Office staff will contact you if the cancellation occurs that would allow you to be seen sooner. Additionally, case management services will be assigned after meeting with your psychiatric prescriber.) Edelmira Mann, DYNAMICIST [Advanced Practice Nurse] - 08/11/17 11:20 am (The above appointment is with Edelmira Mann for primary healthcare and medication management services. ) Psychiatry Exam - Constitutional Vitals: Temp Pulse Resp BP Pulse Ox 98.7 F 94 16 99/66 98 08/06/17 09:00 08/06/17 09:00 08/06/17 09:00 08/06/17 09:00 07/29/17 05:47 General appearance: age & developmentally appropriate, well-groomed, malnourished, thin - Musculoskeletal Gait: normal Station: relaxed Strength & Tone: normal for patient - Psychiatric Patient Orientation: Yes Person, Yes Time, Yes Place Level of alertness: Alert Behavior: calm, cooperative, anxious, guarded Psychomotor activity: Normal Eye Contact: Maintains Eye Contact Mood Description: Euthymic/stable Affect description: congruent with mood, full range Speech Volume: Normal Speech pattern: normal rate, normal rhythm, normal tone, fluent, spontaneous Language & Vocabulary: consistent with education Thought Process: Linear, Goal Oriented Thought Content: Yes Suicidal ideation, No Homicidal ideation, No Overt delusions Perceptual Disturbances: No Auditory hallucinations, No Visual hallucinations Attention Span Ability: Capable of Focused Attention Memory Description: Grossly Intact Patient Reliability: Reliable Historian Fund of knowledge: Yes abstraction ability, Yes aware of current events Intelligence Estimate: Average Judgment: Limited Insight: Partial
[2017-08-06] MEDS: Melatonin 3 MG TABLET PO SCH (20:41)
[2017-08-07] MEDS: MOM Conc 10 ML UD.LIQ PO SCH (08:24)
[2017-08-07] MEDS: Pyridoxine (B-6) 50 MG TABLET PO SCH (08:24)
[2017-08-07] MEDS: clonazePAM 0.5 MG TABLET PO SCH ×3 (08:24→21:08)
[2017-08-07] MEDS: hydrOXYzine pamoate 25 MG CAPSULE PO PRN (11:43)
--- NOTE | 2017-08-07 15:38 | Psychiatry Progress Note ---
Date of Encounter: 08/07/17 Time of Encounter: 15:30 Subjective Interval history: The patient reports being extremely depressed. She is aware that the she could be involuntariely hospitalized and go to [facility]. She is aware of her limitations. She is tryng to cooperate with her diet and weights. She has labs repeated. She has TD, and has been on clonazepam. She notes some movements are still troublesome. She has not started Ingrezza or Austedo as they are non-formulary. Review of Systems Psychiatric: Reports: depression, abnormal sleep pattern, suicidal ideation, change in appetite, memory loss, difficulty concentrating, hopelessness Results - Vital Signs Vital Signs: Temp Pulse Resp BP Pulse Ox 98.5 F 85 16 96/65 98 08/07/17 09:00 08/07/17 09:00 08/07/17 09:00 08/07/17 09:00 07/29/17 05:47 - Impressions ITS Impressions Abdomen/Pelvis CT 07/30/17 21:41 IMPRESSION: 1. No acute findings within the abdomen or pelvis. No evidence of obstructive uropathy. Mild diffuse colonic stool burden with no acute inflammatory changes. 2. No CT evidence of appendicitis. 3. Previous cholecystectomy and hysterectomy. D/ / 07/30/2017 22:37:10 Suresh Castellanos MD / stephy Interpreting Provider: Suresh Castellanos MD Assessment and Plan (1) Major depressive disorder, recurrent severe without psychotic features Current visit: Yes Status: Acute Plan: Continue hospitalization, Close observation, Encourage participation in unit milieu, Group Therapy Risks, benefits, side effects, alternatives discussed w/pt: Yes Patient agreeable to treatment: Yes (2) Anorexia nervosa, restricting type, extreme Current visit: Yes Status: Acute Plan: Monitor appetite Risks, benefits, side effects, alternatives discussed w /pt: Yes Patient agreeable to treatment: Yes (3) Hypothyroidism Current visit: Yes Status: Chronic Plan: Continue hospitalization Risks, benefits, side effects, alternatives discussed w/pt: Yes Patient agreeable to treatment: Yes Qualifiers: Hypothyroidism type: due to medication Qualified Code(s): E03.2 - Hypothyroidism due to medicaments and other exogenous substances (4) Suicidal ideation Current visit: Yes Status: Acute Plan: Continue hospitalization, Suicide Precautions per unit protocol, Secure weapons Risks, benefits, side effects, alternatives discussed w/pt: Yes Patient agreeable to treatment: Yes (5) Tardive dyskinesia Current visit: Yes Status: Acute Plan: Continue hospitalization, Encourage participation in unit milieu Risks, benefits, side effects, alternatives discussed w/pt: Yes Patient agreeable to treatment: Yes Consult Discharge Plan - Plan Referrals: [facility] [Outside] - 08/09/17 4:30 pm (The above appointment is with Cuong Pinto for outpatient psychiatric assessment and medication management services. You will also see her counselor, Graham, on 2017 at 3:00 PM. Office staff will contact you if the cancellation occurs that would allow you to be seen sooner. Additionally, case management services will be assigned after meeting with your psychiatric prescriber.) Edelmira Mann, PARKING PATROLLER [Advanced Practice Nurse] - 08/11/17 11:20 am (The above appointment is with Edelmira Mann for primary healthcare and medication management services. ) Psychiatry Exam - Constitutional Vitals: Temp Pulse Resp BP Pulse Ox 98.5 F 85 16 96/65 98 08/07/17 09:00 08/07/17 09:00 08/07/17 09:00 08/07/17 09:00 07/29/17 05:47 General appearance: disheveled, thin - Musculoskeletal Gait: slow Station: stooped Strength & Tone: abnormal extension, abnormal flexion - Psychiatric Patient Orientation: Yes Person, Yes Time, Yes Place Level of alertness: Alert Behavior: calm Psychomotor activity: Normal Eye Contact: Maintains Eye Contact Mood Description: Depressed Affect description: congruent with mood Speech Volume: Soft/Quiet Speech pattern: normal rate, inappropriate to situation Language & Vocabulary: consistent with education Thought Process: Intact Thought Content: Yes Suicidal ideation, Yes Phobic Attention Span Ability: Unable to Focus Memory Description: Grossly Intact Patient Reliability: Questionable Historian Fund of knowledge: Yes average Intelligence Estimate: Average Judgment: Limited Insight: Minimal
[2017-08-07] MEDS: diazePAM 5 MG TABLET PO PRN (21:08)
[2017-08-07] MEDS: Melatonin 3 MG TABLET PO SCH (21:08)
[2017-08-08 08:21] LABS: Alanine Aminotransferase 12 Units/L (7-52); Albumin 3.5 g/dL (3.5-5.7); Albumin/Globulin Ratio 1.3 (1.1-2.2); Alkaline Phosphatase 29 Units/L (34-104); Aspartate Amino Transferase 16 Units/L (13-39); BUN/Creatinine Ratio 20 (6-26); Bilirubin,Total 0.3 mg/dL (0.3-1.0); Blood Urea Nitrogen 17 mg/dL (6-20); Calcium 8.9 mg/dL (8.6-10.3); Carbon Dioxide 29 mEq/L (23-29); Chloride 106 mEq/L (98-107); Globulin 2.6 g/dL (2.4-3.5); Glucose 105 mg/dL (70-105); Osmolality,Calculated 296 (280-300); Potassium 4.3 mEq/L (3.5-5.1); Sodium 142 mEq/L (136-145); Total Protein 6.1 g/dL (6.4-8.9); eGFR For African Americans > 60 (> 60); eGFR For Non-African Americans > 60 (> 60)
[2017-08-08] MEDS: Pyridoxine (B-6) 50 MG TABLET PO SCH (08:23)
[2017-08-08] MEDS: MOM Conc 10 ML UD.LIQ PO SCH (08:23)
[2017-08-08] MEDS: clonazePAM 0.5 MG TABLET PO SCH ×3 (08:23→20:21)
--- NOTE | 2017-08-08 11:51 | Psychiatry Progress Note ---
Date of Encounter: 08/08/17 Time of Encounter: 11:30 Subjective Interval history: The patient was seen today. She is complying with her eating. She has finished her eyes and nose. Her laboratory studies have been received. They are generally within normal limits. She has begun taking the Synthroid again and her TSH was most recently at 8.4. However further adjustment of the thyroid status may be necessary. The patient has probate hearing today and 1:30. She does not want to go to [facility] or another facility and would like to get better and go home. However her hospitalization is been longer due to anorexia nervosa and weight loss. The patient is now at a reasonable target weight. The patient's tardive dyskinesia remains prominent but not disabling is 4. Nonetheless I continue to recommend new are FDA approved medicines for the treatment. Patient is still mildly distressed by the movements still has some trouble with her dentures. Voluntary hospitalization is being sought to help patient achieve her goals and to recognize the need for healthy eating. The patient's course of anorexia nervosa would have led to medical compromise but hospitalization is necessary to prevent this. The patient is able to verbalize that she should not restrict binge purge or use laxatives or other methods to keep from dating weight. I recommended that she continue to review her weight in kilograms instead pounds as she is focused on an ideal body weight which is unhealthy for her Review of Systems Gastrointestinal: Reports: constipation Neurological: Reports: other (movements) Psychiatric: Reports: depression, abnormal sleep pattern, suicidal ideation, change in appetite, memory loss, difficulty concentrating, hopelessness Results - Vital Signs Vital Signs: Temp Pulse Resp BP Pulse Ox 97.5 F L 98 16 106/70 98 08/08/17 08:21 08/08/17 08:21 08/08/17 08:21 08/08/17 08:21 07/29/17 05:47 - Labs Labs: Laboratory Results - last 24 hr 08/08/17 07:36 Sodium 142 Potassium 4.3 Chloride 106 Carbon Dioxide 29 BUN 17 Creatinine 0.86 Est GFR ( Amer) > 60 Est GFR (Non-Af Amer) > 60 BUN/Creatinine Ratio 20 Glucose 105 Calculated Osmolality 296 Calcium 8.9 Total Bilirubin 0.3 AST 16 ALT 12 Alkaline Phosphatase 29 L Serum Total Protein 6.1 L Albumin 3.5 Globulin 2.6 Albumin/Globulin Ratio 1.3 - Impressions ITS Impressions Abdomen/Pelvis CT 07/30/17 21:41 IMPRESSION: 1. No acute findings within the abdomen or pelvis. No evidence of obstructive uropathy. Mild diffuse colonic stool burden with no acute inflammatory changes. 2. No CT evidence of appendicitis. 3. Previous cholecystectomy and hysterectomy. D/ / 07/30/2017 22:37:10 Suresh Castellanos MD / stephy Interpreting Provider: Suresh Castellanos MD Assessment and Plan (1) Major depressive disorder, recurrent severe without psychotic features Current visit: Yes Status: Acute Plan: Continue hospitalization, Close observation, Monitor sleep Risks, benefits, side effects, alternatives discussed w/pt: Yes Patient agreeable to treatment: Yes (2) Anorexia nervosa, restricting type, extreme Current visit: Yes Status: Acute Plan: Continue hospitalization, Close observation, Suicide Precautions per unit protocol, Monitor sleep, Monitor appetite Risks, benefits, side effects, alternatives discussed w/pt: Yes Patient agreeable to treatment: Yes (3) Hypothyroidism Current visit: Yes Status: Chronic Plan: Continue hospitalization Risks, benefits, side effects, alternatives discussed w/pt: Yes Patient agreeable to treatment: Yes Qualifiers: Hypothyroidism type: due to medication Qualified Code(s): E03.2 - Hypothyroidism due to medicaments and other exogenous substances (4) Suicidal ideation Current visit: Yes Status: Acute Plan: Suicide Precautions per unit protocol, Secure weapons Risks, benefits, side effects, alternatives discussed w/pt: Yes Patient agreeable to treatment : Yes (5) Tardive dyskinesia Current visit: Yes Status: Acute Plan: Continue hospitalization, Encourage participation in unit milieu Risks, benefits, side effects, alternatives discussed w/pt: Yes Patient agreeable to treatment: Yes Consult Discharge Plan - Plan Referrals: [facility] [Outside] - 08/22/17 3:00 pm (The above appointment is with Graham for mental health counseling services. You will also see Cuong Pinto for outpatient psychiatric assessment and medication management services on 09/06/2017 at 2:30pm. Additionally, case management services will be assigned after meeting with your counselor. The above appointment(s) reflect first availability. You may contact the office regularly to check for cancellations that may allow you to be seen sooner.) Edelmira Mann, KARIN [Advanced Practice Nurse] - 08/25/17 10:00 am (The above appointment is with Edelmira Mann for primary healthcare and medication management services. ) Psychiatry Exam - Constitutional Vitals: Temp Pulse Resp BP Pulse Ox 97.5 F L 98 16 106/70 98 08/08/17 08:21 08/08/17 08:21 08/08/17 08:21 08/08/17 08:21 07/29/17 05:47 General appearance: well-groomed, well-nourished, thin - Musculoskeletal Gait: other Station: shaky Strength & Tone: abnormal extension, abnormal flexion - Psychiatric Patient Orientation: Yes Person, Yes Time, Yes Place, Yes Circumstance Level of alertness: Alert Behavior: anxious Psychomotor activity: Abnormal movements Eye Contact: Maintains Eye Contact Mood Description: Anxious Affect description: dysphoric Speech Volume: Soft/Quiet Speech pattern: normal rate, normal rhythm Language & Vocabulary: consistent with education Thought Process: Logical Thought Content: Yes Preoccupation, Yes Guilt Attention Span Ability: Capable of Sustained Attention Memory Description: Immediate Intact, Remote Intact Patient Reliability: Questionable Historian Fund of knowledge: Yes average Intelligence Estimate: Average Judgment: Limited Insight: Minimal
[2017-08-08] MEDS: Melatonin 3 MG TABLET PO SCH (20:21)
[2017-08-08] MEDS: hydrOXYzine pamoate 25 MG CAPSULE PO PRN (21:33)
[2017-08-09] MEDS: MOM Conc 10 ML UD.LIQ PO SCH (09:07)
[2017-08-09] MEDS: Pyridoxine (B-6) 50 MG TABLET PO SCH (09:07)
[2017-08-09] MEDS: clonazePAM 0.5 MG TABLET PO SCH ×2 (09:07→20:23)
--- NOTE | 2017-08-09 12:32 | Psychiatry Progress Note ---
Date of Encounter: 08/09/17 Time of Encounter: 10:30 Subjective Interval history: The patient has been eating well and has cooperative with daily weights. She has been groomed and dressed. She notes that Seroquel is helpful for sleep and probably mood but she has not sure that sertraline helpful for mood. The patient will follow-up with Dr. Hutchins And the counselor named ELOISA. The patient has expressed a desire to go home. She realizes that she must cooperate with her at eating and harper routine. She notes that her daughter will have a birthday coming up and this will be her chance to babyInvaciot grandkids. The patient has asked about ECT. ECT was considered earlier in the stay but the patient has improving mood. She was advised that ECT can be used she has worsening movement disorder worsening depression and suicidal ideation. However these are not present at this time. The patient has had a court hearing yesterday the court found that the patient required involuntary hospitalization and involuntary medication patient has cooperated in general with medication administration. But included in that or labs and cooperation with daily weights and other measures. The patient recognizes this and the court hearing. She does not want to go to [facility]. She is fearful of the possibility of having to be sent there and for the long length of stay. 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 These are cramping movement of the hands with some period of immobility. The patient is no longer on Cogentin or benztropine because this can worsen the dyskinetic movements. She has been placed on vitamin D and vitamin B6 while not recommended for TD these are well tolerated and could act as some treatment. They are in therapeutic range The patient agrees to a taper of clonazepam. This is because she needs to be on a stable but low dose of clonazepam. The patient's tendency to be active and engaged in household activities suggest that a lower dose of clonazepam may be helpful. This may be balanced with the worsening of tardive dyskinesia she is bothered by oral buccal movements lingual movements ill fitting dentures distal dyskinetic movements truncal and neck movements. The movements of chorea athetosis and dystonia were explained to the patient. This patient is a good candidate for ingrezza. This medicine can be started on an outpatient basis I previously submitted the paperwork. Her aims score at that time was 33. Prior to this the game score would have been higher and the patient had respiratory involvement suggesting diaphragmatic dyskinesia. At this point the scores improved with the addition of clonazepam but sedation and in coordination could be of concern concern. The patient's dystonia may require readministration of Cogentin. The one medicine the patient has not been started on for tardive dyskinesias amantadine should begin 100 mg twice a day. The side effects were discussed with the patient Review of Systems Neurological: Reports: abnormal gait, other Psychiatric: Reports: depression, abnormal sleep pattern, suicidal ideation, change in appetite, memory loss, difficulty concentrating, hopelessness Results - Vital Signs Vital Signs: Temp Pulse Resp BP Pulse Ox 97.8 F 84 16 125/71 98 08/09/17 09:00 08/09/17 09:00 08/09/17 09:00 08/09/17 09:00 07/29/17 05:47 - Impressions ITS Impressions Abdomen/Pelvis CT 07/30/17 21:41 IMPRESSION: 1. No acute findings within the abdomen or pelvis. No evidence of obstructive uropathy. Mild diffuse colonic stool burden with no acute inflammatory changes. 2. No CT evidence of appendicitis. 3. Previous cholecystectomy and hysterectomy. D/ / 07/30/2017 22:37:10 Suresh Castellanos MD / stephy Interpreting Provider: Suresh Castellanos MD Assessment and Plan (1) Major depressive disorder, recurrent severe without psychotic features Current visit: Yes Status: Acute Plan: Continue hospitalization, Close observation, Encourage participation in unit milieu, Monitor sleep Risks, benefits, side effects, alternatives discussed w/pt: Yes Patient agreeable to treatment: Yes (2) Anorexia nervosa, restricting type, extreme Current visit: Yes Status: Acute Plan: Continue hospitalization, Suicide Precautions per unit protocol, Monitor appetite Risks, benefits, side effects, alternatives discussed w/pt: Yes Patient agreeable to treatment: Yes (3) Hypothyroidism Current visit: Yes Status: Chronic Plan: Monitor appetite Risks, benefits, side effects, alternatives discussed w /pt: Yes Patient agreeable to treatment: Yes Qualifiers: Hypothyroidism type: due to medication Qualified Code(s): E03.2 - Hypothyroidism due to medicaments and other exogenous substances (4) Suicidal ideation Current visit: Yes Status: Acute Plan: Suicide Precautions per unit protocol, Secure weapons Risks, benefits, side effects, alternatives discussed w/pt: Yes Patient agreeable to treatment : Yes (5) Tardive dyskinesia Current visit: Yes Status: Acute Plan: Continue hospitalization Risks, benefits, side effects, alternatives discussed w/pt: Yes Patient agreeable to treatment: Yes Consult Discharge Plan - Plan Referrals: [facility] [Outside] - 08/22/17 3:00 pm (The above appointment is with Stevenson for mental health counseling services. You will also see Cuong Pinto for outpatient psychiatric assessment and medication management services on 09/06/2017 at 2:30pm. Additionally, case management services will be assigned after meeting with your counselor. The above appointment(s) reflect first availability. You may contact the office regularly to check for cancellations that may allow you to be seen sooner.) Edelmira Mann CNP [Advanced Practice Nurse] - 08/25/17 10:00 am (The above appointment is with Edelmira Mann for primary healthcare and medication management services. ) Psychiatry Exam - Constitutional Vitals: Temp Pulse Resp BP Pulse Ox 97.8 F 84 16 125/71 98 08/09/17 09:00 08/09/17 09:00 08/09/17 09:00 08/09/17 09:00 07/29/17 05:47 General appearance: age & developmentally appropriate, thin - Musculoskeletal Gait: normal Station: other Strength & Tone: abnormal extension, abnormal flexion, other - Psychiatric Patient Orientation: Yes Person, Yes Time, Yes Place, Yes Circumstance Level of alertness: Alert Behavior: anxious Psychomotor activity: Abnormal movements Eye Contact: Maintains Eye Contact Mood Description: Depressed Affect description: dysphoric, anxious Speech Volume: Soft/Quiet Speech pattern: normal rate, normal rhythm Language & Vocabulary: consistent with education Thought Process: Intact Thought Content: Yes Suicidal ideation, Yes Obsessive thoughts Attention Span Ability: Capable of Focused Attention Memory Description: Grossly Intact Patient Reliability: Questionable Historian Fund of knowledge: Yes average Intelligence Estimate: Average Judgment: Limited Insight: Minimal
[2017-08-09] MEDS: diazePAM 5 MG TABLET PO PRN (16:04)
[2017-08-09] MEDS: hydrOXYzine pamoate 25 MG CAPSULE PO PRN (19:09)
[2017-08-09] MEDS: Melatonin 3 MG TABLET PO SCH (20:24)
[2017-08-10] MEDS: MOM Conc 10 ML UD.LIQ PO SCH (08:15)
[2017-08-10] MEDS: clonazePAM 0.5 MG TABLET PO SCH ×2 (08:16→21:18)
[2017-08-10] MEDS: Pyridoxine (B-6) 50 MG TABLET PO SCH (08:16)
--- NOTE | 2017-08-10 11:07 | Psychiatry Progress Note ---
Date of Encounter: 08/10/17 Time of Encounter: 11:00 Subjective Interval history: She came in and has reported that depression is been a problem. He had an argument with those in her home. The patient reports no suicidal ideation or she is irritated at her home situation she plans to go home. In her home she reports that she has 3 guns. These guns or not loaded there kept under lock and daly and she does not have immediate access to them. Nonetheless the patient understands the risk of having a gun in the home with episodes of depression with suicidal ideation in the past. The patient wishes to continue her current ownership. The patient said that if she does not go home she will go to her aunt's house. This is an aunt by marriage. Nonetheless she is feeling that she can resolve some of the differences. The patient reports continued anxiety and rocking. Overall she has been able to tolerate the medicine amantadine that has been added. She still is troubled by the movements of tardive dyskinesia as well as episodes of dystonia. Clonazepam was reduced to 0.5 mg twice a day in order to get twice a day dosing regimen going for the patient. The patient did not wish to reduce clonazepam further as she felt that this was helpful for anxiety she did not report significant sedation and coordination unsteadiness. Nonetheless the patient's movements are noticeable to those in conversation and can be seen activation such as walking. The oral buccal movements of disturbance to her. The dentures are loose and somewhat painful. Oral gel has not been helpful. I did recommend boiled clove which is not on formulary but may be available. Ginkgo biloba is not formulary Review of Systems Psychiatric: Reports: depression, anxiety, abnormal sleep pattern, suicidal ideation, change in appetite, memory loss, difficulty concentrating Results - Vital Signs Vital Signs: Temp Pulse Resp BP Pulse Ox 97.1 F L 87 14 100/71 97 08/10/17 09:00 08/10/17 09:00 08/10/17 09:00 08/10/17 09:00 08/09/17 19:48 - Impressions ITS Impressions Abdomen/Pelvis CT 07/30/17 21:41 IMPRESSION: 1. No acute findings within the abdomen or pelvis. No evidence of obstructive uropathy. Mild diffuse colonic stool burden with no acute inflammatory changes. 2. No CT evidence of appendicitis. 3. Previous cholecystectomy and hysterectomy. D/ / 07/30/2017 22:37:10 Suresh Castellanos MD / stephy Interpreting Provider: Suresh Castellanos MD Assessment and Plan (1) Hypothyroidism Current visit: Yes Status: Chronic Risks, benefits, side effects, alternatives discussed w/pt: Yes Patient agreeable to treatment: Yes Qualifiers: Hypothyroidism type: due to medication Qualified Code(s): E03.2 - Hypothyroidism due to medicaments and other exogenous substances (2) Anorexia nervosa, restricting type, extreme Current visit: Yes Status: Acute Plan: Continue hospitalization, Close observation, Encourage participation in unit milieu, Monitor sleep, Monitor appetite Risks, benefits, side effects, alternatives discussed w/pt: Yes Patient agreeable to treatment: Yes (3) Suicidal ideation Current visit: Yes Status: Acute Plan: Continue hospitalization, Close observation, Secure weapons, Family/ Supportive other meeting Risks, benefits, side effects, alternatives discussed w/pt: Yes Patient agreeable to treatment: Yes (4) Major depressive disorder, recurrent severe without psychotic features Current visit: Yes Status: Acute Plan: Continue hospitalization, Close observation, Encourage participation in unit milieu, Group Therapy Risks, benefits, side effects, alternatives discussed w/pt: Yes Patient agreeable to treatment: Yes (5) Tardive dyskinesia Current visit: Yes Status: Acute Plan: Close observation Risks, benefits, side effects, alternatives discussed w/pt: Yes Patient agreeable to treatment: Yes Consult Discharge Plan - Plan Referrals: [facility] [Outside] - 08/22/17 3:00 pm (The above appointment is with Stevenson for mental health counseling services. You will also see Cuong Pinto for outpatient psychiatric assessment and medication management services on 09/06/2017 at 2:30pm. Additionally, case management services will be assigned after meeting with your counselor. The above appointment(s) reflect first availability. You may contact the office regularly to check for cancellations that may allow you to be seen sooner.) Edelmira Mann, KARIN [Advanced Practice Nurse] - 08/25/17 10:00 am (The above appointment is with Edelmira Mann for primary healthcare and medication management services. ) Psychiatry Exam - Constitutional Vitals: Temp Pulse Resp BP Pulse Ox 97.1 F L 87 14 100/71 97 08/10/17 09:00 08/10/17 09:00 08/10/17 09:00 08/10/17 09:00 08/09/17 19:48 General appearance: age & developmentally appropriate, well-groomed, thin - Musculoskeletal Gait: other Strength & Tone: abnormal extension, abnormal flexion - Psychiatric Patient Orientation: Yes Person, Yes Time, Yes Place, Yes Circumstance Level of alertness: Alert Behavior: anxious Psychomotor activity: Abnormal movements Eye Contact: Maintains Eye Contact Mood Description: Anxious Affect description: dysphoric Speech Volume: Soft/Quiet Speech pattern: normal rate, normal rhythm Language & Vocabulary: consistent with education Thought Process: Intact Thought Content: Yes Obsessive thoughts Attention Span Ability: Capable of Sustained Attention Memory Description: Grossly Intact Patient Reliability: Reliable Historian Fund of knowledge: Yes abstraction ability Intelligence Estimate: Average Judgment: Limited Insight: Minimal
[2017-08-10] MEDS: diazePAM 5 MG TABLET PO PRN (17:00)
[2017-08-10] MEDS: Melatonin 3 MG TABLET PO SCH (21:18)
[2017-08-11] MEDS: MOM Conc 10 ML UD.LIQ PO SCH (08:43)
[2017-08-11] MEDS: Pyridoxine (B-6) 50 MG TABLET PO SCH (08:43)
[2017-08-11] MEDS: clonazePAM 0.5 MG TABLET PO SCH ×2 (08:43→21:11)
[2017-08-11 11:01] LABS: Alanine Aminotransferase 15 Units/L (7-52); Albumin/Globulin Ratio 1.4 (1.1-2.2); Alkaline Phosphatase 27 Units/L (34-104); Aspartate Amino Transferase 21 Units/L (13-39); BUN/Creatinine Ratio 15 (6-26); Bilirubin,Total 0.3 mg/dL (0.3-1.0); Blood Urea Nitrogen 14 mg/dL (6-20); Calcium 9.5 mg/dL (8.6-10.3); Carbon Dioxide 31 mEq/L (23-29); Chloride 105 mEq/L (98-107); Globulin 2.8 g/dL (2.4-3.5); Glucose 89 mg/dL (70-105); Osmolality,Calculated 292 (280-300); Potassium 4.2 mEq/L (3.5-5.1); Sodium 141 mEq/L (136-145); Total Protein 6.8 g/dL (6.4-8.9); eGFR For African Americans > 60 (> 60); eGFR For Non-African Americans > 60 (> 60)
--- NOTE | 2017-08-11 11:58 | Psychiatry Progress Note ---
Date of Encounter: 08/11/17 Time of Encounter: 11:45 Review of Systems Neurological: Reports: other Psychiatric: Reports: depression, anxiety, change in appetite, memory loss, difficulty concentrating Results - Vital Signs Vital Signs: Temp Pulse Resp BP Pulse Ox 98.6 F 78 16 114/78 97 08/11/17 08:59 08/11/17 08:59 08/11/17 08:59 08/11/17 08:59 08/09/17 19:48 - Labs Labs: Laboratory Results - last 24 hr 08/11/17 10:30 Sodium 141 Potassium 4.2 Chloride 105 Carbon Dioxide 31 H BUN 14 Creatinine 0.92 Est GFR ( Amer) > 60 Est GFR (Non-Af Amer) > 60 BUN/Creatinine Ratio 15 Glucose 89 Calculated Osmolality 292 Calcium 9.5 Total Bilirubin 0.3 AST 21 ALT 15 Alkaline Phosphatase 27 L Serum Total Protein 6.8 Albumin 4.0 Globulin 2.8 Albumin/Globulin Ratio 1.4 - Impressions ITS Impressions Abdomen/Pelvis CT 07/30/17 21:41 IMPRESSION: 1. No acute findings within the abdomen or pelvis. No evidence of obstructive uropathy. Mild diffuse colonic stool burden with no acute inflammatory changes. 2. No CT evidence of appendicitis. 3. Previous cholecystectomy and hysterectomy. D/ / 07/30/2017 22:37:10 Suresh Castellanos MD / stephy Interpreting Provider: Suresh Castellanos MD Assessment and Plan (1) Hypothyroidism Current visit: Yes Status: Chronic Plan: Continue hospitalization, Close observation, Monitor sleep, Monitor appetite, Secure weapons Risks, benefits, side effects, alternatives discussed w/pt: Yes Patient agreeable to treatment: Yes Qualifiers: Hypothyroidism type: due to medication Qualified Code(s): E03.2 - Hypothyroidism due to medicaments and other exogenous substances (2) Tardive dyskinesia Current visit: Yes Status: Acute Plan: Continue hospitalization, Close observation, Monitor sleep Risks, benefits, side effects, alternatives discussed w/pt: Yes Patient agreeable to treatment: Yes (3) Anorexia nervosa, restricting type, extreme Current visit: Yes Status: Acute Plan: Continue hospitalization, Monitor appetite, Family/Supportive other meeting Risks, benefits, side effects, alternatives discussed w/pt: Yes Patient agreeable to treatment: Yes (4) Major depressive disorder, recurrent severe without psychotic features Current visit: Yes Status: Acute Risks, benefits, side effects, alternatives discussed w/pt: Yes Patient agreeable to treatment: Yes (5) Suicidal ideation Current visit: Yes Status: Acute Risks, benefits, side effects, alternatives discussed w/pt: Yes Patient agreeable to treatment: Yes Consult Discharge Plan - Plan Referrals: [facility] [Outside] - 08/22/17 3:00 pm (The above appointment is with [facility] for mental health counseling services. You will also see Cuong Pinto for outpatient psychiatric assessment and medication management services on 09/06/2017 at 2:30pm. Additionally, case management services will be assigned after meeting with your counselor. The above appointment(s) reflect first availability. You may contact the office regularly to check for cancellations that may allow you to be seen sooner.) Edelmira Mann CNP [Advanced Practice Nurse] - 08/25/17 10:00 am (The above appointment is with Edelmira Mann for primary healthcare and medication management services. ) Psychiatry Exam - Constitutional Vitals: Temp Pulse Resp BP Pulse Ox 98.6 F 78 16 114/78 97 08/11/17 08:59 08/11/17 08:59 08/11/17 08:59 08/11/17 08:59 08/09/17 19:48 General appearance: age & developmentally appropriate, thin - Musculoskeletal Gait: normal Station: other Strength & Tone: mild weakness, abnormal extension, abnormal flexion - Psychiatric Patient Orientation: Yes Person, Yes Time, Yes Place Level of alertness: Alert Behavior: anxious, restless Psychomotor activity: Abnormal movements Eye Contact: Maintains Eye Contact Mood Description: Anxious Affect description: dysphoric Speech Volume: Soft/Quiet Speech pattern: normal rate, normal rhythm Language & Vocabulary: consistent with education Thought Process: Intact Thought Content: Yes Obsessive thoughts, Yes Guilt Attention Span Ability: Capable of Sustained Attention Memory Description: Grossly Intact Patient Reliability: Reliable Historian Fund of knowledge: Yes average Intelligence Estimate: Average Judgment: Limited Insight: Minimal
[2017-08-11] MEDS: diazePAM 5 MG TABLET PO PRN (18:50)
[2017-08-11] MEDS: Melatonin 3 MG TABLET PO SCH (21:10)
[2017-08-12] MEDS: MOM Conc 10 ML UD.LIQ PO SCH (09:18)
[2017-08-12] MEDS: Pyridoxine (B-6) 50 MG TABLET PO SCH (09:19)
[2017-08-12] MEDS: clonazePAM 0.5 MG TABLET PO SCH ×2 (09:19→21:20)
--- NOTE | 2017-08-12 13:47 | Psychiatry Progress Note ---
Date of Encounter: 08/12/17 Time of Encounter: 12:30 Subjective Interval history: Patient seen and discussed on rounds by interdisciplinary treatment team. There were no reported behavioral issues or incident overnight. Patient was calm, cooperative and well related. She reported some improvement in her depressive symptoms but continue to endorse passive fleeting SI with no plan or intent. Nursing reports and noted indicated recent increase in food intake though patient continues to purge after meal. She is currently on close observation. She reported increase anxiety and poor effect of current dose of Viataril. She clarified she was taking 200mg of Sertraline daily with last dose taken a day prior to being admitted to the hospital. Patient currently on 100mg daily and agreed to gradual dose increase to her previous dosage. She is compliant with her medications and denied any side effects. She denied problems with sleep. TSH and T4 level to be reordered today. On review of symptoms, she denied any mood or psychotic symptoms including AH/VH/SI/HI. Review of Systems Constitutional: Denies: fever, chills, weakness, weight change Eyes: Denies: eye pain, vision change Ears, Nose, Throat: Denies: ear pain, throat pain, dental pain, hearing loss, congestion Cardiovascular: Denies: chest pain, palpitations, dyspnea on exertion Respiratory: Denies: cough, dyspnea, wheezes Gastrointestinal: Denies: abdominal pain, nausea, vomiting, diarrhea, constipation Musculoskeletal: Denies: joint swelling, joint pain Neurological: Denies: headache, weakness, numbness, memory loss Psychiatric: Reports: depression, anxiety, change in appetite, memory loss, difficulty concentrating Results - Vital Signs Vital Signs: Temp Pulse Resp BP Pulse Ox 97.2 F L 84 16 90/57 97 08/12/17 09:00 08/12/17 09:00 08/12/17 09:00 08/12/17 09:00 08/09/17 19:48 - Impressions ITS Impressions Abdomen/Pelvis CT 07/30/17 21:41 IMPRESSION: 1. No acute findings within the abdomen or pelvis. No evidence of obstructive uropathy. Mild diffuse colonic stool burden with no acute inflammatory changes. 2. No CT evidence of appendicitis. 3. Previous cholecystectomy and hysterectomy. D/ / 07/30/2017 22:37:10 Suresh Castellanos MD / stephy Interpreting Provider: Suresh Castellanos MD Assessment and Plan (1) Suicidal ideation Current visit: Yes Status: Acute Risks, benefits, side effects, alternatives discussed w/pt: Yes Patient agreeable to treatment: Yes (2) Major depressive disorder, recurrent severe without psychotic features Current visit: Yes Status: Acute Risks, benefits, side effects, alternatives discussed w/pt: Yes Patient agreeable to treatment: Yes (3) Anorexia nervosa, restricting type, extreme Current visit: Yes Status: Acute Risks, benefits, side effects, alternatives discussed w/pt: Yes Patient agreeable to treatment: Yes (4) Hypothyroidism Current visit: Yes Status: Chronic Risks, benefits, side effects, alternatives discussed w/pt: Yes Patient agreeable to treatment: Yes Qualifiers: Hypothyroidism type: due to medication Qualified Code(s): E03.2 - Hypothyroidism due to medicaments and other exogenous substances Consult Discharge Plan - Plan Referrals: [facility] [Outside] - 08/22/17 3:00 pm (The above appointment is with [facility] for mental health counseling services. You will also see Cuong Pinto for outpatient psychiatric assessment and medication management services on 09/06/2017 at 2:30pm. Additionally, case management services will be assigned after meeting with your counselor. The above appointment(s) reflect first availability. You may contact the office regularly to check for cancellations that may allow you to be seen sooner.) Edelmira Mann CNP [Advanced Practice Nurse] - 08/25/17 10:00 am (The above appointment is with Edelmira Mann for primary healthcare and medication management services. ) Psychiatry Exam - Constitutional Vitals: Temp Pulse Resp BP Pulse Ox 97.2 F L 84 16 90/57 97 08/12/17 09:00 08/12/17 09:00 08/12/17 09:00 08/12/17 09:00 08/09/17 19:48 General appearance: malnourished, thin - Musculoskeletal Gait: slow - Psychiatric Patient Orientation: Yes Person, Yes Time, Yes Place, Yes Circumstance Level of alertness: Alert Behavior: calm, cooperative, nervous Psychomotor activity: Normal Eye Contact: Maintains Eye Contact Mood Description: Depressed Affect description: labile, anxious Speech Volume: Normal Speech pattern: normal rate, normal rhythm, normal tone Language & Vocabulary: consistent with education Thought Process: Logical, Goal Oriented Thought Content: Yes Suicidal ideation Perceptual Disturbances: No Auditory hallucinations, No Visual hallucinations Attention Span Ability: Capable of Focused Attention Memory Description: Immediate Impaired Patient Reliability: Reliable Historian Fund of knowledge: Yes average Intelligence Estimate: Average Judgment: Poor Insight: Minimal
[2017-08-12] MEDS: hydrOXYzine pamoate 25 MG CAPSULE PO PRN (14:14)
[2017-08-12] MEDS: Melatonin 3 MG TABLET PO SCH (21:21)
[2017-08-13] MEDS: clonazePAM 0.5 MG TABLET PO SCH ×2 (10:44→21:22)
[2017-08-13] MEDS: Pyridoxine (B-6) 50 MG TABLET PO SCH (10:45)
[2017-08-13] MEDS: MOM Conc 10 ML UD.LIQ PO SCH (10:47)
--- NOTE | 2017-08-13 12:00 | Psychiatry Progress Note ---
Date of Encounter: 08/13/17 Time of Encounter: 11:45 Subjective Interval history: Patient seen and discussed on rounds by interdisciplinary treatment team. There were no reported behavioral issues or incident overnight. Patient was calm, cooperative and well related. BP thos morning noted to be on lower than baseline 97/63. Patient reported slight dizziness with standing and denied any symptoms of low BP. She is able to ambulate without a problems. Conitnue to improve on her daily intake and encouraged to increase her fluid intake. Rreported signifcant improvement in TD though she was still noted to have involuntary movement of the left foot and thumb. She is compliant with her medications and denied any side effects. Reported significant improvement in her depressive but was evasive when asked about suicidal thoughts. Labs reviewed and TSH WNL 1.858. She is compliant with her medications and denied any side effects. She denied problems with sleep. . On review of symptoms, she denied any mood or psychotic symptoms including AH/VH//HI. Review of Systems Constitutional: Denies: fever, chills, weakness, weight change Eyes: Denies: eye pain, vision change Ears, Nose, Throat: Denies: ear pain, throat pain, dental pain, hearing loss, congestion Cardiovascular: Denies: chest pain, palpitations, dyspnea on exertion Respiratory: Denies: cough, dyspnea, wheezes Gastrointestinal: Denies: abdominal pain, nausea, vomiting, diarrhea, constipation Musculoskeletal: Denies: joint swelling, joint pain Neurological: Denies: headache, weakness, numbness, memory loss Psychiatric: Reports: depression, anxiety, change in appetite, memory loss, difficulty concentrating Results - Vital Signs Vital Signs: Temp Pulse Resp BP Pulse Ox 97.9 F 79 16 94/63 97 08/13/17 09:00 08/13/17 09:00 08/13/17 09:00 08/13/17 09:00 08/09/17 19:48 - Labs Labs: Laboratory Results - last 24 hr 08/12/17 15:03 TSH 1.858 - Impressions ITS Impressions Abdomen/Pelvis CT 07/30/17 21:41 IMPRESSION: 1. No acute findings within the abdomen or pelvis. No evidence of obstructive uropathy. Mild diffuse colonic stool burden with no acute inflammatory changes. 2. No CT evidence of appendicitis. 3. Previous cholecystectomy and hysterectomy. D/ / 07/30/2017 22:37:10 Suresh Castellanos MD / stephy Interpreting Provider: Suresh Castellanos MD Assessment and Plan (1) Suicidal ideation Current visit: Yes Status: Acute Risks, benefits, side effects, alternatives discussed w/pt: Yes Patient agreeable to treatment: Yes (2) Major depressive disorder, recurrent severe without psychotic features Current visit: Yes Status: Acute Risks, benefits, side effects, alternatives discussed w/pt: Yes Patient agreeable to treatment: Yes (3) Anorexia nervosa, restricting type, extreme Current visit: Yes Status: Acute Risks, benefits, side effects, alternatives discussed w/pt: Yes Patient agreeable to treatment: Yes (4) Hypothyroidism Current visit: Yes Status: Chronic Risks, benefits, side effects, alternatives discussed w/pt: Yes Patient agreeable to treatment: Yes Qualifiers: Hypothyroidism type: due to medication Qualified Code(s): E03.2 - Hypothyroidism due to medicaments and other exogenous substances Consult Discharge Plan - Plan Referrals: [facility] [Outside] - 08/22/17 3:00 pm (The above appointment is with [facility] for mental health counseling services. You will also see Cuong Pinto for outpatient psychiatric assessment and medication management services on 09/06/2017 at 2:30pm. Additionally, case management services will be assigned after meeting with your counselor. The above appointment(s) reflect first availability. You may contact the office regularly to check for cancellations that may allow you to be seen sooner.) Edelmira Mann CNP [Advanced Practice Nurse] - 08/25/17 10:00 am (The above appointment is with Edelmira Mann for primary healthcare and medication management services. ) Psychiatry Exam - Constitutional Vitals: Temp Pulse Resp BP Pulse Ox 97.9 F 79 16 94/63 97 08/13/17 09:00 08/13/17 09:00 08/13/17 09:00 08/13/17 09:00 08/09/17 19:48 General appearance: malnourished - Musculoskeletal Gait: normal - Psychiatric Patient Orientation: Yes Person, Yes Time, Yes Place, Yes Circumstance Level of alertness: Alert Behavior: calm, cooperative Psychomotor activity: Normal Eye Contact: Maintains Eye Contact Mood Description: Depressed Affect description: congruent with mood Speech Volume: Normal Speech pattern: normal rate, normal rhythm, normal tone Language & Vocabulary: consistent with education Thought Process: Logical, Goal Oriented Thought Content: No Suicidal ideation, No Homicidal ideation, No Overt delusions Perceptual Disturbances: No Auditory hallucinations, No Visual hallucinations Attention Span Ability: Capable of Focused Attention Memory Description: Immediate Impaired Patient Reliability: Reliable Historian Fund of knowledge: Yes average Intelligence Estimate: Average Judgment: Poor Insight: Minimal
[2017-08-13] MEDS: Melatonin 3 MG TABLET PO SCH (21:19)
[2017-08-13] MEDS: traZODone 50 MG TABLET PO PRN (21:22)
[2017-08-14 08:18] LABS: Alanine Aminotransferase 13 Units/L (7-52); Albumin 3.6 g/dL (3.5-5.7); Albumin/Globulin Ratio 1.6 (1.1-2.2); Alkaline Phosphatase 24 Units/L (34-104); Aspartate Amino Transferase 16 Units/L (13-39); BUN/Creatinine Ratio 17 (6-26); Bilirubin,Total 0.3 mg/dL (0.3-1.0); Blood Urea Nitrogen 15 mg/dL (6-20); Calcium 9.2 mg/dL (8.6-10.3); Carbon Dioxide 31 mEq/L (23-29); Chloride 105 mEq/L (98-107); Chol/HDL Ratio 3.7 (0-4.9); Cholesterol 158 mg/dL (< 200); Globulin 2.3 g/dL (2.4-3.5); Glucose 92 mg/dL (70-105); HDL Cholesterol 43 mg/dL (40-59); LDL Cholesterol,Calculated 98 mg/dL (0-99); Osmolality,Calculated 292 (280-300); Potassium 4.7 mEq/L (3.5-5.1); Sodium 141 mEq/L (136-145); Total Protein 5.9 g/dL (6.4-8.9); Triglycerides 86 mg/dL (< 150); eGFR For African Americans > 60 (> 60); eGFR For Non-African Americans > 60 (> 60)
[2017-08-14] MEDS: Pyridoxine (B-6) 50 MG TABLET PO SCH (09:25)
[2017-08-14] MEDS: clonazePAM 0.5 MG TABLET PO SCH ×2 (09:25→22:05)
[2017-08-14] MEDS: MOM Conc 10 ML UD.LIQ PO SCH (09:27)
--- NOTE | 2017-08-14 11:42 | Psychiatry Progress Note ---
Date of Encounter: 08/14/17 Time of Encounter: 11:15 Subjective Interval history: Ms. Forbes was seen today , chart reviewed and case d/w treatment team. patient has long h/o mental illness and has multiple hospitaization. she carries dx of Depression, ANorexia, PTSD and psychosis AND PSEUDO SEIZURES. She also has been dx with TD , at present her score is improving and she herself feels better , her mouth movements have significantly improved and she can feel it. dhe remains to her self/isolative and mostly in her room and has been monitored after her meals so no purging, she has denied any throwing up for 2 days , she is eating her meals , remains depress states i feel little better , i talked to my sister for long time, denies suicidal ideation , remains paranoid , as per her she still is paranoid. she is on seroquel 800 mg and amantadine for her movement disorder. she denies side effects aT PRESENT. Patient need stabilization , remains paranoid and depress. Review of Systems Psychiatric: Reports: depression, anxiety, change in appetite, memory loss, difficulty concentrating Results - Vital Signs Vital Signs: Temp Pulse Resp BP Pulse Ox 97.3 F L 72 8 105/63 97 08/14/17 09:00 08/14/17 09:00 08/14/17 09:00 08/14/17 09:00 08/09/17 19:48 - Labs Labs: Laboratory Results - last 24 hr 08/14/17 07:41 Sodium 141 Potassium 4.7 Chloride 105 Carbon Dioxide 31 H BUN 15 Creatinine 0.89 Est GFR ( Amer) > 60 Est GFR (Non-Af Amer) > 60 BUN/Creatinine Ratio 17 Glucose 92 Calculated Osmolality 292 Calcium 9.2 Total Bilirubin 0.3 AST 16 ALT 13 Alkaline Phosphatase 24 L Serum Total Protein 5.9 L Albumin 3.6 Globulin 2.3 L Albumin/Globulin Ratio 1.6 Triglycerides 86 Cholesterol 158 LDL Cholesterol, Calc 98 VLDL Cholesterol, Calc 17 HDL Cholesterol 43 Cholesterol/HDL Ratio 3.7 - Impressions ITS Impressions Abdomen/Pelvis CT 07/30/17 21:41 IMPRESSION: 1. No acute findings within the abdomen or pelvis. No evidence of obstructive uropathy. Mild diffuse colonic stool burden with no acute inflammatory changes. 2. No CT evidence of appendicitis. 3. Previous cholecystectomy and hysterectomy. D/ / 07/30/2017 22:37:10 Suresh Castellanos MD / stephy Interpreting Provider: Suresh Castellanos MD Assessment and Plan (1) Major depressive disorder, recurrent severe without psychotic features Current visit: Yes Status: Acute Plan: Continue hospitalization, Close observation, Suicide Precautions per unit protocol, Encourage participation in unit milieu, Group Therapy, Monitor sleep, Monitor appetite, Secure weapons, Family/Supportive other meeting Additional Plan: increase zoloft to 150 mg Risks, benefits, side effects, alternatives discussed w/pt: Yes Patient agreeable to treatment: Yes (2) Tardive dyskinesia Current visit: Yes Status: Chronic Plan: Continue hospitalization, Close observation, Suicide Precautions per unit protocol, Encourage participation in unit milieu, Group Therapy, Monitor sleep, Monitor appetite, Family/Supportive other meeting Risks, benefits, side effects, alternatives discussed w/pt: Yes Patient agreeable to treatment: Yes (3) Anorexia nervosa, restricting type, extreme Current visit: Yes Status: Acute Plan: Continue hospitalization, Close observation, Suicide Precautions per unit protocol, Encourage participation in unit milieu, Group Therapy, Monitor sleep, Monitor appetite, Family/Supportive other meeting Risks, benefits, side effects, alternatives discussed w/pt: Yes Patient agreeable to treatment: Yes (4) Post traumatic stress disorder (PTSD) Current visit: Yes Status: Chronic Plan: Continue hospitalization, Close observation, Suicide Precautions per unit protocol, Encourage participation in unit milieu, Group Therapy, Monitor sleep, Monitor appetite, Secure weapons, Family/Supportive other meeting Risks, benefits, side effects, alternatives discussed w/pt: Yes Patient agreeable to treatment: Yes Consult Discharge Plan - Plan Referrals: [facility] [Outside] - 08/22/17 3:00 pm (The above appointment is with [facility] for mental health counseling services. You will also see Cuong Pinto for outpatient psychiatric assessment and medication management services on 09/06/2017 at 2:30pm. Additionally, case management services will be assigned after meeting with your counselor. The above appointment(s) reflect first availability. You may contact the office regularly to check for cancellations that may allow you to be seen sooner.) Edelmira Mann, CAMPUS DIRECTOR [Advanced Practice Nurse] - 08/25/17 10:00 am (The above appointment is with Edelmira Mann for primary healthcare and medication management services. ) Psychiatry Exam - Constitutional Vitals: Temp Pulse Resp BP Pulse Ox 97.3 F L 72 8 105/63 97 08/14/17 09:00 08/14/17 09:00 08/14/17 09:00 08/14/17 09:00 08/09/17 19:48 General appearance: age & developmentally appropriate - Musculoskeletal Gait: slow Station: other Strength & Tone: normal for patient - Psychiatric Patient Orientation: Yes Person, Yes Time, Yes Place Level of alertness: Alert Behavior: cooperative, withdrawn Psychomotor activity: Slowed Eye Contact: Minimal Contact Mood Description: Depressed, Anxious Affect description: congruent with mood Speech Volume: Soft/Quiet Speech pattern: coherent, slowed Language & Vocabulary: consistent with education Thought Process: Slowed Thinking Thought Content: Yes Preoccupation, Yes Paranoid delusion Perceptual Disturbances: No Auditory hallucinations, No Visual hallucinations Attention Span Ability: Capable of Focused Attention Memory Description: Grossly Intact Patient Reliability: Reliable Historian Fund of knowledge: Yes average Intelligence Estimate: Average Judgment: Fair Insight: Partial
[2017-08-14] MEDS: hydrOXYzine pamoate 25 MG CAPSULE PO PRN ×2 (14:46→22:06)
[2017-08-14] MEDS: Melatonin 3 MG TABLET PO SCH (22:05)
[2017-08-14] MEDS: traZODone 50 MG TABLET PO PRN (22:28)
[2017-08-15] MEDS: clonazePAM 0.5 MG TABLET PO SCH ×2 (09:03→21:01)
[2017-08-15] MEDS: Pyridoxine (B-6) 50 MG TABLET PO SCH (09:03)
[2017-08-15] MEDS: MOM Conc 10 ML UD.LIQ PO SCH (09:08)
[2017-08-15] MEDS: hydrOXYzine pamoate 25 MG CAPSULE PO PRN ×2 (14:43→21:00)
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
[2017-08-15] MEDS: Melatonin 3 MG TABLET PO SCH (21:00)
[2017-08-15] MEDS: traZODone 50 MG TABLET PO PRN (21:01)
[2017-08-16] MEDS: Pyridoxine (B-6) 50 MG TABLET PO SCH (09:47)
[2017-08-16] MEDS: clonazePAM 0.5 MG TABLET PO SCH ×2 (09:47→21:29)
[2017-08-16] MEDS: MOM Conc 10 ML UD.LIQ PO SCH (09:48)
[2017-08-16] MEDS ORDERED: SUMAtriptan succinate 25 MG TABLET PO ONE (11:38)
--- NOTE | 2017-08-16 11:42 | Psychiatry Progress Note ---
Date of Encounter: 08/16/17 Time of Encounter: 11:25 Subjective Interval history: Patient seen today , case d/w treatment team She is showing improvement in her moods, diet and will get weight today. she is c/o migrain starting today and take imitrex , so will give imitrex po one time. she slept well , is interacting more and is compliant with medications. she denies suicidal thoughts , denies hi. denies a/v hallucinations and low grade paranoia. denies side effects. Review of Systems Psychiatric: Reports: depression, anxiety, change in appetite, memory loss, difficulty concentrating Results - Vital Signs Vital Signs: Temp Pulse Resp BP Pulse Ox 97.6 F 77 16 93/61 97 08/16/17 09:00 08/16/17 09:00 08/16/17 09:00 08/16/17 09:00 08/09/17 19:48 - Impressions ITS Impressions Abdomen/Pelvis CT 07/30/17 21:41 IMPRESSION: 1. No acute findings within the abdomen or pelvis. No evidence of obstructive uropathy. Mild diffuse colonic stool burden with no acute inflammatory changes. 2. No CT evidence of appendicitis. 3. Previous cholecystectomy and hysterectomy. D/ / 07/30/2017 22:37:10 Suresh Castellanos MD / stephy Interpreting Provider: Suresh Castellanos MD Assessment and Plan (1) Major depressive disorder, recurrent severe without psychotic features Current visit: Yes Status: Acute Risks, benefits, side effects, alternatives discussed w/pt: Yes Patient agreeable to treatment: Yes (2) Tardive dyskinesia Current visit: Yes Status: Chronic Risks, benefits, side effects, alternatives discussed w/pt: Yes Patient agreeable to treatment: Yes (3) Anorexia nervosa, restricting type, extreme Current visit: Yes Status: Acute Risks, benefits, side effects, alternatives discussed w/pt: Yes Patient agreeable to treatment: Yes (4) Post traumatic stress disorder (PTSD) Current visit: Yes Status: Chronic Risks, benefits, side effects, alternatives discussed w/pt: Yes Patient agreeable to treatment: Yes Consult Discharge Plan - Plan Referrals: [facility] [Outside] - 08/22/17 3:00 pm (The above appointment is with [facility] for mental health counseling services. You will also see Cuong Pinto for outpatient psychiatric assessment and medication management services on 09/06/2017 at 2:30pm. Additionally, case management services will be assigned after meeting with your counselor. The above appointment(s) reflect first availability. You may contact the office regularly to check for cancellations that may allow you to be seen sooner.) Edelmira Mann, [employer] [Advanced Practice Nurse] - 08/25/17 10:00 am (The above appointment is with Edelmira Mann for primary healthcare and medication management services. ) Psychiatry Exam - Constitutional Vitals: Temp Pulse Resp BP Pulse Ox 97.6 F 77 16 93/61 97 08/16/17 09:00 08/16/17 09:00 08/16/17 09:00 08/16/17 09:00 08/09/17 19:48 General appearance: age & developmentally appropriate, well-groomed, well- nourished - Musculoskeletal Gait: normal Station: relaxed Strength & Tone: normal for patient - Psychiatric Patient Orientation: Yes Person, Yes Time, Yes Place Level of alertness: Alert Behavior: calm, cooperative Psychomotor activity: Normal Eye Contact: Maintains Eye Contact Mood Description: Depressed, Anxious Affect description: congruent with mood Speech Volume: Normal Speech pattern: normal rate, normal rhythm, normal tone, fluent, spontaneous Language & Vocabulary: consistent with education Thought Process: Logical Thought Content: No Suicidal ideation, No Homicidal ideation, No Overt delusions , Yes Paranoid delusion Perceptual Disturbances: No Auditory hallucinations, No Visual hallucinations Attention Span Ability: Capable of Focused Attention Memory Description: Grossly Intact Patient Reliability: Reliable Historian Fund of knowledge: Yes abstraction ability, Yes aware of current events Intelligence Estimate: Average Judgment: Limited Insight: Partial
[2017-08-16] MEDS: Melatonin 3 MG TABLET PO SCH (21:27)
[2017-08-16] MEDS: hydrOXYzine pamoate 25 MG CAPSULE PO PRN (21:28)
[2017-08-16] MEDS: Acetaminophen 325 MG TABLET PO PRN (22:57)
[2017-08-17] MEDS: clonazePAM 0.5 MG TABLET PO SCH ×2 (08:19→20:28)
[2017-08-17] MEDS: Pyridoxine (B-6) 50 MG TABLET PO SCH (08:19)
[2017-08-17] MEDS: MOM Conc 10 ML UD.LIQ PO SCH (08:41)
--- NOTE | 2017-08-17 10:43 | Psychiatry Progress Note ---
Date of Encounter: 08/17/17 Time of Encounter: 10:20 Subjective Interval history: Patient seen today , case d/w treatment. she has shown improvement , her weight has been better, she is somewhat upset that has gained weight. she was given counselling and understands her thought process , educated her BMI is 19 and she should continue what she has been doing regarding compliance and eating 3 meals , she denies any purging for several days now, staff is also monitoring it. she has shown improvement in her depression. anxiety and sleep better. her friend and friends son lives with her. start discharge planning. Review of Systems Psychiatric: Reports: depression, anxiety, change in appetite, memory loss, difficulty concentrating Results - Vital Signs Vital Signs: Temp Pulse Resp BP Pulse Ox 98.4 F 81 16 95/66 97 08/16/17 21:00 08/16/17 21:00 08/16/17 21:00 08/16/17 21:00 08/09/17 19:48 - Impressions ITS Impressions Abdomen/Pelvis CT 07/30/17 21:41 IMPRESSION: 1. No acute findings within the abdomen or pelvis. No evidence of obstructive uropathy. Mild diffuse colonic stool burden with no acute inflammatory changes. 2. No CT evidence of appendicitis. 3. Previous cholecystectomy and hysterectomy. D/ / 07/30/2017 22:37:10 Suresh Castellanos MD / stephy Interpreting Provider: Suresh Castellanos MD Assessment and Plan (1) Major depressive disorder, recurrent severe without psychotic features Current visit: Yes Status: Acute Risks, benefits, side effects, alternatives discussed w/pt: Yes Patient agreeable to treatment: Yes (2) Tardive dyskinesia Current visit: Yes Status: Chronic Risks, benefits, side effects, alternatives discussed w/pt: Yes Patient agreeable to treatment: Yes (3) Anorexia nervosa, restricting type, extreme Current visit: Yes Status: Acute Risks, benefits, side effects, alternatives discussed w/pt: Yes Patient agreeable to treatment: Yes (4) Post traumatic stress disorder (PTSD) Current visit: Yes Status: Chronic Risks, benefits, side effects, alternatives discussed w/pt: Yes Patient agreeable to treatment: Yes Consult Discharge Plan - Plan Referrals: [facility] [Outside] - 08/22/17 3:00 pm (The above appointment is with [facility] for mental health counseling services. You will also see Cuong Pinto for outpatient psychiatric assessment and medication management services on 09/06/2017 at 2:30pm. Additionally, case management services will be assigned after meeting with your counselor. The above appointment(s) reflect first availability. You may contact the office regularly to check for cancellations that may allow you to be seen sooner.) Edelmira Mann CNP [Advanced Practice Nurse] - 08/25/17 10:00 am (The above appointment is with Edelmira Mann for primary healthcare and medication management services. ) Psychiatry Exam - Constitutional Vitals: Temp Pulse Resp BP Pulse Ox 98.4 F 81 16 95/66 97 08/16/17 21:00 08/16/17 21:00 08/16/17 21:00 08/16/17 21:00 08/09/17 19:48 General appearance: thin - Musculoskeletal Gait: normal Station: relaxed Strength & Tone: normal for patient - Psychiatric Patient Orientation: Yes Person, Yes Time, Yes Place Level of alertness: Alert Behavior: calm, cooperative Psychomotor activity: Normal Eye Contact: Maintains Eye Contact Mood Description: Anxious Affect description: congruent with mood, full range Speech Volume: Normal Speech pattern: normal rate, normal rhythm, normal tone, fluent, spontaneous Language & Vocabulary: consistent with education Thought Process: Linear, Goal Oriented Thought Content: No Suicidal ideation, No Homicidal ideation, No Overt delusions Perceptual Disturbances: No Auditory hallucinations, No Visual hallucinations Attention Span Ability: Capable of Focused Attention Memory Description: Grossly Intact Patient Reliability: Reliable Historian Fund of knowledge: Yes abstraction ability, Yes aware of current events Intelligence Estimate: Average Judgment: Limited Insight: Partial
[2017-08-17] MEDS: Acetaminophen 325 MG TABLET PO PRN (11:43)
[2017-08-17] MEDS: hydrOXYzine pamoate 25 MG CAPSULE PO PRN ×2 (14:27→20:45)
[2017-08-17] MEDS: Melatonin 3 MG TABLET PO SCH (20:27)
[2017-08-17] MEDS: traZODone 50 MG TABLET PO PRN (20:44)
[2017-08-18] MEDS: Pyridoxine (B-6) 50 MG TABLET PO SCH (09:38)
[2017-08-18] MEDS: clonazePAM 0.5 MG TABLET PO SCH (09:38)
[2017-08-18] MEDS: MOM Conc 10 ML UD.LIQ PO SCH (09:45)
[2017-08-18 10:02] VITALS: BP 97/61
--- NOTE | 2017-08-18 10:22 | Discharge Summary ---
Date of Encounter: 08/18/17 Time of Encounter: 10:05 Diagnosis - Discharge Diagnosis (1) Major depressive disorder, recurrent severe without psychotic features Status: Acute Comments: patient showed improvement and depression stable , she is not suicidal or homicidal (2) Tardive dyskinesia Status: Chronic Comments: patient TD much better on examinationand self report, her haldol was changed to seroquel and amantadine helped. (3) Anorexia nervosa, restricting type, extreme Status: Chronic Comments: patient has not vomited in 6 days , her weight has increased to119 and labs improved. (4) Post traumatic stress disorder (PTSD) Status: Chronic Comments: patient sleeping better and moods stable. Medications - Discharge Medications Prescriptions: Amantadine [Symmetrel] 100 mg PO BID #30 capsule clonazePAM [Klonopin] 0.5 mg PO BID 7 Days #14 tablet Levothyroxine [Synthroid] 125 mcg PO DAILY@0630 #14 tablet Quetiapine Fumarate [Seroquel] 800 mg PO HS #60 tablet Sertraline [Zoloft] 100 mg PO HS #14 tablet Sertraline [Zoloft] 50 mg PO DAILY #14 tablet traZODone [TraZODone] 50 mg PO HS PRN #14 tablet PRN Reason: Insomnia Levothyroxine [Synthroid] 125 mcg PO QAM 03/25/15 [History] Sertraline [Zoloft] 100 mg PO HS #30 tablet 05/20/16 [Rx] Ezetimibe [Zetia] 10 mg PO DAILY 07/29/17 [History] hydrOXYzine pamoate [HydrOXYzine Pamoate] 50 mg PO TID PRN 07/29/17 [History] Amantadine [Symmetrel] 100 mg PO BID #30 capsule 08/18/17 [Rx] Levothyroxine [Synthroid] 125 mcg PO DAILY@0630 #14 tablet 08/18/17 [Rx] Melatonin 9 mg PO HS tablet 08/18/17 [Rx] Omeprazole [PriLOSEC] 20 mg PO BIDAC capsule. 08/18/17 [Rx] Pyridoxine (B-6) [Vitamin B-6] 50 mg PO DAILY tablet 08/18/17 [Rx] Quetiapine Fumarate [Seroquel] 800 mg PO HS #60 tablet 08/18/17 [Rx] Sertraline [Zoloft] 50 mg PO DAILY #14 tablet 08/18/17 [Rx] Sertraline [Zoloft] 100 mg PO HS #14 tablet 08/18/17 [Rx] Vitamin E 400 unit PO DAILY capsule 08/18/17 [Rx] clonazePAM [Klonopin] 0.5 mg PO BID 7 Days #14 tablet 08/18/17 [Rx] traZODone [TraZODone] 50 mg PO HS PRN #14 tablet 08/18/17 [Rx] 3 Allergy/AdvReac Type Severity Reaction Status Date / Time duloxetine [From Cymbalta] Allergy Difficulty Verified 07/28/17 19:38 Breathing moxifloxacin [From Avelox] Allergy Hives Verified 07/28/17 19:38 Penicillins Allergy Difficulty Verified 07/28/17 19:38 Breathing haloperidol [From Haldol] AdvReac Severe See Verified 07/29/17 07:45 Comments Results Procedures and tests throughout hospitalization: Completed Lab Orders Category Date Time Status BMP [Basic Metabolic Panel] AM 0400 Lab 07/31/17 09:17 Completed CMP [Comprehensive Metabolic Panel] Routine Lab 07/31/17 09:17 Completed CMP [Comprehensive Metabolic Panel] Stat Lab 07/30/17 20:41 Completed Chem 13 [Comprehensive Metabolic Panel] Routine Lab 08/03/17 11:39 Completed Chem 13 [Comprehensive Metabolic Panel] Routine Lab 08/05/17 13:34 Completed Chem 13 [Comprehensive Metabolic Panel] Routine Lab 08/08/17 07:36 Completed Chem 13 [Comprehensive Metabolic Panel] Routine Lab 08/11/17 10:30 Completed Chem 13 [Comprehensive Metabolic Panel] Routine Lab 08/14/17 07:41 Completed Complete Blood Count [HEME] AM 0400 Lab 07/31/17 09:17 Completed Complete Blood Count [HEME] Stat Lab 07/30/17 20:41 Completed Lipid Panel Routine Lab 08/14/17 07:41 Completed Magnesium AM 0400 Lab 07/31/17 09:17 Completed Magnesium Stat Lab 07/30/17 20:41 Completed PT/INR [Prothrombin Time INR] [COAG] Stat Lab 07/30/17 20:41 Completed Phosphorous Stat Lab 07/30/17 20:41 Completed TSH [Thyroid Stimulating Hormone] Routine Lab 08/03/17 16:21 Completed Thyroid Stimulating Hormone Routine Lab 08/12/17 15:03 Completed Urinalysis Reflex Cult & Micro [URIN] Routine Lab 08/03/17 12:00 Completed Completed Imaging Orders Category Date Time Status CT abd pelvis wo no iv no oral [CT] Stat Cat Scan 07/30/17 21:41 Completed Provider Date of admission: 07/29/17 05:17 Primary care physician: PCP NONE Consults: 07/30/17 19:58 Consult to Hospitalist [CONS] Stat Consulting Provider: Hospitalist Bill Reason for Consult: Not eating, vomiting, small amount of blood noted, May have a UTI but unable to urinate at this time, Pain in Back Call Completed: Yes 07/30/17 20:43 consult to critical care physician [Consult to Nutrition] [CONS] Routine Comment: Consulting Provider: NUTRITION Reason for Dietary Consult: Diet Education 07/30/17 20:45 Consult to Gastroenterology [CONS] Routine Consulting Provider: [facility] [place] Reason for Consult: Hematemesis Call Completed: No Psychiatry Exam - Constitutional Vitals: Temp Pulse Resp BP Pulse Ox 97.6 F 79 16 97/61 97 08/18/17 09:00 08/18/17 09:00 08/18/17 09:00 08/18/17 09:00 08/09/17 19:48 General appearance: age & developmentally appropriate, well-groomed, well- nourished - Musculoskeletal Gait: normal Station: relaxed Strength & Tone: normal for patient - Psychiatric Patient Orientation: Yes Person, Yes Time, Yes Place Level of alertness: Alert Behavior: calm, cooperative Psychomotor activity: Normal Eye Contact: Maintains Eye Contact Mood Description: Euthymic/stable Affect description: constricted Speech Volume: Normal Speech pattern: normal rate, normal rhythm, normal tone, fluent, spontaneous Language & Vocabulary: consistent with education Thought Process: Linear, Goal Oriented Thought Content: No Suicidal ideation, No Homicidal ideation, No Overt delusions Perceptual Disturbances: No Auditory hallucinations, No Visual hallucinations Attention Span Ability: Capable of Focused Attention Memory Description: Grossly Intact Patient Reliability: Reliable Historian Fund of knowledge: Yes abstraction ability, Yes aware of current events Intelligence Estimate: Average Judgment: Fair Insight: Partial Hospital Course Hospital course: Ms. Pak is a 42 year old female The patient is a 42-year-old white female who was admitted through the ER. Her CC on admission was I came for my thyroid. History of present illness: The patient has 3 kids and one step. Her and 2 grandsons that she has been worried about. For the past 4 months the patient has not taking her thyroid medicine. This is in strategy to stop eating and 10 not lose weight. The patient had her thyroid checked and was told that the TSH is normally at 3.7 but hers was at 47. She was told that she needed to start her thyroid medicine back. The patient reports multiple stressors over the past year. Her father her [id number] in 1 week ago her mother . The patient has anorexia nervosa primarily of the restrictive type. She denies binging purging or the use of laxatives in the recent past. The patient has low self-esteem low mood diminished interest guilt ruminations somatic concern decreased energy poor concentration poor memory weight loss and decreased sleep. Patient's ideal body weight she says is 100 pounds and she is 104. patient needs no meals and snacks throughout the day. the patient has a long history of anorexia nervosa and psychiatric disorder. the patient has a history of p [place], psychogenic nonepileptic form seizure activity. With an EEG being read as normal. The patient was told that the seizures were brought on by stress. The patient was last hospitalized in this hospital in 2017. She was discharged on the same medicines that she is on now. However this also included Haldol 10 mg twice a day. She has been on Haldol 10 mg twice a day for many years. Her psychiatric hospitalization records go back bout 20 years and involved multiple institutions. There is referred other documents for complete list. Within this period of time and since the most recent neurologic consultation the patient is developed tardive dyskinesia. Dr. Hutchins at [place] prescribed Cogentin in increasing doses to try and treat this. The tardive dyskinesia socially disabling affecting breathing affecting movement and the patient was interviewed today in a hospital bed in the quiet room. During her stay from 07/29 , she has shown significant improvement ,she is eating better, interacting and sleeping better, still has thoughts of being overweight , but has learned coping skills and now weighs 119 lbs, she is not depressed , no hopeless feeling , states i will be down as i miss my mom but me and sister and brother are close. She initially was consulted for haemaestasis and alsoseen by GI , which was dx as self induced secondary to vomiting and her HG remain stable, abs improved . She was on Haldol for long time and developed TD and Dr Lopez who had initially seen her dc haldol and started seroquel and changed cogentin to AMANTADINE , She felt better , her mouth movements have improved a lot as per her thet are better drastically. She is less anxious and has not purged in 7 days. she denies psychosis,no si/no hi. she at present not in imment danger to self/others and therefore will be discharge with her family. Time spent discussing smoking cessation with patient: 3 to 10 minutes Does patient wish to continue nicotine replacement upon disc: No (patient former smoker) - Time Spent with Patient Total time spent providing and/or coordinating discharge services: Less than 30 minutes Assessment and Plan - Patient/Caregiver Discharge Instructions Activity: resume usual activities as tolerated Diet: regular diet - Follow up Plan Follow up with: [facility] [Outside] - 08/22/17 3:00 pm (The above appointment is with [facility] for mental health counseling services. You will also see Cuong Pinto for outpatient psychiatric assessment and medication management services on 09/06/2017 at 2:30pm. Additionally, case management services will be assigned after meeting with your counselor. The above appointment(s) reflect first availability. You may contact the office regularly to check for cancellations that may allow you to be seen sooner.) Edelmira Mann, KARIN [Advanced Practice Nurse] - 08/25/17 10:00 am (The above appointment is with Edelmira Mann for primary healthcare and medication management services. ) Overall status at discharge: Stable Disposition: Home, Self-Care Quality - Multiple Antipsychotics Patient discharged on 2 or more antipsychotic medications: No Procedures - Procedures Procedures: Medication Management, Crisis Stabilization, Supportive Therapy, Group Therapy, Psychoeducational Therapy
== END 2017-08-18 12:30 | disposition home or self-care (01) | DRG 751 ==
LOC: EMEROO 19:23 → 1ANU 07-29 05:04 → SUATTDRO 07-29 05:17 → 1ANU 07-29 05:17
PROVIDERS: ADMIT Student in an Organized Health Care Education/Training Program; ATTEND Psychiatry & Neurology Psychiatry